=== PATIENT | male | born 1950 | race Caucasian/White ===

== ENCOUNTER → 2016-08-14 | Outpatient (CLI) | payer OTHER, BC ==
[2016-08-14 11:30] LABS: HEMATOCRIT 38.1 % (42-52); MEAN CELL VOLUME 84.9 fL (80-100); MEAN CORPUSCULAR HEMOGLOBIN 28.3 pg (25-34); MEAN CORPUSCULAR HGB CONC 33.3 g/dl (32-36); MEAN PLATELET VOLUME 10.5 fL (7.4-10.4); PLATELET COUNT 270 K/uL (130-400); RED BLOOD COUNT 4.49 M/uL (4.7-6.1); WHITE BLOOD COUNT 6.91 K/uL (4.8-10.8)
[2016-08-14 11:53] LABS: BLOOD UREA NITROGEN 35 mg/dl (7-18); BUN/CREATININE RATIO 19.6 (10-20); CALCIUM 8.9 mg/dl (8.5-10.1); CARBON DIOXIDE 26 mmol/L (21-32); CHLORIDE 107 mmol/L (98-107); GLUCOSE 168 mg/dl (70-99); POTASSIUM 4.8 mmol/L (3.5-5.1); SODIUM 140 mmol/L (136-145)
[2016-08-14 11:55] LABS: URINE PROTIEN/CREAT RATIO 1.9 (0-0.2); URINE TOTAL PROTEIN 158.1 mg/dl (0-11.9)
[2016-08-14 12:04] LABS: PHOSPHORUS 4.1 mg/dl (2.5-4.9)
[2016-08-14 12:06] LABS: URINE APPEARANCE CLEAR (CLEAR); URINE BILIRUBIN NEG (NEG); URINE COLOR YELLOW; URINE NITRITE NEG (NEG); URINE SPECIFIC GRAVITY 1.009 (1.000-1.030); UROBILINOGEN NEG (NEG)
[2016-08-14 12:28] LABS: MANUAL MICROSCOPIC REQUIRED? NO; REVIEW REQ? NO
== END | disposition home or self-care (01) ==
LOC: C.LABBC 08:11
PROVIDERS: ATTEND Internal Medicine Nephrology
DX: I10 Essential (primary) hypertension (principal); D64.9 Anemia, unspecified; N18.3 Chronic kidney disease, stage 3 (moderate); R80.9 Proteinuria, unspecified; E55.9 Vitamin D deficiency, unspecified; E11.65 Type 2 diabetes mellitus with hyperglycemia

== ENCOUNTER → 2016-09-11 | Outpatient (CLI) | payer OTHER, BC ==
[2016-09-11 13:49] LABS: ESTIMATED AVERAGE GLUCOSE 203 mg/dl; HA1C FLAG Normal (Normal)
== END | disposition home or self-care (01) ==
LOC: C.LABBC 10:19
PROVIDERS: ATTEND Nurse Practitioner Family
DX: E11.3299 Type 2 diabetes mellitus with mild nonproliferative diabetic retinopathy without macular edema, unspecified eye (principal)

== ENCOUNTER → 2016-10-05 | Outpatient (CLI) | payer OTHER, BC ==
--- NOTE | 2016-10-05 09:52 | DIAGNOSTIC IMAGING REPORT ---
CHEST 2 VIEWS ROUTINE CLINICAL HISTORY: J20.9 Acute [id number] dyspnea COMPARISON STUDY: No previous studies for comparison. FINDINGS: The bones soft tissues and hemidiaphragms are normal. The cardiomediastinal silhouette is normal. The lungs are clear. The pulmonary vasculature is normal. IMPRESSION: Negative chest. Electronically signed by: Alvarado Parikh M.D. 10/05/2016 9:51 AM Dictated Date/Time: 10/05/2016 9:51 AM
== END | disposition home or self-care (01) ==
LOC: C.RADBC 09:38
PROVIDERS: ATTEND Physician Assistant Medical
DX: J20.9 Acute bronchitis, unspecified (principal)

== ENCOUNTER → 2016-12-12 | Outpatient (CLI) | payer OTHER, BC ==
[~2016-12-12] MED LIST: ASPEC325 PO; ASPI81TA28 PO; ATOR-26 PO; CARV12.52 PO; CPR/500 PO; ERGO500037 PO; FURO-85 PO; INSU1.2I SQ; INSU1INJ2 SQ; LOSA100T65 PO; NTRGSL/4 UT; VNTHFA/IN INH; XRL15 PO
[2016-12-12 13:34] LABS: HEMATOCRIT 39.8 % (42-52); MEAN CELL VOLUME 86.1 fL (80-100); MEAN CORPUSCULAR HEMOGLOBIN 28.1 pg (25-34); MEAN CORPUSCULAR HGB CONC 32.7 g/dl (32-36); MEAN PLATELET VOLUME 9.8 fL (7.4-10.4); PLATELET COUNT 278 K/uL (130-400); RED BLOOD COUNT 4.62 M/uL (4.7-6.1); WHITE BLOOD COUNT 6.79 K/uL (4.8-10.8)
[2016-12-12 14:08] LABS: CALCIUM 8.6 mg/dl (8.5-10.1)
[2016-12-12 14:16] LABS: URINE APPEARANCE CLEAR (CLEAR); URINE BILIRUBIN NEG (NEG); URINE COLOR YELLOW; URINE EPITHELIAL CELL AUTO 0-5 /lpf (0-5); URINE NITRITE NEG (NEG); URINE SPECIFIC GRAVITY 1.016 (1.000-1.030); UROBILINOGEN NEG (NEG)
[2016-12-12 14:17] LABS: URINE PROTIEN/CREAT RATIO 2.5 (0-0.2); URINE TOTAL PROTEIN 214.3 mg/dl (0-11.9)
[2016-12-12 14:19] LABS: ESTIMATED AVERAGE GLUCOSE 217 mg/dl; HA1C FLAG Normal (Normal)
[2016-12-12 14:24] LABS: MANUAL MICROSCOPIC REQUIRED? NO; REVIEW REQ? NO
[2016-12-12 14:27] LABS: BLOOD UREA NITROGEN 40 mg/dl (7-18); BUN/CREATININE RATIO 17.5 (10-20); CARBON DIOXIDE 24 mmol/L (21-32); CHLORIDE 110 mmol/L (98-107); FERRITIN 73.6 ng/ml (8.0-388.0); GLUCOSE 46 mg/dl (70-99); PHOSPHORUS 3.8 mg/dl (2.5-4.9); POTASSIUM 5.2 mmol/L (3.5-5.1); SODIUM 142 mmol/L (136-145); TOTAL IRON BINDING CAPACITY 326 mcg/dl (250-450)
== END | disposition home or self-care (01) ==
LOC: C.LABBC 09:51
PROVIDERS: ATTEND Internal Medicine Nephrology
DX: I10 Essential (primary) hypertension (principal); D64.9 Anemia, unspecified; E11.65 Type 2 diabetes mellitus with hyperglycemia; R31.29 Other microscopic hematuria; N18.3 Chronic kidney disease, stage 3 (moderate); E55.9 Vitamin D deficiency, unspecified; Z11.59 Encounter for screening for other viral diseases

== ENCOUNTER → 2017-02-05 | Outpatient (CLI) | payer OTHER, BC ==
[2017-02-05 11:50] LABS: URINE APPEARANCE CLEAR (CLEAR); URINE BILIRUBIN NEG (NEG); URINE COLOR YELLOW; URINE EPITHELIAL CELL AUTO 0-5 /lpf (0-5); URINE NITRITE NEG (NEG); UROBILINOGEN NEG (NEG)
[2017-02-05 11:51] LABS: MANUAL MICROSCOPIC REQUIRED? NO; REVIEW REQ? NO
[2017-02-05 11:57] LABS: URINE PROTIEN/CREAT RATIO 1.3 (0-0.2); URINE TOTAL PROTEIN 123.9 mg/dl (0-11.9)
[2017-02-05 11:57] LABS: BLOOD UREA NITROGEN 55 mg/dl (7-18); BUN/CREATININE RATIO 23.1 (10-20); CALCIUM 8.7 mg/dl (8.5-10.1); CARBON DIOXIDE 24 mmol/L (21-32); CHLORIDE 110 mmol/L (98-107); GLUCOSE 196 mg/dl (70-99); PHOSPHORUS 4.1 mg/dl (2.5-4.9); POTASSIUM 4.9 mmol/L (3.5-5.1); SODIUM 141 mmol/L (136-145)
== END | disposition home or self-care (01) ==
LOC: C.LABBC 08:54
PROVIDERS: ATTEND Internal Medicine Nephrology
DX: I10 Essential (primary) hypertension (principal); D64.9 Anemia, unspecified; N18.3 Chronic kidney disease, stage 3 (moderate); R80.9 Proteinuria, unspecified; E55.9 Vitamin D deficiency, unspecified

== ENCOUNTER 2017-04-24 23:27 | Inpatient (IN) | payer OTHER, BC ==
[~2017-04-24] VITALS: Ht 175.3 cm; Wt 73.6 kg
[2017-04-24] MEDS ORDERED: SODIUM CHLORIDE 0.9% 1000ML 1,000 ML IV STA (23:48)
[2017-04-24] MEDS ORDERED: HYDROmorphone INJ 1 MG/ML SYR IV STA (23:48)
[2017-04-24] MEDS ORDERED: ONDANSETRON INJ 2 MG/ML 2 ML VIAL IV STA (23:48)
[2017-04-25] VITALS (18 sets, daily range): BP systolic 167–199; BP diastolic 72–95; PULSE 67–91; TEMP 36.3–37.1; O2SAT 93–97; Ht 175.3 cm; Wt 73.6 kg
--- NOTE | 2017-04-25 00:04 | EMERGENCY ROOM VISIT NOTE ---
History Report prepared by Lida: Norris Lee Under the Supervision of: Dr. Baudilio Miner M.D. First contact with patient: 23:43 Chief Complaint: ABDOMINAL PAIN Stated Complaint: UPPER ABDOMINAL PAIN, GALLBLADDER History of Present Illness The patient is a 67 year old male who presents to the Emergency Room with complaints of worsening upper abdominal pain starting yesterday morning. The patient additionally states that he has been having some fever and nausea, and he thinks that it is due to his gall bladder. He denies any vomiting, back pain , chest pain, diarrhea, urinary symptoms, rashes, headache, shortness of breath , and leg swelling. The patient states that the pain is not worse with breathing. He notes that he has a history of 4 stents being placed, and he currently takes aspirin daily. Source of History: patient Onset: yesterday morning Position: abdomen (upper) Timing: worsening Associated Symptoms: + fevers, + nausea, No headache, No chest pain, No SOB , No vomiting, No back pain, No diarrhea, No urinary symptoms, No rash Review of Systems See HPI for pertinent positives & negatives. A total of 10 systems reviewed and were otherwise negative. Past Medical & Surgical Surgical Problems: (1) Stented coronary artery Social History Smoking Status: Never Smoker Marital Status: Housing Status: lives with family Occupation Status: employed Current/Historical Medications Scheduled Aspirin (Aspirin Ec), 81 MG PO DAILY Atorvastatin (Lipitor), 80 MG PO HS Carvedilol (Coreg), 12.5 MG PO BID Ergocalciferol (Vitamin D 76491 Unit), 50,000 UNIT PO WK Furosemide (Lasix), 20 MG PO DAILY Insulin Aspart (Novolog Penfill), 6 UNITS SQ TIDM Insulin Glargine (Toujeo Solostar), 24 UNITS SQ HS Losartan Potassium (Cozaar), 100 MG PO DAILY Scheduled PRN Albuterol Hfa (Ventolin Hfa), 1-2 PUFFS INH Q6H PRN for SOB/Wheezing Nitroglycerin (Nitrostat), 0.4 MG UT UD PRN for Chest Pain Allergies Coded Allergies: No Known Allergies (Unverified , 04/24/17) Physical Exam Vital Signs Date Time Temp Pulse Resp B/P (MAP) Pulse Ox O2 Delivery O2 Flow Rate FiO2 04/25/17 01:44 66 18 178/95 95 Room Air 04/25/17 00:08 75 18 184/93 95 Room Air 04/24/17 23:38 37.0 81 18 195/94 96 Room Air Physical Exam GENERAL: Patient is uncomfortable appearing and in moderate distress. HEENT: No acute trauma, normocephalic atraumatic, mucous membranes moist, no nasal congestion, no scleral icterus. NECK: No stridor, no adenopathy, no meningismus, trachea is midline. LUNGS: No dyspnea. Clear to auscultation and equal bilaterally. No wheeze, no rhonchi. HEART: Regular rate and rhythm. No murmurs, rubs, gallops appreciated. ABDOMEN: Right upper quadrant tenderness to palpation. Soft, bowel sounds positive, no masses appreciated, no peritonitis. BACK: No midline tenderness, no CVA tenderness EXTREMITIES: Normal motion all extremities, no cyanosis, no edema. NEUROLOGIC: Alert and oriented, no acute motor or sensory deficits, no focal weakness, cranial nerves grossly intact. SKIN: No rash, no jaundice, no diaphoresis. Medical Decision & Procedures ER Provider Diagnostic Interpretation: Radiology results and stated below per my review and radiologist interpretation: US RUQ: Partially distended GB with multiple gallstones. No evidence of GB wall thickening or pericholecystic fluid. No biliary dilatation. Evaluation of sonographic Valenzuela sign is limited by recent administration of pain medication. Visualized pancreas is mildly heterogeneous, nonspecific but suggest correlation for evidence of pancreatitis. Pancreatic duct is within normal limits. Liver and right kidney unremarkable. Radiologist: Baudilio Schumacher MD Laboratory Results 04/25/17 00:05 Red Blood Count 5.14, Mean Corpuscular Volume 83.1, Mean Corpuscular Hemoglobin 27.8, Mean Corpuscular Hemoglobin Concent 33.5, Mean Platelet Volume 9.5, Neutrophils (%) (Auto) 83.6, Lymphocytes (%) (Auto) 6.3, Monocytes (%) (Auto) 9.4, Eosinophils (%) (Auto) 0.4, Basophils (%) (Auto) 0.1, Neutrophils # (Auto) 12.12, Lymphocytes # (Auto) 0.92, Monocytes # (Auto) 1.37, Eosinophils # (Auto) 0.06, Basophils # (Auto) 0.02 04/25/17 00:05 Test 04/25/17 00:05 04/25/17 01:50 White Blood Count 14.52 K/uL (4.8-10.8) Red Blood Count 5.14 M/uL (4.7-6.1) Hemoglobin 14.3 g/dL (14.0-18.0) Hematocrit 42.7 % (42-52) Mean Corpuscular Volume 83.1 fL (80-100) Mean Corpuscular Hemoglobin 27.8 pg (25-34) Mean Corpuscular Hemoglobin Concent 33.5 g/dl (32-36) Platelet Count 248 K/uL (130-400) Mean Platelet Volume 9.5 fL (7.4-10.4) Neutrophils (%) (Auto) 83.6 % Lymphocytes (%) (Auto) 6.3 % Monocytes (%) (Auto) 9.4 % Eosinophils (%) (Auto) 0.4 % Basophils (%) (Auto) 0.1 % Neutrophils # (Auto) 12.12 K/uL (1.4-6.5) Lymphocytes # (Auto) 0.92 K/uL (1.2-3.4) Monocytes # (Auto) 1.37 K/uL (0.11-0.59) Eosinophils # (Auto) 0.06 K/uL (0-0.5) Basophils # (Auto) 0.02 K/uL (0-0.2) RDW Standard Deviation 39.9 fL (36.4-46.3) RDW Coefficient of Variation 13.3 % (11.5-14.5) Immature Granulocyte % (Auto) 0.2 % Immature Granulocyte # (Auto) 0.03 K/uL (0.00-0.02) Echinocytes 1+ Anion Gap 8.0 mmol/L (3-11) Est Creatinine Clear Calc Drug Dose 33.7 ml/min Estimated GFR () 35.7 Estimated GFR (Non- 30.8 BUN/Creatinine Ratio 20.1 (10-20) Calcium Level 9.0 mg/dl (8.5-10.1) Total Bilirubin 0.4 mg/dl (0.2-1) Direct Bilirubin < 0.1 mg/dl (0-0.2) Aspartate Amino Transf (AST/SGOT) 12 U/L (15-37) Alanine Aminotransferase (ALT/SGPT) 23 U/L (12-78) Alkaline Phosphatase 109 U/L (45-117) Troponin I 0.026 ng/ml (0-0.045) Total Protein 8.2 gm/dl (6.4-8.2) Albumin 3.7 gm/dl (3.4-5.0) Lipase 46017 U/L (73-393) Urine Color YELLOW Urine Appearance CLEAR (CLEAR) Urine pH 5.0 (4.5-7.5) Urine Specific [place] 1.022 (1.000-1.030) Urine Protein 3+ (NEG) Urine Glucose (UA) 2+ (NEG) Urine Ketones NEG (NEG) Urine Occult Blood 1+ (NEG) Urine Nitrite NEG (NEG) Urine Bilirubin NEG (NEG) Urine Urobilinogen NEG (NEG) Urine Leukocyte Esterase NEG (NEG) Urine WBC (Auto) 1-5 /hpf (0-5) Urine RBC (Auto) 0-4 /hpf (0-4) Urine Hyaline Casts (Auto) 1-5 /lpf (0-5) Urine Epithelial Cells (Auto) 0-5 /lpf (0-5) Urine Bacteria (Auto) NEG (NEG) Laboratory results as reviewed by me. Medications Administered Medications (Trade) Dose Ordered Sig/Carlos Eduardo Route Start Time Stop Time Status Last Admin Dose Admin Hydromorphone HCl (Dilaudid Inj) 1 mg NOW STAT IV 04/24/17 23:48 04/24/17 23:49 DC 04/25/17 00:02 1 MG Ondansetron HCl (Zofran Inj) 4 mg NOW STAT IV 04/24/17 23:48 04/24/17 23:49 DC 04/24/17 23:59 4 MG Sodium Chloride 1,000 ml @ 999 mls/hr Q1H1M STAT IV 04/24/17 23:48 04/25/17 00:48 DC 04/25/17 00:02 999 MLS/HR Sodium Chloride 1,000 ml @ 100 mls/hr Q10H STAT IV 04/25/17 02:08 04/25/17 03:27 DC 04/25/17 02:15 100 MLS/HR Hydromorphone HCl (Dilaudid Inj) 1 mg NOW STAT IV 04/25/17 02:08 04/25/17 02:09 DC 10/18/17 02:14 1 MG ECG Indication: abdominal pain Rate (beats per minute): 72 Rhythm: normal sinus Findings: no acute ischemic change, no ectopy ED Course 2342: The patient was evaluated in room A10. A complete history and physical exam was performed. 2348: Sodium Chloride 1000 ml @ 999 mls/hr IV, Zofran 4mg IV, Dilaudid 1mg IV 0101: I reevaluated the patient, and he was feeling much better. He is awaiting further testing. 0202: I reassessed the patient, and the pain is coming back 0205: Discussed the patient's case with Dr. Vazquez. The patient will be evaluated for further treatment and disposition. 0208: Dilaudid 1mg IV, Sodium Chloride 1000 ml @ 100 mls/hr IV Medical Decision Differential: Cholecystitis, Gallbladder disfunction, Hepatic Disfunction, Gastritis/PUD, Pancreatitis, ACS, Aortic Pathology, amongst other pathologies entertained. Very pleasant 67 yr old male arrives with 12 hours epigastric pain associated with nausea and decreased appetite. Some RLQ TTP. No peritonitis. US with gallstones though no overt GB inflammation, though does note haziness of pancreas. Labs with mild WBC elevation but without fever nor obvious GB infection will hold on abx. Lipase severely elevated consistent with pancreatitis seen on US. This is consistent with gallstone pancreatitis. He is stable, breathing comfortably and does not have surgical abdomen by examination. Will come in to hospitalist for further management/evaluation. Medication Reconcilliation Current Medication List: was personally reviewed by me Blood Pressure Screening Patient's blood pressure: Elevated blood pressure Managed by the hospitalist Consults Time Called: 014 Consulting Physician: Dr. Vazquez Returned Call: 020 Discussed the patient's case with Dr. Vazquez. The patient will be evaluated for further treatment and disposition. Impression Primary Impression: Gallstone pancreatitis Scribe Attestation The scribe's documentation has been prepared under my direction and personally reviewed by me in its entirety. I confirm that the note above accurately reflects all work, treatment, procedures, and medical decision making performed by me. Departure Information Dispostion Being Evaluated By Hospitalist Referrals Louie Blake M.D. (PCP) Patient Instructions My [facility]
[2017-04-25 00:16] LABS: HEMATOCRIT 42.7 % (42-52); MEAN CELL VOLUME 83.1 fL (80-100); MEAN CORPUSCULAR HEMOGLOBIN 27.8 pg (25-34); MEAN CORPUSCULAR HGB CONC 33.5 g/dl (32-36); MEAN PLATELET VOLUME 9.5 fL (7.4-10.4); PLATELET COUNT 248 K/uL (130-400); RED BLOOD COUNT 5.14 M/uL (4.7-6.1); WHITE BLOOD COUNT 14.52 K/uL (4.8-10.8)
[2017-04-25 00:41] LABS: BASO % 0.1 %; BASO ABS # 0.02 K/uL (0-0.2); COMPLETE YES; ECHINOCYTES 1+; EOS % 0.4 %; IG% 0.2 %; LYMPH % 6.3 %; LYMPH ABS # 0.92 K/uL (1.2-3.4); MONO % 9.4 %; NEUT % 83.6 %
[2017-04-25 00:45] LABS: ALT/SGPT 23 U/L (12-78); AST/SGOT 12 U/L (15-37); BLOOD UREA NITROGEN 43 mg/dl (7-18); BUN/CREATININE RATIO 20.1 (10-20); CARBON DIOXIDE 23 mmol/L (21-32); CHLORIDE 108 mmol/L (98-107); CREATININE 2.16 mg/dl (0.60-1.40); GLUCOSE 271 mg/dl (70-99); SODIUM 139 mmol/L (136-145)
[2017-04-25 00:50] LABS: ALKALINE PHOSPHATASE 109 U/L (45-117)
[2017-04-25] MEDS ORDERED: LOSA100T65 PO (01:41)
[2017-04-25] MEDS ORDERED: ATOR-26 PO (01:41)
[2017-04-25] MEDS ORDERED: FURO-85 PO (01:41)
[2017-04-25] MEDS ORDERED: INSU1.2I SQ (01:42)
[2017-04-25] MEDS ORDERED: INSU1INJ2 SQ (01:42)
[2017-04-25] MEDS ORDERED: ERGO500037 PO (01:43)
[2017-04-25] MEDS ORDERED: ASPI81TA28 PO (01:44)
[2017-04-25] MEDS ORDERED: CARV12.52 PO (01:44)
[2017-04-25] MEDS ORDERED: VNTHFA/IN INH (01:44)
[2017-04-25] MEDS ORDERED: NTRGSL/4 UT (01:45)
[2017-04-25 02:04] LABS: URINE APPEARANCE CLEAR (CLEAR); URINE BILIRUBIN NEG (NEG); URINE COLOR YELLOW; URINE EPITHELIAL CELL AUTO 0-5 /lpf (0-5); URINE NITRITE NEG (NEG); URINE SPECIFIC GRAVITY 1.022 (1.000-1.030); UROBILINOGEN NEG (NEG); ZZUR CULT IF INDIC CLEAN CATCH NO
[2017-04-25] MEDS ORDERED: SODIUM CHLORIDE 0.9% 1000ML 1,000 ML IV STA (02:08)
[2017-04-25] MEDS ORDERED: HYDROmorphone INJ 1 MG/ML SYR IV STA (02:08)
[2017-04-25 02:23] LABS: MANUAL MICROSCOPIC REQUIRED? NO; REVIEW REQ? NO
[2017-04-25] MEDS ORDERED: MoRPHine SULFATE 4 MG/ML 1 ML CARP\\VIAL IV PRN (02:30)
[2017-04-25] MEDS ORDERED: ONDANSETRON INJ 2 MG/ML 2 ML VIAL IV PRN (02:30)
[2017-04-25] MEDS: HydrALAZINE HCL 20 MG/ML VIAL IV. PRN ×3 (02:58→11:37)
--- NOTE | 2017-04-25 03:01 | History and Physical ---
History & Physical Date & Time of Service: Apr 25, 2017 at 02:38 Chief Complaint: Upper Abdominal Pain, Gallbladder Primary Care Physician: Louie Blake M.D. History of Present Illness Source: patient This is a 67 yo m with a history of HTN, DMII, CKD and ME that is presenting to us with abdominal pain which started yesterday. The patient states that the night prior the patient started to suffer from non radiating epigastric pain. The pain was a 10/10 in nature. He notes that he was unable to eat due to N&V as well as poor appetite. No change in colour of stool or urine. The pain did not improve with his typical " massage" techniques which would normally resolve his gallbladder "spasms". He was concerned as the pain did not improve overnight and came to the ED for evaluation. He has no history of abdominal surgery. Drinks on an occasional and social basis with no recent alcohol use. Past Medical/Surgical History HTN HLP DMII CKD III CAD/ ME stent x 4 in 2014 Family History FH: myocardial infarction Social History Smoking Status: Never Smoker Smokeless Tobacco Use: No Alcohol Use: socially Drug Use: none Marital Status: Housing status: lives with family Occupational Status: employed Immunizations History of Influenza Vaccine: Unknown History of Tetanus Vaccine?: Unknown History of Pneumococcal: Unknown History of Hepatitis B Vaccine: Unknown Multi-Drug Resistant Organisms History of MDRO: No Allergies Coded Allergies: No Known Allergies (Unverified , 04/24/17) Home Medications Scheduled Aspirin (Aspirin Ec), 81 MG PO DAILY Atorvastatin (Lipitor), 80 MG PO HS Carvedilol (Coreg), 12.5 MG PO BID Ergocalciferol (Vitamin D 81370 Unit), 50,000 UNIT PO WK Furosemide (Lasix), 20 MG PO DAILY Insulin Aspart (Novolog Penfill), 6 UNITS SQ TIDM Insulin Glargine (Toujeo Solostar), 24 UNITS SQ HS Losartan Potassium (Cozaar), 100 MG PO DAILY Scheduled PRN Albuterol Hfa (Ventolin Hfa), 1-2 PUFFS INH Q6H PRN for SOB/Wheezing Nitroglycerin (Nitrostat), 0.4 MG UT UD PRN for Chest Pain Review of Systems Constitutional: No fever, No chills, No sweats Eyes: No worsening of vision ENT: No hearing loss Respiratory: No cough, No sputum, No wheezing, No shortness of breath, No dyspnea on exertion, No dyspnea at rest Cardiovascular: No chest pain Abdomen: + pain, + nausea, + vomiting, No diarrhea, No constipation Musculoskeletal: No joint pain, No muscle pain Genitourinary - Male: No hematuria Neurologic: No weakness, No numbness/tingling, No balance problems Psychiatric: No depression symptoms Endocrine: No fatigue Integumentary: No rash Physical Exam Vital Signs Date Time Temp Pulse Resp B/P (MAP) Pulse Ox O2 Delivery O2 Flow Rate FiO2 04/25/17 01:44 66 18 178/95 95 Room Air 04/25/17 00:08 75 18 184/93 95 Room Air 04/24/17 23:38 37.0 81 18 195/94 96 Room Air General Appearance: no apparent distress Head: normocephalic, atraumatic Eyes: normal inspection ENT: normal ENT inspection Neck: supple Respiratory/Chest: no respiratory distress, no accessory muscle use, + decreased breath sounds (throughout without wheezing noted) Cardiovascular: regular rate, rhythm, no murmur, normal peripheral pulses Abdomen/GI: normal bowel sounds, soft, no organomegaly, + tenderness ( epigastric) Back: normal inspection, no CVA tenderness Extremities/Musculoskelatal: normal inspection, no calf tenderness, no pedal edema, normal range of motion Neurologic/Psych: alert, normal mood/affect, oriented x 3 Skin: normal color, warm/dry, no rash Lymphatic: no adenopathy Diagnostics Laboratory Results Results Past 24 Hours Test 04/25/17 00:05 04/25/17 01:50 Range/Units White Blood Count 14.52 4.8-10.8 K/uL Red Blood Count 5.14 4.7-6.1 M/uL Hemoglobin 14.3 14.0-18.0 g/dL Hematocrit 42.7 42-52 % Mean Corpuscular Volume 83.1 80-100 fL Mean Corpuscular Hemoglobin 27.8 25-34 pg Mean Corpuscular Hemoglobin Concent 33.5 32-36 g/dl Platelet Count 248 130-400 K/uL Mean Platelet Volume 9.5 7.4-10.4 fL Neutrophils (%) (Auto) 83.6 % Lymphocytes (%) (Auto) 6.3 % Monocytes (%) (Auto) 9.4 % Eosinophils (%) (Auto) 0.4 % Basophils (%) (Auto) 0.1 % Neutrophils # (Auto) 12.12 1.4-6.5 K/uL Lymphocytes # (Auto) 0.92 1.2-3.4 K/uL Monocytes # (Auto) 1.37 0.11-0.59 K/uL Eosinophils # (Auto) 0.06 0-0.5 K/uL Basophils # (Auto) 0.02 0-0.2 K/uL RDW Standard Deviation 39.9 36.4-46.3 fL RDW Coefficient of Variation 13.3 11.5-14.5 % Immature Granulocyte % (Auto) 0.2 % Immature Granulocyte # (Auto) 0.03 0.00-0.02 K/uL Echinocytes 1+ Sodium Level 139 136-145 mmol/L Potassium Level 5.0 3.5-5.1 mmol/L Chloride Level 108 98-107 mmol/L Carbon Dioxide Level 23 21-32 mmol/L Anion Gap 8.0 3-11 mmol/L Blood Urea Nitrogen 43 7-18 mg/dl Creatinine 2.16 0.60-1.40 mg/dl Est Creatinine Clear Calc Drug Dose 33.7 ml/min Estimated GFR () 35.7 Estimated GFR (Non- 30.8 BUN/Creatinine Ratio 20.1 10-20 Random Glucose 271 70-99 mg/dl Calcium Level 9.0 8.5-10.1 mg/dl Total Bilirubin 0.4 0.2-1 mg/dl Direct Bilirubin < 0.1 0-0.2 mg/dl Aspartate Amino Transf (AST/SGOT) 12 15-37 U/L Alanine Aminotransferase (ALT/SGPT) 23 12-78 U/L Alkaline Phosphatase 109 45-117 U/L Troponin I 0.026 0-0.045 ng/ml Total Protein 8.2 6.4-8.2 gm/dl Albumin 3.7 3.4-5.0 gm/dl Lipase 49751 73-393 U/L Urine Color YELLOW Urine Appearance CLEAR CLEAR Urine pH 5.0 4.5-7.5 Urine Specific [place] 1.022 1.000-1.030 Urine Protein 3+ NEG Urine Glucose (UA) 2+ NEG Urine Ketones NEG NEG Urine Occult Blood 1+ NEG Urine Nitrite NEG NEG Urine Bilirubin NEG NEG Urine Urobilinogen NEG NEG Urine Leukocyte Esterase NEG NEG Urine WBC (Auto) 1-5 0-5 /hpf Urine RBC (Auto) 0-4 0-4 /hpf Urine Hyaline Casts (Auto) 1-5 0-5 /lpf Urine Epithelial Cells (Auto) 0-5 0-5 /lpf Urine Bacteria (Auto) NEG NEG Diagnostic Radiology Gall uSG: partially distended GB with multiple gallstones. No evidence of GB wall thickening or pericholecystic fluid. No biliary dilation. Evaluation of sonographic Valenzuela sign is limited by recent administration of pain medication. Visualized pancreas is mildly heterogeneous, nonspecific but suggest correlation for evidence of pancreatitis. Pancreatic duct is within normal limits. Rema and kidney unremarkable Impression Assessment and Plan This is a 67 yo m suffering from gallstone pancreatitis. This patient would benefit from an MRCP however considering his elevated creatinine will have to defer and potentially is a candidate for ERCP. Will consult GI for input. GallStone pancreatitis - Med surg admission - NPO except ice chips - Pain control with morphine and dilaudid - Consult GI - Lipase repeat in am - NSS @ 150cc/h - Cipro IV abx as patient has obstruction and leukocytosis HTN - once tolerating orals continue coreg 12.5 mg, lasix 20 mg daily and Losartan 100 mg - Hydralazine 10 mg for systolic > 180 DMII Lantus 20 units HS; does take 24 units of toujeo hs - insulin ISS with BSG AC HS CKD III stable - continue to monitor cr HLP/ CAD -atorvastatin 80 mg daily and asa 81 mg once tolerating PO DVT Prophylaxis - SCD in case procedure req Attending Addendum: I have physically seen and examined this patient, have directed the resident's medical activities, and agree with the H&P as noted above with the following exceptions as noted. The patient is awake, alert and oriented 3, well-developed and well-nourished , normocephalic and atraumatic, lying in bed and in no acute distress. HEENT--PERRL, EOMI, mucous membranes and oropharynx dry. Neck--supple, no JVD or bruits, thyroid normal, trachea midline, no adenopathy. Heart--normal S1 and S2, no extra beats, no murmurs, rubs or gallops. Lungs--clear bilaterally but decreased throughout no respiratory distress, no accessory muscle use. Abdomen--normal bowel sounds and soft. Epigastric tenderness. Nondistended. no hernias or masses, no organomegaly. Extremities--no cyanosis, clubbing or edema. There are good distal pulses b/l. Dermatologic--normal skin turgor, normal color, warm and dry, no abnormal lymph nodes, no rash. Neurologic--cranial nerves II through XII grossly intact. Rheumatologic--normal range of motion, nontender, muscles and joints. Psychiatric--normal affect. Assessment and Plan: Gallstone pancreatitis-- Admit to medical surgical floor Nothing by mouth except ice chips and essential medications Serial CBC with differential, BMP, LFTs and lipase. NSS at 150 ML's per hour. Cipro 40 mg IV every 12 hours. Diabetes mellitus-- usual dosing of Toujeo is 24 units at bedtime. Glucose is elevated at 271 upon admission. He will be nothing by mouth. We'll place him on Lantus 10 units subcutaneous at bedtime. Placement Accu-Cheks before meals and at bedtime with NovoLog coverage per scale. CAD/Hypertension/chronic kidney disease stage III-- Continue Coreg at reduced dose from 12.5 mg by mouth twice a day to 6.25 mg by mouth twice a day with hold parameters. Hold Lasix, losartan and aspirin. Hydralazine 10 mg IV every 6 hours when necessary systolic blood pressure greater than 160. Hyperlipidemia-- Hold atorvastatin. Level of Care Med/Surg Advanced Directives Existing Advance Directive: No Existing Living Will: No Existing Power of Corrosion Control Specialist: No Resuscitation Status FULL RESUSCITATION VTE Prophylaxis VTE Risk Assessment Done? Y/N: Yes Risk Level: Moderate Given or contraindicated: SCD's Social Service Consult None Apply Note Total Time: Critical Care 30 - 74 minutes Additional Copies To Louie Blake M.D.
[2017-04-25] MEDS ORDERED: NITROGLYCERIN 0.4 MG SL PER TAB CHARGE UT PRN (03:15)
[2017-04-25] MEDS ORDERED: ALBUTEROL HFA 8 GM INHALER INH PRN (03:15)
[2017-04-25] MEDS ORDERED: CIPROFLOXACIN / D5W 400 MG in PREMIXED IN D5W 200 ML IV STA (03:30)
[2017-04-25] MEDS ORDERED: NURSING DECISION MEDICATION ORDER SCH (03:45)
[2017-04-25] MEDS ORDERED: DEXTROSE 50% 50 ML SYR IV PRN (03:45)
[2017-04-25] MEDS ORDERED: CIPROFLOXACIN CONSULT ACTIVE PRN ×2 (03:45)
[2017-04-25] MEDS ORDERED: GLUCAGON FOR INJ 1 MG VIAL SQ PRN (03:45)
[2017-04-25] MEDS ORDERED: GLUCOSE 10 TABS/TUBE PO PRN (03:45)
[2017-04-25] MEDS ORDERED: GLUCOSE 40% GEL 15 GM TUBE PO PRN (03:45)
[2017-04-25] MEDS: SODIUM CHLORIDE 0.9% 1000ML 1,000 ML IV SCH ×4 (03:46→23:56)
[2017-04-25] MEDS: CARVEDILOL 6.25 MG TAB PO SCH ×2 (05:26→21:34)
[2017-04-25] MEDS ORDERED: HydrALAZINE HCL 20 MG/ML VIAL IV. STA (06:11)
[2017-04-25] MEDS: INSULIN ASPART 100 UNITS/ML 3 ML PEN SC SCH ×3 (06:21→18:23)
--- NOTE | 2017-04-25 06:39 | DIAGNOSTIC IMAGING REPORT ---
ABDOMINAL ULTRASOUND, RIGHT UPPER QUADRANT HISTORY: Right upper quadrant abdominal pain, nausea and fever. COMPARISON: None. FINDINGS: Liver is sonographically normal. There are numerous gallstones within the gallbladder. No gallbladder wall thickening or pericholecystic fluid is present. Sonographic Valenzuela sign could not be assessed in this patient due to pain medication administration. There is no biliary ductal dilatation. Common bile duct measures 4 mm in caliber. The pancreatic body is normal. The head and tail are slightly obscured. There is no right hydronephrosis. IMPRESSION: 1. Cholelithiasis. No gallbladder wall thickening or pericholecystic fluid. 2. No biliary ductal dilatation. 3. Partially obscured pancreas. Electronically signed by: Gonzalo Babb M.D. 04/25/2017 6:37 AM Dictated Date/Time: 04/25/2017 6:36 AM
--- NOTE | 2017-04-25 06:53 | Family Medicine Progress Note ---
Progress Note Date of Service Apr 25, 2017. Subjective Pt evaluation today including: conversation w/ patient, physical exam, chart review, lab review, review of studies, conversation w/ internal audit consultant, review of inpatient medication list Patient currently feeling well. Had an episode of chest pain earlier this morning, relieved with nitroglycerin. EKG and troponin within normal limits at this time. Denies any abdominal pain, nausea, vomiting currently no chest pain, dyspnea, back pain. Bleeding assessment from GI. All Other Systems: Reviewed and Negative Objective Vital Signs Date Time Temp Pulse Resp B/P (MAP) Pulse Ox O2 Delivery O2 Flow Rate FiO2 04/25/17 05:52 82 199/90 (126) 04/25/17 04:55 80 195/95 (128) 04/25/17 04:30 Room Air 04/25/17 03:42 36.6 67 16 194/90 95 Room Air 04/25/17 03:15 36.6 67 194/90 (124) 95 Room Air 04/25/17 03:03 57 18 162/89 98 04/25/17 03:03 37.0 57 18 162/89 98 Room Air 04/25/17 01:44 66 18 178/95 95 Room Air 04/25/17 00:08 75 18 184/93 95 Room Air 04/24/17 23:38 37.0 81 18 195/94 96 Room Air Physical Exam General Appearance: WD/WN, no apparent distress Eyes: normal inspection ENT: hearing grossly normal Neck: supple, no adenopathy Respiratory/Chest: lungs clear, normal breath sounds, no respiratory distress, no accessory muscle use Cardiovascular: regular rate, rhythm, no murmur Abdomen: normal bowel sounds, soft, + tenderness (epigastric region), + pertinent finding (No back/flank pain) Extremities: no pedal edema, no calf tenderness Neurologic/Psychiatric: alert, normal mood/affect, oriented x 3 Skin: normal color, warm/dry, no rash Laboratory Results Results Past 24 Hours Test 04/25/17 06:05 04/25/17 08:25 04/25/17 11:36 04/25/17 11:50 Range/Units Bedside Glucose 279 231 70-99 mg/dl Troponin I 0.024 0-0.045 ng/ml White Blood Count 16.62 4.8-10.8 K/uL Red Blood Count 4.67 4.7-6.1 M/uL Hemoglobin 12.7 14.0-18.0 g/dL Hematocrit 39.1 42-52 % Mean Corpuscular Volume 83.7 80-100 fL Mean Corpuscular Hemoglobin 27.2 25-34 pg Mean Corpuscular Hemoglobin Concent 32.5 32-36 g/dl Platelet Count 217 130-400 K/uL Mean Platelet Volume 9.3 7.4-10.4 fL Neutrophils (%) (Auto) 83.3 % Lymphocytes (%) (Auto) 6.3 % Monocytes (%) (Auto) 10.0 % Eosinophils (%) (Auto) 0.1 % Basophils (%) (Auto) 0.1 % Neutrophils # (Auto) 13.82 1.4-6.5 K/uL Lymphocytes # (Auto) 1.05 1.2-3.4 K/uL Monocytes # (Auto) 1.67 0.11-0.59 K/uL Eosinophils # (Auto) 0.02 0-0.5 K/uL Basophils # (Auto) 0.02 0-0.2 K/uL RDW Standard Deviation 41.2 36.4-46.3 fL RDW Coefficient of Variation 13.7 11.5-14.5 % Immature Granulocyte % (Auto) 0.2 % Immature Granulocyte # (Auto) 0.04 0.00-0.02 K/uL Prothrombin Time 11.6 9.0-12.0 SECONDS Prothromb Time International Ratio 1.1 0.9-1.1 Activated Partial Thromboplast Time 25.4 21.0-31.0 SECONDS Partial Thromboplastin Ratio 1.0 Test 04/25/17 15:39 04/25/17 18:59 04/25/17 23:43 04/26/17 02:50 Range/Units Total Creatine Kinase 133 121 39-308 U/L Creatine Kinase MB 3.5 3.1 0.5-3.6 ng/ml Creatine Kinase MB Ratio 2.6 2.6 0-3.0 Troponin I 0.237 0.260 0-0.045 ng/ml Activated Partial Thromboplast Time 114.1 65.1 21.0-31.0 SECONDS Partial Thromboplastin Ratio 4.4 2.5 Test 04/26/17 04:44 Range/Units Assessment and Plan 67 yo M with pMHx of HTN, DMII, CKD and KY s/p MELISSA x 4 in 2015 admitted with gallstone pancreatitis confirmed by elevated lipase 46036 and evidence of gallstones on U/S. GallStone pancreatitis - NPO except ice chips - NSS @ 150cc/h - IV Cipro as patient has obstruction and leukocytosis - Pain control with morphine and Dilaudid - GI consulted - planning for non contrast MRCP Chest pain in setting of CAD with h/o of [place] and stent placement - Cardio consulted- recs appreciated. Elevated trop likely is secondary to demand ischemia related to absence of cardiac medications with a rebound hypertension. Will keep in mind the possibility of in stent pathology as he has missed approximately 3-4 days of aspirin. - Continue Coreg 6.25 mg BID, add IV Lopressor 5 mg q4h. - Resume Aspirin 325 mg daily (This patient should never miss a dose of aspirin in his lifetime.) - Resume Atorvastatin 80 mg daily. - Topical Nitrates - Heparin drip, may discontinue heparin after 24 hours negative cardiac enzymes - Serial EKGs and serial cardiac enzymes. HTN - Continue Coreg 6.25 mg BID, add IV Lopressor 5 mg q4h. Lasix 20 mg daily and Losartan 100 mg held - Hydralazine 10 mg for systolic BP > 180 DMII Lantus 20 units HS; does take 24 units of toujeo HS - insulin ISS with BSG AC HS CKD III stable - Trend BMP, continue to monitor creatinine DVT Prophylaxis - SCD in case procedure req - Heparin drip for now Discharge planning: home Resident Tracking Resident Involvement: Resident Care Provided Care Provided: Adult Hospital Medicine Reviewed: Pt Seen/Exam by Me History had chest pain this morning in the middle of chest - given nitro and morphine which relieved the pain. no associated shortness of breath, diaphoresis or palpitation Constitutional: denies: fever Respiratory: negative: short of breath Gastrointestinal/Abdominal: positive: abdominal pain (better) General Appearance: no apparent distress Respiratory: lungs clear, no respiratory distress Cardiovascular: regular rate, rhythm Gastrointestinal: normal bowel sounds, non tender, soft Neurologic/Psychiatric: alert, oriented x 3 Skin Characteristics: warm/dry Assessment/Plan Resident Physician Supervision Note: I independently interviewed and examined the patient and verified the anderson history and physical, reviewed labs and image studies, discussed the case with the resident Dr. Mccullough and agree with the findings and care plan.
[2017-04-25] MEDS ORDERED: INSULIN ASPART 100 UNITS/ML 3 ML PEN SC SCH (07:00)
[2017-04-25] MEDS: MoRPHine SULFATE 2 MG/ML CARP IV PRN ×2 (07:34→20:53)
[2017-04-25] MEDS ORDERED: PNEUMOCOCCAL ADMINISTRATION CHARGE ONE (08:00)
[2017-04-25] MEDS ORDERED: INFLUENZA ADMINISTRATION CHARGE ONE (08:00)
[2017-04-25] MEDS ORDERED: INFLUENZA VACCINE HIGH DOSE 65+ 0.5 ML SYR IM. ONE (08:00)
[2017-04-25] MEDS ORDERED: PNEUMOCOCCAL POLYSACCHARIDES 25 MCG/0.5 ML VIAL/SYR IM. ONE (08:00)
[2017-04-25] MEDS ORDERED: NITROGLYCERIN 0.4 MG SL PER TAB CHARGE SL STA (08:05)
[2017-04-25] MEDS ORDERED: FUROSEMIDE 20 MG TAB PO SCH (09:00)
[2017-04-25] MEDS ORDERED: LOSARTAN POTASSIUM 50 MG TAB PO SCH (09:00)
[2017-04-25] MEDS ORDERED: CARVEDILOL 12.5 MG TAB PO SCH (09:00)
[2017-04-25] MEDS ORDERED: ASPIRIN 81 MG ECTAB PO SCH (09:00)
[2017-04-25] MEDS ORDERED: ASPIRIN 325 MG ECTAB PO ONE (10:40)
[2017-04-25] MEDS ORDERED: ATORVASTATIN 40 MG TAB PO ONE (10:45)
[2017-04-25] MEDS: NITROGLYCERIN OINT 2% 1GM PACKET EXT SCH ×3 (11:27→23:59)
[2017-04-25] MEDS: METOPROLOL TARTRATE 1 MG/ML VIAL IV. SCH ×4 (11:27→23:57)
[2017-04-25 11:58] LABS: BASO % 0.1 %; BASO ABS # 0.02 K/uL (0-0.2); EOS % 0.1 %; HEMATOCRIT 39.1 % (42-52); IG% 0.2 %; LYMPH % 6.3 %; LYMPH ABS # 1.05 K/uL (1.2-3.4); MEAN CELL VOLUME 83.7 fL (80-100); MEAN CORPUSCULAR HEMOGLOBIN 27.2 pg (25-34); MEAN PLATELET VOLUME 9.3 fL (7.4-10.4); NEUT % 83.3 %; PLATELET COUNT 217 K/uL (130-400); RED BLOOD COUNT 4.67 M/uL (4.7-6.1); WHITE BLOOD COUNT 16.62 K/uL (4.8-10.8)
[2017-04-25] MEDS ORDERED: HEPARIN IV BOLUS 6,000 UNIT in SYRINGE 0 ML IV SCH (12:00)
[2017-04-25 12:01] LABS: COMPLETE YES; MEAN CORPUSCULAR HGB CONC 32.5 g/dl (32-36)
[2017-04-25 12:07] LABS: INR 1.1 (0.9-1.1); PROTHROMBIN TIME (PATIENT) 11.6 SECONDS (9.0-12.0)
[2017-04-25] MEDS: HEPARIN 25,000 UNIT/500ML D5W 500 ML IV PRN (12:24)
--- NOTE | 2017-04-25 13:17 | CARDIOLOGY CONSULTATION REPORT ---
DATE OF CONSULTATION: 04/25/2017 DATE OF CONSULTATION: 04/25/2017 REASON FOR CONSULTATION: Chest pain with radiation to the anterior neck in a patient with known CAD s/p multivessel drug eluting stents. HISTORY OF PRESENT ILLNESS: Mr. Joseph is a very pleasant 67-year-old white male with a history of long-standing Hypertension, Dyslipidemia, Insulin Requiring Type 2 Diabetes Mellitus, Chronic Kidney Disease, and CAD s/p multivessel stenting 2014 who presented acutely to [facility] Emergency Room with an acute gallstone pancreatitis which resulted in mid epigastric pain, nausea, vomiting, and poor p.o. intake. As a result, the patient was unable to keep his medications down for 2-3 days prior to admission. The patient was admitted to the medical floor for IV fluids and further evaluation and treatment of his acute gallstone pancreatitis. His medications were held (including his aspirin, beta dario, statin, and angiotensin receptor dario). As a result of his dehydration, poor p.o. intake, held medications, and the fact that he was acutely ill he has been significantly hypertensive throughout this hospitalization with systolic blood pressures ranging between 162 and 199 mmHg. Earlier today at approximately 0400 the patient developed anterior chest pain which radiated to his anterior neck, but this was without associated diaphoresis or dyspnea. Nonetheless the discomfort was reminiscent of his prior angina pectoris. He was given IV morphine which did not change his pain, and subsequently received a dose of sublingual nitroglycerin which did relieve his pain. The patient is currently being seen in room 378 bed 2, and he is symptom free. He denies any further angina pectoris, anterior chest pain, or any anterior neck/throat pain. He further denies any nausea, vomiting, diaphoresis or dyspnea. As a matter of fact his mid epigastric pain associated with pancreatitis has improved as well. The patient further denies any orthopnea, PND, palpitations, syncope, or near syncope. He has not had any cardiac symptoms leading to his hospitalization. The patient's cardiac history dates back to the summer of 2014. He developed exertional angina pectoris throughout the summer, but did not seek any attention until he developed unstable angina in March 2015. He subsequently underwent cardiac catheterization at [facility] in [place], [place] with the following findings: 1. LMCA -- Discrete 10-20% ostial stenosis. 2. LAD -- 90% Proximal stenosis, mild diffuse disease of the mid vessel, and 90% stenosis in the apical segment. 3. D1 -- 80% to 90% Proximal stenosis. 4. LCX -- 80% Diffuse mid vessel stenosis. 5. OM branch -- 90% Proximal stenosis 6. RCA -- Dominant vessel, luminal irregularities proximally followed by a 70% hazy mid vessel stenosis, 30% to 40% distal stenosis proximal to the bifurcation. 7. PDA -- Mild proximal disease and moderate mid vessel stenosis. 8. Percutaneous Coronary Intervention: Xience Alpine 2.5 x 18 mm drug eluting stent deployed in proximal LAD. - No complications. The patient underwent a repeat Cardiac Catheterization and staged PCI for his remaining disease a few days later. His PCI's included: - Deployment of drug eluting stent in mid LCX. - ? PTCA versus stent of OM1. - Drug eluting stent deployed in mid RCA. - No complications. The patient has residual high grade diagonal and high grade apical LAD stenosis. MEDICATIONS: 1. Lantus insulin 10 units subQ. 2. Cipro 400 mg IV q. 12 hour. 3. Carvedilol 6.25 mg b.i.d. (restarted this morning at 0526). 4. NovoLog sliding scale insulin. 5. Albuterol HFA 1 puff p.o. q. 6 hours p.r.n. for shortness of breath or wheezing. 6. Normal saline solution at 150 mL per hour. 7. Sublingual nitroglycerin as needed. 8. Hydralazine 10 mg IV q. 6 hours p.r.n. for systolic blood pressure greater than 180. 9. Zofran 4 mg IV q. 6 hours p.r.n. for nausea. 10. Morphine sulfate 2-4 mg IV q. 4 hours p.r.n. for pain. 11. Dilaudid 0.5 mg IV q. 4 hours p.r.n. for severe pain. ALLERGIES: No known drug allergies. PAST MEDICAL HISTORY: 1. CAD status post multivessel stenting 2014 as described above. 2. Residual distal and branch vessel stenosis which were not intervened upon. 3. History of unstable angina March 2015. 4. Currently with acute gallstone pancreatitis. 5. Insulin requiring type 2 diabetes mellitus. 6. Long-standing hypertension. 7. Dyslipidemia. 8. Stage III chronic kidney disease. 9. COPD/asthma. 10. History of anemia. 11. Diabetic nephropathy. 12. Diabetic retinopathy. 13. History of inguinal hernia. 14. History of microscopic hematuria. 15. Proteinuria. 16. History of vitamin D deficiency. 17. History of hyperkalemia. 18. Questionable history of stroke. 19. History of inguinal hernia repair. 20. History of sinus surgery. FAMILY HISTORY: Significant for CAD and diabetes mellitus, also for hypertension. PHYSICAL EXAMINATION: VITAL SIGNS: Temperature 36.8?C, pulse 80 and regular, respiration rate 18 and unlabored, blood pressure is 173/79. SPO2 is 95% on room air. GENERAL: The patient is in no acute distress. HEAD, EYES, EARS, NOSE, AND THROAT: Head is atraumatic, normocephalic. EOM intact. Sclera anicteric. Faces symmetric. No perioral cyanosis. Mucous membranes moist. NECK: Without thyromegaly, adenopathy or JVD. Carotid upstrokes +2 bilaterally without bruits. CHEST AND LUNGS: Are clear to auscultation throughout all lung cee, no wheezes, rales, or rhonchi. CARDIOVASCULAR SYSTEM: S1 and S2 are regular without obvious murmur, gallops, or rub. PMI is nondisplaced. No lifts, heaves, or thrills. ABDOMINAL EXAMINATION: Bowel sounds are present, abdomen appears mildly distended. I did not deeply palpate his abdomen due to his current pancreatitis. EXTREMITIES: Are without clubbing, cyanosis or edema. Intact radial and posterior tibial pulses bilaterally. NEUROLOGIC EXAMINATION: Patient is awake, alert, and oriented. Pleasant and cooperative. Answers questions appropriately. Speech is clear. Normal movement in all 4 extremities. LABORATORY DATA: Random glucose 279 mg/dL. Troponin I 0.024, and 0.026 ng/mL. Sodium is 139 mmol/L, potassium 5.0 mmol/L, BUN 43 mg/dL, creatinine 2.16 mg/dL. Lipase markedly elevated at 37,995 units/L. EKG on admission shows normal sinus rhythm at rate of 69 beats per minute, nonspecific ST T-wave abnormalities. Repeat EKG this morning at 0805 shows a sinus rhythm at the rate of 89 beats per minute with nonspecific ST T-wave abnormalities. No significant change when compared to tracing in 04/24/2017. ASSESSMENT: 1. Anterior chest pain radiating to anterior neck consistent with Angina Pectoris. 2. History of coronary artery disease status post multivessel drug eluting stents including proximal LAD, LCX, OM, and RCA. 3. Residual high grade apical left anterior descending stenosis and high grade D1 stenosis. 4. Currently with acute gallstone pancreatitis with poor p.o. intake, nausea, vomiting, and inability to take his normal medications over the past 2-3 days. 5. Uncontrolled hypertension, probably secondary to acute illness and inability to take his normal antihypertensive/cardiac medications. 6. Insulin requiring type 2 diabetes mellitus. 7. Stage III chronic kidney disease. 8. Dyslipidemia. 9. Diagnoses as mentioned above. PLAN: 1. Discussed with Dr. Adams. 2. The patient most likely is experiencing angina pectoris secondary to demand ischemia related to absence of cardiac medications with a rebound hypertension -- which increases myocardial oxygen consumption in the presence of residual distal vessel and branch vessel stenoses. However we need to keep in mind the possibility of in stent pathology as he has missed approximately 3-4 days of aspirin. 3. Agree with transfer to telemetry. 4. Continue Coreg 6.25 mg p.o. b.i.d. 5. Add Lopressor 5 mg IV q. 4 hours around the clock for additional beta blockade. 6. Resume Aspirin 325 mg daily. This patient should never miss a dose of aspirin in his lifetime. 7. Heparin drip in case this is an in-stent thrombus trying to form. 8. Agree with serial EKGs and serial cardiac enzymes. 9. Resume Atorvastatin 80 mg daily. 10. Topical Nitrates to promote flow through those residual stenoses. 11. Continue telemetry for the time being. 12. If cardiac enzymes remain negative, may discontinue heparin after 24 hours. 13. Will continue to follow closely. [facility]
[2017-04-25] MEDS: HYDROmorphone INJ 0.5 MG/0.5 ML SYR IV PRN ×3 (15:41→23:58)
[2017-04-25] MEDS: CIPROFLOXACIN / D5W 400 MG in PREMIXED IN D5W 200 ML IV SCH (15:41)
--- NOTE | 2017-04-25 16:19 | GASTROINTESTINAL CONSULTATION ---
DATE OF CONSULTATION: 04/25/2017 DATE OF CONSULTATION: 04/25/2017 REASON FOR EVALUATION: Acute pancreatitis. HISTORY OF PRESENT ILLNESS: The patient is a 67-year-old male who presented to the hospital today with acute onset epigastric pain associated with nausea and vomiting yesterday. Pain got progressively worse during the course of the day and evening, was rated as a 10/10 and he presented to the Emergency Room early this morning where he was noted to have a lipase over 30,000. Interestingly, his ultrasound showed normal bile duct and pancreatic duct. There was no obvious stone in the bile duct, but he did have some small stones in his gallbladder. His liver tests were entirely normal. He does drink alcohol but not very commonly, his last alcohol consumption was about 5 days ago. PAST MEDICAL HISTORY: Remarkable for hypertension, hyperlipidemia, diabetes, chronic kidney disease. He has had coronary disease and has had 4 stents placed 2 years ago. FAMILY HISTORY: Remarkable for an CO. SOCIAL HISTORY: The patient is . 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 Drinks alcohol socially, but none in the last 5 days. Does not smoke. MEDICATIONS: Aspirin, Lipitor, Coreg, vitamin D, Lasix, NovoLog, Cozaar, Ventolin, Nitrostat. ALLERGIES: None. REVIEW OF SYSTEMS: Positive for epigastric pain. PHYSICAL EXAMINATION: GENERAL: The patient appears in no acute distress. VITAL SIGNS: Blood pressure is 180/90, pulse 70. Sclerae are nonicteric. LUNGS: Showed decreased breath sounds. ABDOMEN: Shows some tenderness in the epigastric area. IMPRESSION: The patient has gallstones in his gallbladder, but normal bile duct and caliber without any obvious stones and his liver tests are normal. It is possible he may have a small stone stuck in his bile duct. I plan on scheduling an MRCP. I discussed with the radiologist that there is no contrast given during the MRCP that could potentially compromise his kidney function. Once this test is completed, then further suggestions will be made based on those results.
[2017-04-25 16:31] LABS: CKMB/CK RATIO 2.6 (0-3.0)
[2017-04-25 19:35] LABS: PARTIAL THROMBOPLASTIN RATIO 4.4
[2017-04-25] MEDS ORDERED: ATORVASTATIN 40 MG TAB PO SCH (21:00)
[2017-04-25] MEDS ORDERED: INSULIN GLARGINE SOLOSTAR 100 UNITS/ML 3 ML PEN SC SCH (21:00)
[2017-04-25] MEDS: INSULIN GLARGINE SOLOSTAR 100 UNITS/ML 3 ML PEN SC SCH (21:36)
--- NOTE | 2017-04-25 22:23 | DIAGNOSTIC IMAGING REPORT ---
MRCP CLINICAL HISTORY: Pancreatitis. Nausea and vomiting. Abdominal bloating. COMPARISON STUDY: Abdominal ultrasound dated 04/25/2017. TECHNIQUE: Abdominal MRCP is performed using various T2-weighted sequences in the axial and coronal planes. IV contrast was not administered for this examination. 3-D reformats are created and assessed. FINDINGS: The gallbladder is mildly distended and filled with numerous gallstones. There is no gallbladder wall thickening or pericholecystic fluid. There is no convincing MRI evidence of cholecystitis. The common bile duct is normal in appearance and measures up to 7 mm. No intraluminal filling defects identified to suggest choledocholithiasis. There is no intrahepatic biliary ductal dilatation. The main pancreatic duct is prominent measuring up to 3 mm. There is evidence of pancreas divisum. The dorsal duct drains into the minor papillae, best seen on coronal high-resolution image #88. The ventral duct is diminutive and its insertion is best seen on coronal image #92. The liver, spleen, adrenal glands are grossly unremarkable. The kidneys are normal in size and without hydronephrosis. Trace nonspecific perinephric fluid is identified. There is mild stranding and fluid around the pancreatic head, likely related to the reported clinical history of pancreatitis. The pancreatic parenchyma appears homogeneous. No organized peripancreatic collection is identified. There is no evidence of bowel obstruction. The bony structures are grossly normal as imaged. IMPRESSION: 1. Cholelithiasis without MR evidence of acute cholecystitis. 2. Findings are consistent with mild acute pancreatitis involving the pancreatic head. No perihepatic fluid collection is seen. The gland appears homogeneous. 3. There is no intra or extrahepatic biliary ductal dilatation. No evidence of choledocholithiasis is seen. 4. There is pancreas divisum. 5. Additional findings as above. Electronically signed by: Rebel Mcleod M.D. 04/25/2017 10:21 PM Dictated Date/Time: 04/25/2017 9:44 PM
[2017-04-26] VITALS (17 sets, daily range): BP systolic 137–178; BP diastolic 66–98; PULSE 73–120; TEMP 36.5–37.2; O2SAT 94–96
[2017-04-26] MEDS: INSULIN ASPART 100 UNITS/ML 3 ML PEN SC SCH ×4 (00:01→18:54)
[2017-04-26 00:35] LABS: CKMB/CK RATIO 2.6 (0-3.0)
[2017-04-26] MEDS: METOPROLOL TARTRATE 1 MG/ML VIAL IV. SCH ×5 (03:03→19:43)
[2017-04-26] MEDS: CIPROFLOXACIN / D5W 400 MG in PREMIXED IN D5W 200 ML IV SCH ×2 (03:07→15:42)
[2017-04-26 03:18] LABS: PARTIAL THROMBOPLASTIN RATIO 2.5
[2017-04-26] MEDS ORDERED: DILTIAZEM BOLUS / DRIP IV STA (03:40)
[2017-04-26] MEDS ORDERED: DILTIAZEM HCL 5 MG/ML 5 ML VIAL IV STA (04:06)
[2017-04-26] MEDS ORDERED: DILTIAZEM HCL 5 MG/ML 5 ML VIAL ONE (04:07)
[2017-04-26] MEDS: DILTIAZEM HCL INJ 125 MG in DEXTROSE 5% 100ML IV PRN ×2 (04:14→15:41)
[2017-04-26] MEDS: NITROGLYCERIN OINT 2% 1GM PACKET EXT SCH ×4 (06:17→23:59)
[2017-04-26 07:04] LABS: BASO % 0.1 %; BASO ABS # 0.01 K/uL (0-0.2); COMPLETE YES; EOS % 0.6 %; HEMATOCRIT 35.5 % (42-52); IG% 0.3 %; LYMPH % 6.1 %; LYMPH ABS # 0.97 K/uL (1.2-3.4); MEAN CELL VOLUME 84.3 fL (80-100); MEAN CORPUSCULAR HEMOGLOBIN 27.6 pg (25-34); MEAN CORPUSCULAR HGB CONC 32.7 g/dl (32-36); MEAN PLATELET VOLUME 9.7 fL (7.4-10.4); MONO % 11.1 %; NEUT % 81.8 %; PLATELET COUNT 192 K/uL (130-400); RED BLOOD COUNT 4.21 M/uL (4.7-6.1); WHITE BLOOD COUNT 15.78 K/uL (4.8-10.8)
[2017-04-26 07:22] LABS: PARTIAL THROMBOPLASTIN RATIO 2.4
[2017-04-26 07:33] LABS: BUN/CREATININE RATIO 18.4 (10-20); CALCIUM 8.6 mg/dl (8.5-10.1); CREATININE 1.59 mg/dl (0.60-1.40); POTASSIUM 4.3 mmol/L (3.5-5.1)
[2017-04-26] MEDS: SODIUM CHLORIDE 0.9% 1000ML 1,000 ML IV SCH ×3 (08:10→19:44)
[2017-04-26] MEDS: CARVEDILOL 6.25 MG TAB PO SCH ×2 (08:15→20:25)
[2017-04-26] MEDS: ASPIRIN 325 MG ECTAB PO SCH (08:16)
[2017-04-26] MEDS: ATORVASTATIN 40 MG TAB PO SCH (08:16)
[2017-04-26] MEDS: HEPARIN 25,000 UNIT/500ML D5W 500 ML IV PRN (09:32)
--- NOTE | 2017-04-26 10:46 | Cardiology Follow-Up ---
Subjective Date of Service: Apr 26, 2017. Pt evaluation today including: conversation w/ patient, physical exam, chart review, lab review, review of studies, review of inpatient medication list, conversation w/ attending History of Present Illness The patient developed atrial fibrillation with RVR early this morning around 2: 40 am. He was started on a Diltiazem drip with control of his heart rate. He is currently in atrial flutter with variable AV block. The patient is currently being seen in his room 242 bed 1. He reports that he could feel the onset of his atrial fibrillation early this morning. He noted a fast and irregular heart beat. He also noted a discomfort in his chest, which was different than the angina he experienced earlier in this admission. His symptoms lasted about 2 hours in duration before resolving. He is currently resting comfortably with no chest pain or palpitations. He denies shortness of breath, orthopnea, PND, or edema. He denies lightheadedness or presyncope. He denies abnormal bleeding or cerebrovascular symptoms. Social History Smoking Status: Unknown if Ever Smoked History of Alcohol Use: Yes (vodka, beer) Objective Vital Signs Past 12 Hours Date Time Temp Pulse Resp B/P (MAP) Pulse Ox O2 Delivery O2 Flow Rate FiO2 04/26/17 08:14 107 164/82 04/26/17 08:00 95 Room Air 04/26/17 07:24 37.2 73 20 151/89 (109) 95 Room Air 04/26/17 06:04 87 153/87 (109) 04/26/17 05:53 89 154/86 (108) 04/26/17 05:38 87 153/87 (109) 04/26/17 05:23 84 161/84 (109) 04/26/17 05:08 106 167/98 (121) 04/26/17 04:54 106 178/84 (115) 04/26/17 04:38 120 137/92 (107) 04/26/17 04:30 36.6 111 18 94 Room Air 04/26/17 04:15 83 159/71 (100) 04/26/17 04:00 94 Room Air 04/26/17 03:40 105 137/66 (89) 04/26/17 03:03 142 04/25/17 23:59 96 Room Air 04/25/17 23:57 78 04/25/17 23:31 36.9 85 16 177/72 (107) 96 Room Air Last Recorded Weight-Kilograms: 73.600 Physical Exam Constitutional: Alert, oriented, in no acute distress HEENT: Head is atraumatic and normocephalic. EOMs intact. Sclera anicteric. Face is symmetric. No perioral cyanosis. Mucous membranes moist. Neck: Supple, no JVD, no bruits Pulmonary: Normal respiratory effort, clear to auscultation bilaterally Cardiac: Irregular, normal S1 and S2, no gallops, no rubs, no obvious murmur Extremities: No edema. No clubbing or cyanosis. Pulses intact Abdomen: Normal bowel sounds, soft, non-tender, no abdominal mass palpated Skin: Normal skin color, turgor, and pigmentation, no rash, no skin lesions Neurological: Oriented to person, place, and time Data Laboratory Results: Last 24 Hours Test 04/25/17 11:36 04/25/17 11:50 04/25/17 12:46 04/25/17 15:39 Bedside Glucose 231 mg/dl 193 mg/dl White Blood Count 16.62 K/uL Red Blood Count 4.67 M/uL Hemoglobin 12.7 g/dL Hematocrit 39.1 % Mean Corpuscular Volume 83.7 fL Mean Corpuscular Hemoglobin 27.2 pg Mean Corpuscular Hemoglobin Concent 32.5 g/dl Platelet Count 217 K/uL Mean Platelet Volume 9.3 fL Neutrophils (%) (Auto) 83.3 % Lymphocytes (%) (Auto) 6.3 % Monocytes (%) (Auto) 10.0 % Eosinophils (%) (Auto) 0.1 % Basophils (%) (Auto) 0.1 % Neutrophils # (Auto) 13.82 K/uL Lymphocytes # (Auto) 1.05 K/uL Monocytes # (Auto) 1.67 K/uL Eosinophils # (Auto) 0.02 K/uL Basophils # (Auto) 0.02 K/uL RDW Standard Deviation 41.2 fL RDW Coefficient of Variation 13.7 % Immature Granulocyte % (Auto) 0.2 % Immature Granulocyte # (Auto) 0.04 K/uL Prothrombin Time 11.6 SECONDS Prothromb Time International Ratio 1.1 Activated Partial Thromboplast Time 25.4 SECONDS Partial Thromboplastin Ratio 1.0 Total Creatine Kinase 133 U/L Creatine Kinase MB 3.5 ng/ml Creatine Kinase MB Ratio 2.6 Troponin I 0.237 ng/ml Test 04/25/17 18:14 04/25/17 18:59 04/25/17 20:58 04/25/17 23:43 Bedside Glucose 232 mg/dl 195 mg/dl Activated Partial Thromboplast Time 114.1 SECONDS Partial Thromboplastin Ratio 4.4 Total Creatine Kinase 121 U/L Creatine Kinase MB 3.1 ng/ml Creatine Kinase MB Ratio 2.6 Troponin I 0.260 ng/ml Test 04/25/17 23:45 04/26/17 02:50 04/26/17 05:59 04/26/17 06:49 Bedside Glucose 173 mg/dl 178 mg/dl Activated Partial Thromboplast Time 65.1 SECONDS 63.3 SECONDS Partial Thromboplastin Ratio 2.5 2.4 White Blood Count 15.78 K/uL Red Blood Count 4.21 M/uL Hemoglobin 11.6 g/dL Hematocrit 35.5 % Mean Corpuscular Volume 84.3 fL Mean Corpuscular Hemoglobin 27.6 pg Mean Corpuscular Hemoglobin Concent 32.7 g/dl Platelet Count 192 K/uL Mean Platelet Volume 9.7 fL Neutrophils (%) (Auto) 81.8 % Lymphocytes (%) (Auto) 6.1 % Monocytes (%) (Auto) 11.1 % Eosinophils (%) (Auto) 0.6 % Basophils (%) (Auto) 0.1 % Neutrophils # (Auto) 12.91 K/uL Lymphocytes # (Auto) 0.97 K/uL Monocytes # (Auto) 1.75 K/uL Eosinophils # (Auto) 0.09 K/uL Basophils # (Auto) 0.01 K/uL RDW Standard Deviation 41.7 fL RDW Coefficient of Variation 13.7 % Immature Granulocyte % (Auto) 0.3 % Immature Granulocyte # (Auto) 0.05 K/uL Sodium Level 138 mmol/L Potassium Level 4.3 mmol/L Chloride Level 110 mmol/L Carbon Dioxide Level 20 mmol/L Anion Gap 8.0 mmol/L Blood Urea Nitrogen 29 mg/dl Creatinine 1.59 mg/dl Est Creatinine Clear Calc Drug Dose 45.7 ml/min Estimated GFR () 51.7 Estimated GFR (Non- 44.6 BUN/Creatinine Ratio 18.4 Random Glucose 186 mg/dl Calcium Level 8.6 mg/dl Troponin I 0.202 ng/ml EKG 04/26/17 @ 3:20 am: Atrial fibrillation with a ventricular response rate of [address] and T wave abnormality. EKG 04/26/17 @ 7:00 am: Atrial flutter with variable AV block at [address] and T wave abnormality. Telemetry reviewed: He developed atrial fibrillation around 2:40 am. He subsequently went into atrial flutter. His heart rate is currently well controlled in the 80s. Assessment and Plan ASSESSMENT: 1. Atrial fibrillation/flutter - New onset this admission 2. Coronary artery disease status post multivessel drug eluting stents including proximal LAD, LCX, OM, and RCA. 3. Residual high grade apical left anterior descending stenosis and high grade D1 stenosis. 4. Acute gallstone pancreatitis with poor p.o. intake, nausea, vomiting, and inability to take his normal medications for 2-3 days prior to admission. 5. Hypertension 6. Insulin requiring type 2 diabetes mellitus. 7. Stage III chronic kidney disease. 8. Dyslipidemia. 9. Diagnoses as mentioned above. PLAN: 1. Discussed with Dr. Adams. 2. Initiate Amiodarone drip to hopefully convert him to sinus rhythm. 3. Discontinue Diltiazem drip. 4. Continue Coreg 6.25 mg p.o. b.i.d. 5. Continue Lopressor 5 mg IV q. 4 hours. 6. Continue Aspirin 325 mg daily. 7. Continue Heparin drip given mildly elevated troponin as well as his atrial arrhythmia. He will ultimately require long-term anticoagulation therapy, preferably with a novel anticoagulant, given his atrial fibrillation/flutter. 8. Continue Atorvastatin 80 mg daily. 9. Continue to monitor on telemetry. 10. EKG PRN for chest pain. 11. Continue topical nitrates. 12. Will continue to follow closely.
[2017-04-26] MEDS ORDERED: AMIODARONE IV BOLUS / DRIP IV STA (17:09)
[2017-04-26] MEDS ORDERED: DILTIAZEM HCL INJ 125 MG in DEXTROSE 5% 100ML 100 ML IV PRN (17:15)
--- NOTE | 2017-04-26 17:19 | Family Medicine Progress Note ---
Progress Note Date of Service Apr 26, 2017. Subjective Pt evaluation today including: conversation w/ patient, physical exam, chart review, lab review, review of studies, conversation w/ cardiology clinical consultant, review of inpatient medication list Patient feeling well currently. Overnight at around 2:30 in the morning he had just woken up to go to the bathroom, when he started feeling that his heart is skipping beats. Correlation with telemetry confirmed this as a time he went into atrial fibrillation/atrial flutter. He currently denies any symptoms of lightheadedness, chest pain or dyspnea. His abdominal tenderness has improved significantly although he still feels slightly bloated. He remains nothing by mouth currently. He has not had a bowel movement yet but denies feeling constipated. He is voiding without issue. All Other Systems: Reviewed and Negative Objective Vital Signs Date Time Temp Pulse Resp B/P (MAP) Pulse Ox O2 Delivery O2 Flow Rate FiO2 04/26/17 16:00 Room Air 04/26/17 15:43 79 131/69 04/26/17 15:38 36.8 83 18 159/75 (103) 96 Room Air 04/26/17 12:33 79 131/69 04/26/17 12:00 94 Room Air 04/26/17 11:37 36.5 81 20 139/72 (94) 94 Room Air 04/26/17 08:14 107 164/82 04/26/17 08:00 95 Room Air 04/26/17 07:24 37.2 73 20 151/89 (109) 95 Room Air 04/26/17 06:04 87 153/87 (109) 04/26/17 05:53 89 154/86 (108) 04/26/17 05:38 87 153/87 (109) 04/26/17 05:23 84 161/84 (109) 04/26/17 05:08 106 167/98 (121) 04/26/17 04:54 106 178/84 (115) 04/26/17 04:38 120 137/92 (107) 04/26/17 04:30 36.6 111 18 94 Room Air 04/26/17 04:15 83 159/71 (100) 04/26/17 04:00 94 Room Air 04/26/17 03:40 105 137/66 (89) 04/26/17 03:03 142 04/25/17 23:59 96 Room Air 04/25/17 23:57 78 04/25/17 23:31 36.9 85 16 177/72 (107) 96 Room Air 04/25/17 20:08 37.1 86 20 190/76 (114) 97 Room Air 04/25/17 20:04 83 190/76 04/25/17 20:00 97 Room Air Physical Exam General Appearance: WD/WN, no apparent distress Eyes: normal inspection ENT: hearing grossly normal Neck: supple, no adenopathy Respiratory/Chest: lungs clear, normal breath sounds, no respiratory distress, no accessory muscle use Cardiovascular: regular rate, rhythm, no murmur, + tachycardia Abdomen: normal bowel sounds, soft, + tenderness (minimal epigastric tenderness ) Extremities: no pedal edema, no calf tenderness Neurologic/Psychiatric: alert, normal mood/affect, oriented x 3 Skin: normal color, warm/dry, no rash Laboratory Results Results Past 24 Hours Test 04/25/17 18:14 04/25/17 18:59 04/25/17 20:58 04/25/17 23:43 Range/Units Bedside Glucose 232 195 70-99 mg/dl Activated Partial Thromboplast Time 114.1 21.0-31.0 SECONDS Partial Thromboplastin Ratio 4.4 Total Creatine Kinase 121 39-308 U/L Creatine Kinase MB 3.1 0.5-3.6 ng/ml Creatine Kinase MB Ratio 2.6 0-3.0 Troponin I 0.260 0-0.045 ng/ml Test 04/25/17 23:45 04/26/17 02:50 04/26/17 05:59 04/26/17 06:49 Range/Units Bedside Glucose 173 178 70-99 mg/dl Activated Partial Thromboplast Time 65.1 63.3 21.0-31.0 SECONDS Partial Thromboplastin Ratio 2.5 2.4 White Blood Count 15.78 4.8-10.8 K/uL Red Blood Count 4.21 4.7-6.1 M/uL Hemoglobin 11.6 14.0-18.0 g/dL Hematocrit 35.5 42-52 % Mean Corpuscular Volume 84.3 80-100 fL Mean Corpuscular Hemoglobin 27.6 25-34 pg Mean Corpuscular Hemoglobin Concent 32.7 32-36 g/dl Platelet Count 192 130-400 K/uL Mean Platelet Volume 9.7 7.4-10.4 fL Neutrophils (%) (Auto) 81.8 % Lymphocytes (%) (Auto) 6.1 % Monocytes (%) (Auto) 11.1 % Eosinophils (%) (Auto) 0.6 % Basophils (%) (Auto) 0.1 % Neutrophils # (Auto) 12.91 1.4-6.5 K/uL Lymphocytes # (Auto) 0.97 1.2-3.4 K/uL Monocytes # (Auto) 1.75 0.11-0.59 K/uL Eosinophils # (Auto) 0.09 0-0.5 K/uL Basophils # (Auto) 0.01 0-0.2 K/uL RDW Standard Deviation 41.7 36.4-46.3 fL RDW Coefficient of Variation 13.7 11.5-14.5 % Immature Granulocyte % (Auto) 0.3 % Immature Granulocyte # (Auto) 0.05 0.00-0.02 K/uL Sodium Level 138 136-145 mmol/L Potassium Level 4.3 3.5-5.1 mmol/L Chloride Level 110 98-107 mmol/L Carbon Dioxide Level 20 21-32 mmol/L Anion Gap 8.0 3-11 mmol/L Blood Urea Nitrogen 29 7-18 mg/dl Creatinine 1.59 0.60-1.40 mg/dl Est Creatinine Clear Calc Drug Dose 45.7 ml/min Estimated GFR () 51.7 Estimated GFR (Non- 44.6 BUN/Creatinine Ratio 18.4 10-20 Random Glucose 186 70-99 mg/dl Calcium Level 8.6 8.5-10.1 mg/dl Troponin I 0.202 0-0.045 ng/ml Lipase 5735 73-393 U/L Test 04/26/17 10:58 Range/Units Bedside Glucose 175 70-99 mg/dl Assessment and Plan 67 yo M with pMHx of HTN, DMII, CKD and IA s/p MELISSA x 4 in 2014 admitted with gallstone pancreatitis confirmed by elevated lipase 90147 and evidence of gallstones on U/S. Gallstone pancreatitis - U/S showed Cholelithiasis but no gallbladder wall thickening or pericholecystic fluid and no biliary ductal dilatation. MRCP confirmed cholelithiasis without MR evidence of acute cholecystitis, findings consistent with mild acute pancreatitis involving the pancreatic head but no perihepatic fluid collection, and no intra or extrahepatic biliary ductal dilatation. GI consulted - recs appreciated - NPO except ice chips, with IVF NSS @ 100cc/h - IV Cipro as patient had obstruction and leukocytosis - Pain control with morphine and Dilaudid - Gen surg consulted for assessment of candidacy for cholecystectomy Chest pain in setting of CAD with h/o of IA and stent placement - Cardio consulted- recs appreciated. Elevated trop likely is secondary to demand ischemia related to absence of cardiac medications with a rebound hypertension. Will keep in mind the possibility of in stent pathology as he has missed approximately 3-4 days of aspirin. - Coreg 6.25 mg BID, IV Lopressor 5 mg q4h. - Aspirin 325 mg daily (This patient should never miss a dose of aspirin in his lifetime.) - Atorvastatin 80 mg daily. - Topical Nitrates - Heparin drip, may discontinue heparin after 24 hours negative cardiac enzymes - Serial EKGs and serial cardiac enzymes. New atrial flutter - As per cardiology, plans to initiate Amiodarone drip to hopefully convert him to sinus rhythm - Discontinue Diltiazem drip once HR <60, as per Dr. Chan - Continue beta blockade as above - Anticoagulated via Heparin drip currently, but will require exterminator termite PO anticoagulation once this is discontinued HTN - Continue Coreg 6.25 mg BID, IV Lopressor 5 mg q4h. Lasix 20 mg daily and Losartan 100 mg held - Hydralazine 10 mg for systolic BP > 180 DMII - Lantus 20 units HS; does take 24 units of toujeo HS - Insulin ISS with BSG AC HS CKD III stable - Trend BMP, continue to monitor creatinine DVT Prophylaxis - SCD in case procedure req - Heparin drip for now Continued [facility] stay due to: multiple IV medications needed Discharge planning: home Resident Tracking Resident Involvement: Resident Care Provided Care Provided: Adult Hospital Medicine Reviewed: Pt Seen/Exam by Me History went in a fib last night. started on cardizem drip. consulted cardio Constitutional: denies: fever Respiratory: negative: short of breath Cardiovascular: denies chest pain General Appearance: no apparent distress Respiratory: lungs clear, no respiratory distress Cardiovascular: irregularly irregular Gastrointestinal: normal bowel sounds, non tender, soft Neurologic/Psychiatric: alert, oriented x 3 Skin Characteristics: warm/dry Assessment/Plan Resident Physician Supervision Note: I independently interviewed and examined the patient and verified the anderson history and physical, reviewed labs and image studies, discussed the case with the resident Dr. Mccullough and agree with the findings and care plan.
[2017-04-26] MEDS ORDERED: AMIODARONE / D5W 100 ML IV SCH (17:30)
[2017-04-26] MEDS ORDERED: AMIODARONE / D5W 200 ML IV SCH (17:40)
[2017-04-26] MEDS: INSULIN GLARGINE SOLOSTAR 100 UNITS/ML 3 ML PEN SC SCH (20:26)
[2017-04-27] VITALS (8 sets, daily range): BP systolic 144–203; BP diastolic 67–95; PULSE 66–83; TEMP 36.7–37.1; O2SAT 92–97
[2017-04-27] MEDS: INSULIN ASPART 100 UNITS/ML 3 ML PEN SC SCH ×4 (00:01→19:58)
[2017-04-27] MEDS: AMIODARONE / D5W 200 ML IV SCH ×2 (01:01→11:29)
[2017-04-27] MEDS: METOPROLOL TARTRATE 1 MG/ML VIAL IV. SCH ×6 (03:13→19:51)
[2017-04-27] MEDS: CIPROFLOXACIN / D5W 400 MG in PREMIXED IN D5W 200 ML IV SCH ×2 (03:13→16:21)
--- NOTE | 2017-04-27 05:46 | GASTROENTEROLOGY PROGRESS NOTE ---
DATE: 04/26/2017 HISTORY OF PRESENT ILLNESS: I spoke with the patient and his family this evening, chart was reviewed. The patient underwent MRCP which revealed no evidence for bile duct dilation, filling defects. There was evidence of pancreatic changes consistent with acute pancreatitis and there is evidence on imaging of pancreatic divisum which may be a source of the patient's pancreatitis, although this is his first attack at age 67. I did review the patient's risk factors. The patient does not consume even moderate amounts of alcohol and therefore this is less likely. Imaging studies had shown gallstones without gallbladder wall thickening or pericholecystic fluid and the MRCP revealed numerous stones. Common bile duct was 7 mm on MRCP and the main pancreatic duct is up to 3 mm with evidence of pancreatic divisum. The remainder was unremarkable except for mild stranding of fluid around the pancreatic head. Changes of chronic pancreatitis were not described. There were no fluid collections. There was no intrahepatic ductal dilation. The patient is feeling better today clinically with much less abdominal pain, nausea or vomiting. He remained on n.p.o. status. CURRENT MEDICATIONS: Includes amiodarone for acute onset of atrial fibrillation, although he does report that he has had this in the past. Diltiazem, aspirin, atorvastatin, insulin, Cipro, Lopressor, nitroglycerin, carvedilol, Zofran, morphine. ALLERGIES: He has no known drug allergies. REVIEW OF SYSTEMS: Otherwise noncontributory based on 13-point exam. PHYSICAL EXAMINATION: VITAL SIGNS: This evening, blood pressure 154/76, heart rate 78, respirations 18. GENERAL: The patient is awake, alert and oriented x3 and accompanied by his spouse. He is resting comfortably in bed. LUNGS: Clear to auscultation. HEART: Normal S1, S2. ABDOMEN: Soft, mildly tender in the epigastrium without rebound or guarding. There is no abdominal distention. There is no evidence for ascites or shifting dullness. EXTREMITIES: Without clubbing, cyanosis or edema. RECTAL: Deferred at this time. IMPRESSION: The patient with a history of acute onset of acute pancreatitis without prior history. A significant alcohol history is not reported by the patient. There are gallstones, but the biliary system does not appear to be dilated nor does it containing filling defects. There were no LFT abnormalities on admission. Lipase level is down from approximately 30,000 down to 3000 today showing positive trend. I made the following recommendations: At this point, the etiology is unclear and although a small stone or sludge may have been responsible for this acute attack, one would expect liver tests elevations if of gallstone origin. At some point, it may be reasonable to remove the gallbladder to remove this as the potential source. However, the findings of pancreatic divisum may raise a source for this patient attack, although it is curious that it represents his first attack at age 67. At the present time we would keep patient n.p.o., continue liquids controlling cardiac issues and blood sugar. At some point as an outpatient it may be reasonable to perform an EUS or repeat imaging to fully exclude any stones or sludge. Given that this is his first attacks of pancreatitis. ERCP may not be necessary at this time, although in the setting of pancreatic divisum, this may need further consideration. All questions answered. We will continue to follow. Thank you for allowing me to participate in this patient's care. GALA
[2017-04-27] MEDS: NITROGLYCERIN OINT 2% 1GM PACKET EXT SCH ×3 (06:14→17:35)
[2017-04-27 07:18] LABS: PARTIAL THROMBOPLASTIN RATIO 2.7
[2017-04-27] MEDS: ASPIRIN 325 MG ECTAB PO SCH (07:46)
[2017-04-27] MEDS: CARVEDILOL 6.25 MG TAB PO SCH ×2 (07:46→19:54)
[2017-04-27] MEDS: SODIUM CHLORIDE 0.9% 1000ML 1,000 ML IV SCH ×2 (07:46→14:13)
[2017-04-27] MEDS: ATORVASTATIN 40 MG TAB PO SCH (07:47)
[2017-04-27 07:55] LABS: HEMATOCRIT 32.1 % (42-52); MEAN CELL VOLUME 83.8 fL (80-100); MEAN CORPUSCULAR HEMOGLOBIN 27.7 pg (25-34); PLATELET COUNT 192 K/uL (130-400); RED BLOOD COUNT 3.83 M/uL (4.7-6.1); WHITE BLOOD COUNT 10.39 K/uL (4.8-10.8)
[2017-04-27 07:57] LABS: BUN/CREATININE RATIO 17.2 (10-20); CALCIUM 8.1 mg/dl (8.5-10.1); CREATININE 1.8 mg/dl (0.60-1.40); POTASSIUM 4.3 mmol/L (3.5-5.1)
--- NOTE | 2017-04-27 09:49 | CONSULTATION REPORT ---
DATE OF CONSULTATION: 04/27/2017 REASON FOR CONSULT: Pancreatitis. HISTORY OF PRESENT ILLNESS: The patient is a 67-year-old male who presented to the Emergency Department 3 days ago for a 1-day history of upper abdominal pain and nausea. His lipase was elevated. He was admitted for pancreatitis. This was his first episode of pancreatitis. He has vague history of some biliary colic. Since admission a few days ago, his pain has resolved. He is passing flatus. He also had some AFib with RVR and then atrial flutter with AV block. He is on amiodarone, diltiazem, and heparin drips. He has been seen by GI, who has addressed his pancreatic divisum. We were asked to see him for his pancreatitis along with cholelithiasis. PAST MEDICAL HISTORY: Hypertension, hyperlipidemia, type 2 diabetes, chronic kidney disease stage III, and coronary artery disease. PAST SURGICAL HISTORY: Cardiac stents in March of 2015 and a remote left inguinal hernia repair. SOCIAL HISTORY: Minimal alcohol use. Denies tobacco use. CURRENT MEDICATIONS: Home meds include aspirin, Lipitor, Coreg, Lasix, NovoLog, Cozaar, vitamin D, Glargine insulin, Nitrostat and Ventolin. Inpatient meds include amiodarone drip, diltiazem drip, aspirin 325 mg daily, Lipitor 80 mg daily, SoloSTAR pen 10 units at bedtime, Cipro 400 mg IV q. 12 hours, Lopressor 5 mg IV q. 4 hours, heparin drip, nitroglycerin 0.5 inches daily, Coreg 6.25 mg p.o. b.i.d., sliding scale NovoLog, albuterol 1 puff q. 6 hours as needed, Nitrostat 0.4 mg as needed, Zofran 4 mg as needed, morphine 2-4 mg as needed, and Dilaudid 0.5 mg as needed. ALLERGIES: NKDA. REVIEW OF SYSTEMS: GENERAL: No weight changes. Appetite has been normal. CARDIAC: As per HPI. OBJECTIVE: GENERAL: He appears in no acute distress. VITAL SIGNS: Temperature 36.9, pulse 83, respirations 20, blood pressure 170/91, and pulse ox 92% on room air. HEENT: Unremarkable. ABDOMEN: Soft, nontender, and nondistended. No inguinal hernias. Has a left inguinal scar. LABORATORY DATA: White count is 10,000, down from 14,000. Hemoglobin has fallen from 14 to 10 with hematocrit of 32 likely dilutional. Sodium 138, potassium 4.3, BUN 31, and creatinine 1.8. Lipase is 1800 down from 38,000 at admission. IMAGING STUDIES: Ultrasound showed cholelithiasis. No gallbladder wall thickening or pericholecystic fluid. MRCP again shows cholelithiasis. There was evidence of pancreatitis as well as pancreatic divisum. There was no biliary dilation. No evidence of choledocholithiasis. IMPRESSION: 1. Pancreatitis. 2. Cholelithiasis. 3. Pancreatic divisum. 4. New onset atrial fibrillation. PLAN: The patient was seen with Dr. Brown. Although he may be a candidate for eventual cholecystectomy, we do not have any plans for that in the near future. Once his cardiac issues and long-term anticoagulation have been addressed, we can see him back in the office in a few weeks to further develop a plan. GI is also planning additional outpatient followup, possibly EUS , ERCP or repeat imaging. Dr. Armenta will be covering the weekend if any new issues arise. GALA
--- NOTE | 2017-04-27 10:16 | CARDIOLOGY PROGRESS NOTE ---
DATE: 04/27/2017 SUBJECTIVE: Mr. Joseph is resting comfortably in bed without complaints of chest pain, dyspnea or palpitations. He converted to normal sinus rhythm at approximately 11:00 p.m. last evening. OBJECTIVE: VITAL SIGNS: Blood pressure 170/90 with a regular pulse of 80. Respiratory rate is 20. The patient is afebrile at 36.9 degrees Celsius. Saturation 92% on room air. NECK: Supple with full carotid upstrokes. No carotid bruits. Jugular venous pressure is flat at 90 degrees. There is no thyromegaly. CARDIOVASCULAR: Reveals a regular rhythm with normal S1 and S2. No S3, S4, or murmurs are noted. LUNGS: Clear without rales, rhonchi, or wheezes. ABDOMEN: Soft and nontender without bruits. EXTREMITIES: Reveal intact radial artery pulses bilaterally. There is no peripheral edema. DATA: CBC notes hemoglobin of 10.6, hematocrit 32.1, white count 10.3, platelet count 196,000. Electrolytes note a sodium of 138, potassium 4.3, chloride 110, bicarbonate 21, BUN 31, creatinine 1.8, glucose 192. PTT is 69.2. conveyor monitor now notes normal sinus rhythm. IMPRESSION AND PLAN: 1. Paroxysmal atrial fibrillation/flutter -- patient has converted to sinus rhythm on intravenous amiodarone. Can discontinue intravenous amiodarone after the current bag is finished. Would not recommend long-term use of amiodarone at this time. Would use simply to convert to sinus rhythm to make any GI procedures possible. Will need long-term anticoagulation as an outpatient. He favors one of the newer agents. 2. Coronary artery disease -- status post multivessel drug-eluting stents to proximal LAD, left circumflex, and right coronary arteries. There is residual high grade stenosis D1 branch and the distal LAD. Continue medical management. 3. Hypertension. 4. Hypercholesterolemia. 5. Chronic renal failure. 6. Diabetes mellitus. 7. Acute gallstone pancreatitis as per GI. [id number]
[2017-04-27] MEDS: HEPARIN 25,000 UNIT/500ML D5W 500 ML IV PRN (10:30)
[2017-04-27] MEDS ORDERED: NURSING VERBAL MED ORDER ONE (11:15)
[2017-04-27] MEDS ORDERED: RIVAROXABAN TAB 15 MG TAB PO SCH (17:45)
[2017-04-27] MEDS ORDERED: CPR/500 PO (19:48)
[2017-04-27] MEDS ORDERED: XRL15 PO (19:48)
[2017-04-27] MEDS ORDERED: ASPEC325 PO (19:50)
--- NOTE | 2017-04-27 19:56 | Discharge Instructions ---
Discharge Instructions Date of Service Apr 27, 2017. Admission Reason for Admission: Gallstone Pancreatitis Discharge Discharge Diagnosis / Problem: acute pancreatitis Discharge Goals Goal(s): Decrease discomfort, Diagnostic testing, Therapeutic intervention Activity Recommendations Activity Limitations: resume your previous activity . Instructions / Follow-Up Instructions / Follow-Up At time of discharge, urinary advised of the following: - A low fat diet could help in preventing recurrence of abdominal symptoms Continue all home medications with the following exceptions: - Aspirin has been increased in dose to 325 mg daily, aspirin cardiology - Given that her heart went into atrial flutter while in hospital, you are at increased risk of clotting. To minimize this risk, he will need to take rivaroxaban (Xarelto) 15 mg daily. It is highly advisable to take this medication at the same time every day to optimize its effectiveness. - Continue a 5 day course of ciprofloxacin 500 mg twice daily. Follow-up appointments are recommended with: - Cardiology - Gastroenterology - Gen. surgery You will be called with these appointment times. If you do not hear back with the appointment time he may call back, or call the respective offices to confirm. Thank you for allowing us to participate in your care. Current Hospital Diet Patient's current hospital diet: Low Fat Diet Discharge Diet Recommended Diet: Low Fat Diet Pending Studies Studies pending at discharge: no Medical Emergencies . Who to Call and When: Medical Emergencies: If at any time you feel your situation is an emergency, please call 911 immediately. . Non-Emergent Contact Non-Emergency issues call your: Primary Care Provider, Shop Clerk, Arts Administrator Or Manager, Surgeon . . "Provider Documentation" section prepared by Dulce Mccullough. . VTE Core Measure Inpt VTE Proph given/why not?: SCD's Resident Tracking Resident Involvement: Resident Care Provided Care Provided: Adult Hospital Medicine
[2017-04-27] MEDS: INSULIN GLARGINE SOLOSTAR 100 UNITS/ML 3 ML PEN SC SCH (19:59)
--- NOTE | 2017-04-27 19:59 | Discharge Summary ---
Discharge Summary Date of Service Apr 27, 2017. (Alka. Mccullough MD) Discharge Summary Admission Date: Apr 25, 2017 at 02:31 Discharge Date: Apr 27, 2017 Discharge Disposition: Home Principal Diagnosis: Acute pancreatitis Immunizations: Have You Had Influenza Vaccine: Unknown History of Tetanus Vaccine?: Unknown History of Pneumococcal: Unknown History of Hepatitis B Vaccine: Unknown Consultations: Cardiology, gastroenterology, general surgery (Alka. Mccullough MD) Medication Reconciliation New Medications: Ciprofloxacin (Ciprofloxacin HCl) 500 Mg Tab 500 MG PO BID for 5 Days, #10 TAB Aspirin (Aspirin) 325 Mg Ectab 325 MG PO QAM, #30 TAB 1 Refill Rivaroxaban (Xarelto) 15 Mg Tab 15 MG PO DAILY@1645, #30 TAB 3 Refills Continued Medications: Albuterol Hfa (Ventolin Hfa) 200 Puffs/70127 Mcg Aers 1-2 PUFFS INH Q6H PRN for SOB/Wheezing, INHALER Atorvastatin (Lipitor) 80 Mg Tab 80 MG PO HS Carvedilol (Coreg) 12.5 Mg Tab 12.5 MG PO BID, TAB Ergocalciferol (Vitamin D 51714 Unit) 50,000 Unit Cap 69205 UNIT PO WK SUNDAYS Furosemide (Lasix) 20 Mg Tab 20 MG PO DAILY Insulin Aspart (Novolog Penfill) 100 Unit/Ml Inj 6 UNITS SQ TIDM INJECT AFTER MEALS Insulin Glargine (Toujeo Solostar) 300 Unit/Ml Inj 24 UNITS SQ HS Losartan Potassium (Cozaar) 100 Mg Tab 100 MG PO DAILY Nitroglycerin (Nitrostat) 0.4 Mg Tab 0.4 MG UT UD PRN for Chest Pain, BTL Discontinued Medications: Aspirin (Aspirin Ec) 81 Mg Tab 81 MG PO DAILY Discharge Exam Patient feeling well, asymptomatic from pancreatitis. Tolerating low-fat diet. No further chest pain, palpitations. Keep her home. ROS unremarkable. Physical Exam: General Appearance: WD/WN, no apparent distress Eyes: normal inspection ENT: hearing grossly normal Neck: supple Respiratory/Chest: lungs clear, normal breath sounds, no respiratory distress, no accessory muscle use Cardiovascular: regular rate, rhythm, no edema, normal peripheral pulses Abdomen / GI: normal bowel sounds, non tender, soft Extremities: no calf tenderness, no pedal edema Neurologic/Psychiatric: alert, normal mood/affect, oriented x 3 Skin: normal color, warm/dry, no rash (Alka. Mccullough MD) tolerated solid low fat diet. insisting to go home. no chest pain, palpitation Review of Systems: Constitutional: No fever Respiratory: No shortness of breath Cardiovascular: No chest pain Abdomen: No pain, No nausea, No vomiting Physical Exam: General Appearance: no apparent distress Respiratory/Chest: lungs clear, no respiratory distress Cardiovascular: regular rate, rhythm Abdomen / GI: normal bowel sounds, non tender, soft Neurologic/Psychiatric: alert, oriented x 3 Skin: warm/dry (Audrey Gates M.D.) Hospital Course 67 yo M with pMHx of HTN, DMII, CKD and NH s/p MELISSA x 4 in 2014 admitted with gallstone pancreatitis confirmed by elevated lipase 71913 and evidence of gallstones on U/S. Gallstone pancreatitis - U/S showed Cholelithiasis but no gallbladder wall thickening or pericholecystic fluid and no biliary ductal dilatation. MRCP confirmed cholelithiasis without MR evidence of acute cholecystitis, findings consistent with mild acute pancreatitis involving the pancreatic head but no perihepatic fluid collection, and no intra or extrahepatic biliary ductal dilatation. There was pancreas divisum. GI consulted - recs appreciated. Initially kept NPO with NSS IVF and started on IV ciprofloxacin given obstruction and leukocytosis. Pain control achieved with morphine and Dilaudid. Lipase was initially 38,000 and trended down to 2000. - On discharge, recommend continuing a low-fat diet to minimize chance of recurrence of symptoms. Follow-up arranged with gastroenterology for further workup in the future including E BUS or repeat imaging in 1 to 2 weeks. Follow- up with Gen surg In one month for assessment of candidacy for cholecystectomy Chest pain in setting of CAD with h/o of NH and stent placement - Cardio consulted- recs appreciated. Elevated trop likely is secondary to demand ischemia related to absence of cardiac medications with a rebound hypertension. The possibility of in stent pathology was considered as he had missed approximately 3-4 days of aspirin. In view of elevated troponin, heparin drip was maintained. Troponin peaked at 0.26 and trended down. - On discharge, continue Coreg 12.5 mg BID, aspirin 325 mg daily (Increased from baby aspirin by cardiology, who also state that this patient should never miss a dose of aspirin in his lifetime.), and atorvastatin 80 mg daily New atrial flutter - spontaneous occurrence, not controlled with diltiazem drip. As per cardiology, Amiodarone drip intiated which resulted in successful conversion back to normal sinus rhythm. No plans for PO amiodarone, to be reserved for conversion if needed. - On discharge, continue beta blockade as above, and started on lifelong oral anticoagulation with Xarelto 15 mg daily (renally dosed). HTN - PRN Hydralazine 10 mg for systolic BP > 180 was needed in hospital for BP control - On discharge, continue Coreg 12.5 mg BID, Lasix 20 mg daily and Losartan 100 mg daily. Recommend follow-up with PCP in 1-2 weeks for reassessment of leg pressure and management of antihypertensives as warranted. DMII - Insulin SS with BSG AC HS while in hospital with Lantus 20 units HS - Resume home regimen CKD III stable - Kidney function remains stable. Total Time Spent: Less than 30 minutes This includes examination of the patient, discharge planning, medication reconciliation, and communication with other providers. (Alka. Mccullough MD) Resident Physician Supervision Note: I independently interviewed and examined the patient and verified the anderson history and physical, reviewed labs and image studies, discussed the case with the resident Dr. Mccullough and agree with the findings and care plan. Total Time Spent: Greater than 30 minutes (40) (Audrey Gates M.D.) Discharge Instructions Please refer to the electronic Patient Visit Report (Discharge Instructions) for additional information. (Alka. Mccullough MD) Additional Copies To Louie Blake M.D. Resident Tracking Resident Involvement: Resident Care Provided Care Provided: Adult Hospital Medicine (Alka. Mccullough MD)
--- NOTE | 2017-04-28 00:58 | GASTROENTEROLOGY PROGRESS NOTE ---
DATE: 04/27/[address] Gates several times today. The patient's lipase today is down to 1813 and is down from yesterday's value at 5735. The patient is without abdominal pain, tolerated a light meal this evening, is without fever or chills. The patient would like to go home. VITAL SIGNS: Today, the patient is afebrile, blood pressure is elevated at 203/95, heart rate 73, 96% on room air. PHYSICAL EXAMINATION: HEART: Normal S1, S2. LUNGS: Clear to auscultation. ABDOMEN: Soft, flat, nontender, nondistended, with good bowel sounds. EXTREMITIES: Without clubbing, cyanosis or edema. RECTAL: Deferred. REVIEW OF SYSTEMS: Otherwise noncontributory based of 13-point exam. IMPRESSION AND PLAN: The patient with initial attack of acute pancreatitis prompting this admission. MRCP suggested inflammatory changes in the pancreas but no common bile duct abnormalities. The pancreatic duct does show evidence of pancreatic divisum without suggestion of a dilated pancreatic duct. There is mild stranding of fluid around the pancreatic head. Physical exam is unchanged. IMPRESSION AND PLAN: The patient would like to go home and has tolerated meals this evening. It is reasonable for the patient to be discharged, although he must maintain a low-fat diet and eat small frequent meals. Anything more substantial may be bothersome to the patient and worsen pancreatitis. I will have the patient return to the office in [address] Mejia. It is unclear in the absence of significant pancreatic duct dilation whether the pancreatic disease is the source of the initial attack. There are gallstones present, but again, the patient did not present with liver test abnormalities. All questions answered. GALA
== END 2017-04-27 20:38 | disposition home or self-care (01) | DRG 439 ==
LOC: C.EDB 23:29 → C.MSN 04-25 02:31 → ENRESERV 04-25 02:46 → C.2T 04-25 10:51
PROVIDERS: ADMIT Student in an Organized Health Care Education/Training Program; ATTEND Family Medicine
DX: K85.10 Biliary acute pancreatitis without necrosis or infection (principal); I24.8 Other forms of acute ischemic heart disease; I48.92 Unspecified atrial flutter; I12.9 Hypertensive chronic kidney disease with stage 1 through stage 4 chronic kidney disease, or unspecified chronic kidney disease; E78.5 Hyperlipidemia, unspecified; N18.3 Chronic kidney disease, stage 3 (moderate); E11.22 Type 2 diabetes mellitus with diabetic chronic kidney disease; R07.9 Chest pain, unspecified; I25.10 Atherosclerotic heart disease of native coronary artery without angina pectoris; I25.2 Old myocardial infarction; Z82.49 Family history of ischemic heart disease and other diseases of the circulatory system; Z79.82 Long term (current) use of aspirin; Z95.5 Presence of coronary angioplasty implant and graft; Z79.4 Long term (current) use of insulin; E11.21 Type 2 diabetes mellitus with diabetic nephropathy; E11.40 Type 2 diabetes mellitus with diabetic neuropathy, unspecified; E11.319 Type 2 diabetes mellitus with unspecified diabetic retinopathy without macular edema; Z83.3 Family history of diabetes mellitus; I48.91 Unspecified atrial fibrillation

== ENCOUNTER → 2017-05-15 | Outpatient (CLI) | payer OTHER, BC ==
[~2017-05-15] MED LIST changes: -ASPI81TA28 PO
--- NOTE | 2017-05-15 13:59 | Myocardial Perfusion Study ---
Myocardial Perfusion Study Rpt Myocardial Perfusion Study Rpt Date of Service 05/15/2017 Myocardial Perfusion Study Rpt ONE DAY NUCLEAR MEDICINE EXERCISE TECHNETIUM 99M MYOCARDIAL PERFUSION SCAN Indication: Recent small troponin elevation during admission for gallstone pancreatitis. History of multivessel coronary artery disease post stenting to RCA/LCx/LAD 2014. Baseline ECG: Sinus bradycardia, prior septal infarct, no ST abnormalities. Ventricular rate 54. Stress ECmm horizontal ST depressions in leads II, III persisting 4 minutes into recovery. Occasional PVCs during recovery. Exercised for 7:10 min, Achieved 10.1 METS, Above average functional capacity. No exercise induced chest pain. HR tim from 85 to 130 representing 84% MPHR. SBP 126/72 - 192/76. Technique: For the stress portion of the study 32.9 mCi of Technetium 99m Cardiolite IV was injected at 11:35 am on 05/15/2017. 30 minutes following the injection, imaging of the heart was performed in multiple projections. For the rest portion of the study, 11.1 mCi of Technetium 99m Cardiolite was injected IV at 09:30 am. One hour following the injection, imaging of the hear was performed in the same projections. Findings: Rotating raw images were reviewed in detail. Potential sources of attenuation include vertical motion on the rest images, minimal gut/liver uptake impacting the inferior imaging border of the heart. No significant extracardiac pathologic uptake. Short axis, vertical long axis and horizontal long axis images were reviewed in detail. No visual TID. Small, moderate in severity, reversible perfusion defect involving the mid anterolateral and apical lateral martinez. Normal LV size. EDV 76 ml. Calculated EF 53%. No regional wall motion abnormalities. SUMMARY: 1. Small, moderate, reversible anterolateral myocardial perfusion defect (SDS 4 ) consistent with diagonal/OM ischemia. 2. Positive stress ECG with [address] depressions in II/III at 84% MPHR 3. Above average functional capacity. Exercised 7:10 min, achieving 10.1 METS 4. Normal hemodynamic response to exercise. No exercise induced chest pain. 5. Normal LV size and function. LVEF 53% with no regional wall motion abnormalities.
--- NOTE | 2017-05-22 16:40 | ECHOCARDIOGRAM REPORT ---
*NOTICE TO RECEIVING LIBERTARIAN AGENCY This information is strictly Confidential and protected under [place] law. [place] law prohibits you from making any further disclosure of this information unless further disclosure is expressly permitted by the written consent of the person to whom it pertains or is authorized by law. A general authorization for the release of medical or other information is not sufficient for this purpose. Hospital accepts no responsibility if the information is made available to any other person, INCLUDING THE PATIENT. Interpretation Summary * Name: LEYDA GARCIA Study Date: 05/22/2017 12:45 PM BP: 140/60 mmHg * Patient Location: [facility] HR: 56 * : 1950 (M/d/yyyy) Gender: Male Height: 69 in * Age: 67 yrs Ethnicity: CA Weight: 157 lb * Ordering Physician: Kedar Galindo * Referring Physician: Kedar Galindo * Performed By: Magaly King RDCS * * Reason For Study: AFLUTTER * BSA: 1.9 m2 * -- Conclusions -- * There is mild concentric left ventricular hypertrophy. * Left ventricular systolic function is normal. * Grade I diastolic dysfunction, (abnormal relaxation pattern). * There is mild mitral regurgitation. Procedure Details * A complete two-dimensional transthoracic echocardiogram was performed (2D, M-mode, Doppler and color flow Doppler). Left Ventricle * The left ventricle is normal in size. * There is mild concentric left ventricular hypertrophy. * Ejection Fraction = 50-55%. * Left ventricular systolic function is normal. * Grade I diastolic dysfunction, (abnormal relaxation pattern). * The left ventricular wall motion is normal. Right Ventricle * The right ventricle is normal in size and function. * The right ventricular systolic function is normal as assessed by tricuspid annular plane systolic excursion (TAPSE) (normal >1.5 cm). Atria * The left atrial size is normal. * Right atrial size is normal. Mitral Valve * The mitral valve is grossly normal. * There is mild mitral regurgitation. Tricuspid Valve * The tricuspid valve is not well visualized, but is grossly normal. * There is trace tricuspid regurgitation. Aortic Valve * The aortic valve is normal in structure and function. * The aortic valve is trileaflet. * No hemodynamically significant valvular aortic stenosis. * There is no significant aortic regurgitation. Great Vessels * The aortic root is normal size. Pericardium/Pleural * There is no pericardial effusion. MMode 2D Measurements and Calculations IVSd 1.5 cm IVSs 1.8 cm LVIDd 4.3 cm LVIDs 3.1 cm LVPWd 1.4 cm LVPWs 1.7 cm IVS/LVPW 1.1 FS 27.6 % EDV(Teich) 83.8 ml ESV(Teich) 38.7 ml EF(Teich) 53.8 % EDV(cubed) 80.4 ml ESV(cubed) 30.6 ml EF(cubed) 62.0 % % IVS thick 13.9 % % LVPW thick 20.4 % LV mass(C)d 253.4 grams LV mass(C)dI 136.0 grams/m\S\2 LV mass(C)s 212.5 grams LV mass(C)sI 114.0 grams/m\S\2 SV(Teich) 45.1 ml SI(Teich) 24.2 ml/m\S\2 SV(cubed) 49.9 ml SI(cubed) 26.8 ml/m\S\2 Ao root diam 3.3 cm Ao root area 8.7 cm\S\2 LA dimension 3.2 cm LA/Ao 0.96 LVAd ap4 30.8 cm\S\2 LVLd ap4 8.7 cm EDV(MOD-sp4) 90.3 ml EDV(sp4-el) 92.8 ml LVAs ap4 19.9 cm\S\2 LVLs ap4 7.7 cm ESV(MOD-sp4) 43.9 ml ESV(sp4-el) 43.5 ml EF(MOD-sp4) 51.4 % EF(sp4-el) 53.1 % LVAd ap2 25.8 cm\S\2 LVLd ap2 8.8 cm EDV(MOD-sp2) 63.6 ml EDV(sp2-el) 64.2 ml LVAs ap2 17.5 cm\S\2 LVLs ap2 8.1 cm ESV(MOD-sp2) 32.8 ml ESV(sp2-el) 32.0 ml EF(MOD-sp2) 48.4 % EF(sp2-el) 50.1 % LVLd %diff 1.5 % EDV(MOD-bp) 76.0 ml LVLs %diff 4.6 % ESV(MOD-bp) 38.4 ml EF(MOD-bp) 49.5 % SV(MOD-sp4) 46.4 ml SI(MOD-sp4) 24.9 ml/m\S\2 SV(MOD-sp2) 30.8 ml SI(MOD-sp2) 16.5 ml/m\S\2 SV(MOD-bp) 37.6 ml SI(MOD-bp) 20.2 ml/m\S\2 SV(sp4-el) 49.3 ml SI(sp4-el) 26.5 ml/m\S\2 SV(sp2-el) 32.2 ml SI(sp2-el) 17.3 ml/m\S\2 Doppler Measurements and Calculations MV E max simeon 71.3 cm/sec MV A max simeon 74.0 cm/sec MV E/A 0.96 MV dec time 0.25 sec Ao V2 max 98.9 cm/sec Ao max PG 3.9 mmHg Ao max PG (full) 1.4 mmHg LV V1 max PG 2.5 mmHg LV V1 max 78.9 cm/sec
== END | disposition home or self-care (01) ==
LOC: C.NUCL 09:13
PROVIDERS: ATTEND Internal Medicine Interventional Cardiology
DX: I48.92 Unspecified atrial flutter (principal)

== ENCOUNTER → 2017-07-12 | Outpatient (CLI) | payer OTHER, BC ==
[2017-07-12 11:32] LABS: ALBUMIN 3.5 gm/dl (3.4-5.0); BLOOD UREA NITROGEN 37 mg/dl (7-18); CALCIUM 8.7 mg/dl (8.5-10.1); CARBON DIOXIDE 25 mmol/L (21-32); CREATININE 2.05 mg/dl (0.60-1.40); GLUCOSE 159 mg/dl (70-99); POTASSIUM 4.9 mmol/L (3.5-5.1); SODIUM 139 mmol/L (136-145)
[2017-07-12 11:38] LABS: HEMOGLOBIN A1C 8.3 % (4.5-5.6)
== END | disposition home or self-care (01) ==
LOC: C.LABBC 08:43
PROVIDERS: ATTEND Internal Medicine Nephrology
DX: E11.65 Type 2 diabetes mellitus with hyperglycemia (principal); I12.9 Hypertensive chronic kidney disease with stage 1 through stage 4 chronic kidney disease, or unspecified chronic kidney disease; D64.9 Anemia, unspecified; R80.9 Proteinuria, unspecified; E55.9 Vitamin D deficiency, unspecified; N18.3 Chronic kidney disease, stage 3 (moderate)

== ENCOUNTER → 2018-02-20 | Outpatient (CLI) | payer OTHER, BC ==
[2018-02-20 10:51] LABS: ALBUMIN 3.4 gm/dl (3.4-5.0); ALKALINE PHOSPHATASE 74 U/L (45-117); ALT/SGPT 22 U/L (12-78); AST/SGOT 12 U/L (15-37); CHOLESTEROL 98 mg/dl (0-200); LDL CHOLESTEROL CALCULATED 42 mg/dl; TOTAL PROTEIN 6.9 gm/dl (6.4-8.2)
== END | disposition home or self-care (01) ==
LOC: C.LABBC 08:52
PROVIDERS: ATTEND Internal Medicine Interventional Cardiology
DX: I25.10 Atherosclerotic heart disease of native coronary artery without angina pectoris (principal)

== ENCOUNTER 2022-10-23 14:37 | Inpatient (IN) ==
[2022-10-23 15:27] LABS: Basophils # (auto) 0.06 K/uL (0-0.2); Basophils % (auto) 0.6 %; Eosinophils # (auto) 0.46 K/uL (0-0.50); Eosinophils % (auto) 4.7 %; Hematocrit (blood only) 35.7 % (42.0-52.0); Hemoglobin 11.3 g/dl (14.0-18.0); Immature Granulocytes # (auto) 0.03 K/uL (0.01-0.20); Immature Granulocytes % (auto) 0.3 %; Lymphocytes # (auto) 0.83 K/uL (1.2-3.4); Lymphocytes % (auto) 8.5 %; Mean Corpuscular Hemoglobin 26.9 pg (25.0-34.0); Mean Corpuscular Hgb Conc 31.7 g/dL (32.0-36.0); Mean Platelet Volume 10.8 fL (9.4-12.4); Monocytes # (auto) 0.98 K/uL (0.11-0.59); Neutrophils % (auto) 75.9 %; Platelet Count 182 K/uL (130-400); RDW Coefficient of Variation 15.4 % (11.5-14.5); RDW Standard Deviation 47.4 fL (36.4-46.3); White Blood Count 9.76 K/ul (4.8-10.8)
[2022-10-23 15:58] LABS: INR 1.1 (0.9-1.1); Partial Thromboplastin Time 27.9 Seconds (21.0-31.0); Prothrombin Time 12.1 Seconds (9.0-12.0)
--- NOTE | 2022-10-23 15:59 | XRay Report ---
XR chest 1V not portable CLINICAL HISTORY: Chest pain, nonspecific COMPARISON STUDY: Chest radiograph September 28, 2021. FINDINGS: Lung volumes are normal. Lungs are clear. There is no pneumothorax or pleural effusion. Mil d cardiomegaly. Mediastinal contours are normal. There is no evidence for pulmonary edema. IMPRESSION: No acute cardiopulmonary findings. ACT 112: Negative or not required by law. Electronically signed by: Gonzalo Babb M.D. 10/23/2022 3:58 PM
[2022-10-23 16:16] LABS: Albumin Globulin Ratio 1.4 (0.9-2); Bilirubin,Total 0.3 mg/dl (0.2-1.0); Calcium 8.6 mg/dl (8.6-10.3); Creatinine Clr Calc Pharmacy 11.5 ml/min; Est GFR (African American) 13.1 ml/min; Est GFR (Non-African American) 11.3 ml/min; Globulin 2.8 gm/dl (2.5-4.0); Potassium 5.4 mmol/L (3.5-5.1); Total Protein 6.8 gm/dl (6.0-8.3); Troponin I High Sensitivity 626.6 pg/ml (0-20)
[2022-10-23] MEDS ORDERED: ASPIRIN CHEW 324 MG PO STA (16:21)
[2022-10-23] MEDS ORDERED: SODIUM CHLORIDE 0.9% 1000ML 500 ML IV ONE (16:25)
--- NOTE | 2022-10-23 16:34 | Emergency Department Note ---
Impression & Plan Acute non-ST elevation myocardial infarction (NSTEMI), Cough, Atrial fibrillation, EDEL (acute kidney injury) ED Provider Note NAME: LEYDA GARCIA AGE: 72 SEX: M : 1950 ARRIVES VIA: Walk-In INFORMANT: Patient, the patient's significant other ED PROVIDER(S): Vinod Herrera DO CHIEF COMPLAINT: Cough HPI: The patient is a 72-year-old male who presented to the emergency department for an evaluation of cough and chest pain. The patient states that he has been noticing cough as well as chest pain. Mostly has chest pain when he coughs. He has noticed chest pain otherwise. He does not see his family doctor for the symptoms. The patient presented to the emergency department with his significant other. The patient had laboratory and radiographic studies obtained while in triage. He denies having any lower extremity swelling. He does state that his symptoms are worse with exertion as well as lying flat. The patient has not been seen by his family doctor for the symptoms. ROS: See above HPI for pertinent positives & negatives. A total of 10 systems reviewed and were otherwise negative. PAST MEDICAL HISTORY: See Below PAST SURGICAL HISTORY: See Below FAMILY HISTORY: See Below SOCIAL HISTORY: See Below HOME MEDICATIONS: See Below ALLERGIES: See Below VITALS: See Below PHYSICAL EXAMINATION: GENERAL: Patient is awake alert in no acute distress patient is resting comfortably and showing no signs of anxiety EYES: The conjunctivae are clear. The pupils are round and reactive. EARS, NOSE, MOUTH AND THROAT: The nose is without any evidence of any deformity. Mucous membranes are moist. Tongue is midline. NECK: The neck is nontender and supple. RESPIRATORY: Diminished breath sounds are noted throughout. There was no tachypnea or conversational dyspnea. CARDIOVASCULAR: Regular rate and rhythm noted there no murmurs rubs or gallops normal S1 normal S2. GASTROINTESTINAL: The abdomen is soft. Abdomen is nontender. MUSCULOSKELETAL/EXTREMITIES: There is no evidence of gross deformity full range of motion is noted in the hips and shoulders. SKIN: There is no obvious evidence of any rash. There are no petechiae, pallor or cyanosis noted. NEUROLOGIC: Patient is awake alert and oriented x3 MEDICAL DECISION MAKING: The patient is a 72-year-old male who does a history of underlying renal insufficiency who presented to the emergency department for an evaluation of cough. The patient mostly had cough and chest pain with the cough. He did have laboratory and radiographic studies drawn in triage. He was found to have atrial fibrillation. He has a history of paroxysmal atrial fibrillation. QRS morphology appeared similar to previous EKG. He was found have an elevation in his troponin as well as creatinine. I discussed patient's laboratory and radiographic studies with him. Given his findings I also discussed this case with the on-call [facility] hospitalist. They have agreed to evaluate the patient in the emergency department for further management and disposition. Triage Nursing notes reviewed. Prior medical records reviewed Vital Signs: reviewed and remarkable for no significant abnormalities Differential diagnosis: Cardiac ischemia, aortic dissection, pulmonary embolism, pneumothorax, pneumonia, pericarditis, myocarditis, esophageal rupture, GERD, cholecystitis, pancreatitis, musculoskeletal, as well as other pathologies. ER treatment provided: See below Diagnostics interpreted by me: ECG: EKG was obtained in the emergency department. My interpretation is atrial fibrillation at 80 bpm. There were no PVCs noted. Nonspecific left bundle branch block pattern was noted. ST depressions with T wave inversions were noted in the lateral leads. This was compared to a tracing from September 28, 2021. Atrial fibrillation is new however the QRST morphology is unchanged. Cardiac Monitoring: An order was placed for continuous cardiac monitoring. The monitor shows a rate of 81 bpm with sinus rhythm. Laboratory studies: As stated above and show below. Imaging studies: See below. Radiographic imaging was reviewed by myself Consultation(s): I discussed this case with Dr. Arriaga who is on-call for the [facility]. Past Med/Surg History Medical History Anemia Asthma d/t asbestos--inhaler prn Atrial fibrillation takes aspirin daily--follows with Dr. Galindo Carpal tunnel syndrome, bilateral Cholelithiasis Chronic kidney disease, stage 2 (mild) Chronic kidney disease, stage 3 Coronary artery disease Diabetes mellitus with insulin therapy Diabetes mellitus, type 2 Diabetic nephropathy associated with type 2 diabetes mellitus Dyslipidemia History of diabetic retinopathy Hyperlipidemia Hypertension Hypertension Myocardial Infarction 2015 Pancreatitis Paroxysmal atrial fibrillation T2DM (type 2 diabetes mellitus) Vitamin D deficiency Surgical History History of cardiac cath 2015x2 @ [facility] in [place], [place]--4 stents placed History of colonoscopy History of endoscopic sinus surgery History of left inguinal hernia repair History of tooth extraction Hx of vasectomy Family History Father Myocardial infarction Cardiac disorder Hypertension Brother Cardiac disorder Hypertension Other No family history of adverse response to anesthesia Social History Smoking Status: Never smoker Second Hand Exposure: Yes (parents smoked); Hx Alcohol Use: Yes Alcohol type: beer, wine and hard liquor Hx Substance Use: No Preferred Language: Cypriot Communication Ability: Effective Visual Impairment: Limited Hearing Ability: Normal Him Tech Required: No Beliefs That Will Affect Care: None marital status: Current Living Situation: Spouse current occupational status: employed 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 [employer] Feels Safe at Home: Yes Childhood Exposure to Second-Hand Smoke: Yes caffeine: Yes Dental Care, Regularly: No Physical Activity Frequency: Daily Seatbelt Use: always Sunscreen Use: Yes Assistive Devices: Glasses Allergies Allergies Allergy/AdvReac Type Severity Reaction Status Date / Time No Known Drug Allergies Allergy Verified 10/23/22 16:54 Home Meds Home Medications Medication Instructions Recorded Confirmed albuterol sulfate 90 mcg/actuation 1 - 2 puff inhalation Q6H PRN 09/29/21 10/23/22 aerosol inhaler (Ventolin HFA) Shortness Of Breath Or Wheezing insulin aspart U-100 100 unit/mL 0 unit subcut TID 10/23/22 10/23/22 (3 mL) subcutaneous pen (Novolog FlexPen U-100 Insulin aspart) Previous Rx's Medication Instructions Recorded atorvastatin 80 mg tablet 80 mg PO HS #90 tabs 09/16/21 nitroglycerin 0.4 mg sublingual 0.4 mg sublingual UD PRN Angina 12/27/21 tablet #30 tabs amlodipine 5 mg tablet 5 mg PO DAILY #90 tabs 05/04/22 calcitriol 0.25 mcg capsule 0.25 mcg PO DAILY #90 caps 05/04/22 isosorbide mononitrate 30 mg 30 mg PO BID #180 tabs 05/04/22 tablet,extended release 24 hr carvedilol 12.5 mg tablet 12.5 mg PO BID #180 tabs 05/24/22 insulin degludec 100 unit/mL (3 See Rx Instructions .Route 08/22/22 mL) subcutaneous pen (Tresiba .COMPLEX #15 mL FlexTouch U-100 insulin) FreeStyle Lite Strips (blood sugar #200 ea 08/28/22 diagnostic) Results & Data (ED) Vital Signs Vital Signs - 24 hr 10/23/22 14:53 10/23/22 16:34 10/23/22 16:24 Temperature 36.1 C L Temperature Source Temporal Artery Scan Pulse Rate 78 61 77 Pulse Rate from SpO2 Sensor 78 Respiratory Rate 24 20 Respiratory Effort / Characteristics Non-Labored Spontaneous Respiratory Depth Normal Blood Pressure 131/79 Blood Pressure Mean 96 Pulse Oximetry 98 96 Oxygen Delivery Method Room Air Sepsis Recent Fever Within 48 Hours No Sepsis New/Unexplained Change in Mental Status No Sepsis Action Taken by Nursing No Action Required 10/23/22 16:30 10/23/22 16:40 10/23/22 16:50 Temperature Temperature Source Pulse Rate 89 83 91 H Pulse Rate from SpO2 Sensor 90 83 88 Respiratory Rate 23 24 23 Respiratory Effort / Characteristics Respiratory Depth Blood Pressure Blood Pressure Mean Pulse Oximetry 97 95 95 Oxygen Delivery Method Sepsis Recent Fever Within 48 Hours Sepsis New/Unexplained Change in Mental Status Sepsis Action Taken by Nursing 10/23/22 17:00 10/23/22 17:10 10/23/22 17:20 Temperature Temperature Source Pulse Rate 90 90 93 H Pulse Rate from SpO2 Sensor 98 H 91 H 96 H Respiratory Rate 25 H Respiratory Effort / Characteristics Respiratory Depth Blood Pressure Blood Pressure Mean Pulse Oximetry 95 95 93 Oxygen Delivery Method Sepsis Recent Fever Within 48 Hours Sepsis New/Unexplained Change in Mental Status Sepsis Action Taken by Nursing 10/23/22 17:27 10/23/22 17:27 10/23/22 17:30 Temperature Temperature Source Pulse Rate 91 H 93 H Pulse Rate from SpO2 Sensor 91 H 92 H Respiratory Rate 21 25 H Respiratory Effort / Characteristics Respiratory Depth Blood Pressure 153/101 H Blood Pressure Mean 118 Pulse Oximetry 94 96 Oxygen Delivery Method Sepsis Recent Fever Within 48 Hours Sepsis New/Unexplained Change in Mental Status Sepsis Action Taken by Nursing 10/23/22 17:40 10/23/22 17:50 10/23/22 18:00 Temperature Temperature Source Pulse Rate 89 96 H Pulse Rate from SpO2 Sensor 95 H 90 89 Respiratory Rate 19 26 H 28 H Respiratory Effort / Characteristics Respiratory Depth Blood Pressure Blood Pressure Mean Pulse Oximetry 96 94 95 Oxygen Delivery Method Sepsis Recent Fever Within 48 Hours Sepsis New/Unexplained Change in Mental Status Sepsis Action Taken by Nursing 10/23/22 18:10 10/23/22 18:11 10/23/22 18:11 Temperature Temperature Source Pulse Rate 89 Pulse Rate from SpO2 Sensor 89 85 Respiratory Rate 22 Respiratory Effort / Characteristics Respiratory Depth Blood Pressure 140/85 Blood Pressure Mean 103 Pulse Oximetry 94 92 Oxygen Delivery Method Sepsis Recent Fever Within 48 Hours Sepsis New/Unexplained Change in Mental Status Sepsis Action Taken by Nursing 10/23/22 18:20 10/23/22 18:30 10/23/22 18:40 Temperature Temperature Source Pulse Rate 84 93 H 91 H Pulse Rate from SpO2 Sensor 89 95 H 88 Respiratory Rate 23 17 21 Respiratory Effort / Characteristics Respiratory Depth Blood Pressure Blood Pressure Mean Pulse Oximetry 96 96 95 Oxygen Delivery Method Sepsis Recent Fever Within 48 Hours Sepsis New/Unexplained Change in Mental Status Sepsis Action Taken by Nursing 10/23/22 18:50 10/23/22 19:00 Temperature Temperature Source Pulse Rate 92 H 81 Pulse Rate from SpO2 Sensor 97 H 91 H Respiratory Rate 21 23 Respiratory Effort / Characteristics Respiratory Depth Blood Pressure Blood Pressure Mean Pulse Oximetry 93 94 Oxygen Delivery Method Sepsis Recent Fever Within 48 Hours Sepsis New/Unexplained Change in Mental Status Sepsis Action Taken by Long Term Medications Current Medication List: was personally reviewed by me Laboratory Data Attestation: I reviewed the patient's lab results. 10/23/22 15:12 10/23/22 15:12 Lab Results 10/23/22 10/23/22 10/23/22 Range/Units 15:12 15:12 15:12 WBC 9.76 (4.8-10.8) K/ul RBC 4.20 L (4.70-6.10) M/uL Hgb 11.3 L (14.0-18.0) g/dl Hct 35.7 L (42.0-52.0) % MCV 85.0 (80.0-100.0) fL MCH 26.9 (25.0-34.0) pg MCHC 31.7 L (32.0-36.0) g/dL RDW Std Deviation 47.4 H (36.4-46.3) fL RDW Coeff of Jocelyn 15.4 H (11.5-14.5) % Plt Count 182 (130-400) K/uL MPV 10.8 (9.4-12.4) fL Immature Gran % (Auto) 0.3 % Neut % (Auto) 75.9 % Lymph % (Auto) 8.5 % Stafford % (Auto) 10.0 % Eos % (Auto) 4.7 % Baso % (Auto) 0.6 % Neut # (Auto) 7.40 H (1.40-6.50) K/uL Lymph # (Auto) 0.83 L (1.2-3.4) K/uL Stafford # (Auto) 0.98 H (0.11-0.59) K/uL Eos # (Auto) 0.46 (0-0.50) K/uL Baso # (Auto) 0.06 (0-0.2) K/uL Immature Gran # (Auto) 0.03 (0.01-0.20) K/uL PT 12.1 H (9.0-12.0) Seconds INR 1.1 (0.9-1.1) APTT 27.9 (21.0-31.0) Seconds PTT Ratio 1.0 Sodium 139 (136-145) mmol/L Potassium 5.4 H (3.5-5.1) mmol/L Chloride 112 H (98-107) mmol/L Carbon Dioxide 18 L (21-32) mmol/L Anion Gap 9 (3-11) BUN 96 H (6-23) mg/dl Creatinine 4.80 H* (0.6-1.4) mg/dl Est Cr Clr Drug Dosing 11.5 ml/min Est GFR ( Amer) 13.1 ml/min Est GFR (Non-Af Amer) 11.3 ml/min BUN/Creatinine Ratio 20.0 (10-20) Glucose 133 H (70-99(Fasting)) mg/dl Calcium 8.6 (8.6-10.3) mg/dl Phosphorus (2.5-4.9) mg/dl Total Bilirubin 0.3 (0.2-1.0) mg/dl AST 16 (13-39) U/L ALT 30 (7-52) U/L Alkaline Phosphatase 53 (34-104) U/L Troponin I High Sens 626.6 H* (0-20) pg/ml Total Protein 6.8 (6.0-8.3) gm/dl Albumin 4.0 (3.4-5.0) gm/dl Globulin 2.8 (2.5-4.0) gm/dl Albumin/Globulin Ratio 1.4 (0.9-2) SARS-CoV-2, RNA, NAAT (NEGATIVE) 10/23/22 10/23/22 10/23/22 Range/Units 17:30 17:32 18:13 WBC (4.8-10.8) K/ul RBC (4.70-6.10) M/uL Hgb (14.0-18.0) g/dl Hct (42.0-52.0) % MCV (80.0-100.0) fL MCH (25.0-34.0) pg MCHC (32.0-36.0) g/dL RDW Std Deviation (36.4-46.3) fL RDW Coeff of Jocelyn (11.5-14.5) % Plt Count (130-400) K/uL MPV (9.4-12.4) fL Immature Gran % (Auto) % Neut % (Auto) % Lymph % (Auto) % Stafford % (Auto) % Eos % (Auto) % Baso % (Auto) % Neut # (Auto) (1.40-6.50) K/uL Lymph # (Auto) (1.2-3.4) K/uL Stafford # (Auto) (0.11-0.59) K/uL Eos # (Auto) (0-0.50) K/uL Baso # (Auto) (0-0.2) K/uL Immature Gran # (Auto) (0.01-0.20) K/uL PT (9.0-12.0) Seconds INR (0.9-1.1) APTT > 139.0 H* (21.0-31.0) Seconds PTT Ratio > 5.1 Sodium (136-145) mmol/L Potassium 5.1 (3.5-5.1) mmol/L Chloride (98-107) mmol/L Carbon Dioxide (21-32) mmol/L Anion Gap (3-11) BUN (6-23) mg/dl Creatinine (0.6-1.4) mg/dl Est Cr Clr Drug Dosing ml/min Est GFR ( Amer) ml/min Est GFR (Non-Af Amer) ml/min BUN/Creatinine Ratio (10-20) Glucose (70-99(Fasting)) mg/dl Calcium (8.6-10.3) mg/dl Phosphorus 6.1 H (2.5-4.9) mg/dl Total Bilirubin (0.2-1.0) mg/dl AST (13-39) U/L ALT (7-52) U/L Alkaline Phosphatase (34-104) U/L Troponin I High Sens 562.2 H* (0-20) pg/ml Total Protein (6.0-8.3) gm/dl Albumin (3.4-5.0) gm/dl Globulin (2.5-4.0) gm/dl Albumin/Globulin Ratio (0.9-2) SARS-CoV-2, RNA, NAAT NEGATIVE (NEGATIVE) Administered Medications Famotidine (Famotidine 20 Mg Tab) 20 mg PO QAM [facility] Stop: 11/22/22 17:59 Last Admin: 10/23/22 19:32 Dose: 20 mg Documented By: KEMAL Azithromycin 500 mg/ Dextrose 255 mls @ 127.5 mls/hr IV 1815 ONE Stop: 10/23/22 20:14 Last Admin: 10/23/22 18:20 Dose: 127.5 mls/hr Documented By: LAMONT Levalbuterol HCl (Levalbuterol Hcl 1.25 Mg/3 Ml Neb) 1.25 mg NEB Q6R [facility]; Protocol Stop: 11/22/22 18:59 Last Admin: 10/23/22 18:20 Dose: 1.25 mg Documented By: LAMONT Nitroglycerin (Nitroglycerin 2% Ointment 30gm Tube) 0.5 inch EXT Q6H [facility] Stop: 11/22/22 19:29 Last Admin: 10/23/22 19:27 Dose: 0.5 inch Documented By: KEMAL Discontinued Medications Aspirin (Aspirin Chew 324 Mg) 324 mg PO NOW STA Stop: 10/23/22 16:22 Last Admin: 10/23/22 16:54 Dose: 324 mg Documented By: ALMONT Calcium Gluconate (Calcium Gluconate 1000 Mg/60 Ml Nss) Confirm Administered Dose 1,000 mg IV .STK-MED ONE Stop: 10/23/22 16:58 Last Admin: 10/23/22 17:37 Dose: Not Given Documented By: LAMONT Heparin Sodium (Porcine) (Heparin Sod (Porcine) 1000 Unit/Ml) Confirm Administered Dose 1,000 units .ROUTE .STK-MED ONE Stop: 10/23/22 17:54 Last Admin: 10/23/22 17:55 Dose: 5,000 units Documented By: LAOMNT Co-signed By: OLVIN Heparin Sodium/Dextrose (Heparin Iv Adult Wt-Based Standard With Bolus Protocol) 1 each IV NOW STA; Protocol Stop: 10/23/22 17:35 Last Admin: 10/23/22 17:55 Dose: Not Given Documented By: LAMONT Heparin Sodium/Dextrose (Heparin 68373 Unit/500 Ml D5w) Confirm Administered Dose 25,000 units IV .STPzoom-MED ONE Stop: 10/23/22 17:46 Last Admin: 10/23/22 17:52 Dose: 1,050 units Documented By: LAMONT Co-signed By: OLVIN Sodium Chloride (Nss 1000ml) 500 mls @ 999 mls/hr IV .Q31M ONE Stop: 10/23/22 16:55 Last Infusion: 10/23/22 18:02 Dose: 0 mls/hr Documented By: Admin: 10/23/22 16:55 Dose: 999 mls/hr Documented By: LAMONT Calcium Gluconate () 1,000 mg in 60 mls @ 240 mls/hr IV ONE STA Stop: 10/23/22 17:14 Last Infusion: 10/23/22 18:02 Dose: 0 mls/hr Documented By: Admin: 10/23/22 17:29 Dose: 240 mls/hr Documented By: LAMONT Methylprednisolone (Methylprednisolone 125 Mg/2 Ml Vial) 60 mg IV NOW STA Stop: 10/23/22 17:54 Last Admin: 10/23/22 18:19 Dose: 60 mg Documented By: LAMONT Nitroglycerin (Nitroglycerin Sl 0.4 Mg/Tab Tab) 0.4 mg SL NOW STA Stop: 10/23/22 17:49 Last Admin: 10/23/22 18:00 Dose: 0.4 mg Documented By: LAMONT Imaging Data Attestation: I personally reviewed and interpreted this imaging study as follows: My Impression: 1 view chest x-ray was obtained in the emergency department. My interpretation is no acute disease, final report below. Radiologist's Impression: Chest X-Ray 10/23/22 14:55 XR chest 1V not portable CLINICAL HISTORY: Chest pain, nonspecific COMPARISON STUDY: Chest radiograph September 28, 2021. FINDINGS: Lung volumes are normal. Lungs are clear. There is no pneumothorax or pleural effusion. Mild cardiomegaly. Mediastinal contours are normal. There is no evidence for pulmonary edema. IMPRESSION: No acute cardiopulmonary findings. ACT 112: Negative or not required by law. Electronically signed by: Gonzalo Babb M.D. 10/23/2022 3:58 PM Discharge Plan Visit Data Chief Complaint: Cough Stated Complaint: BRONCHITIS,COUGH,SOB ED Provider: Vinod Herrera Discharge Problem: Acute non-ST elevation myocardial infarction (NSTEMI), Cough, Atrial fibrillation, EDEL (acute kidney injury) Prescriptions Prescriptions: No Action atorvastatin 80 mg tablet 80 mg PO HS Qty: 90 3RF carvedilol 12.5 mg tablet 12.5 mg PO BID Qty: 180 3RF (DME) FreeStyle Lite Strips Strip See Rx Instructions .Route Qty: 200 0RF Rx Instructions: test 2 times daily isosorbide mononitrate 30 mg tablet extended release 24 hr 30 mg PO BID Qty: 180 3RF calcitriol 0.25 mcg capsule 0.25 mcg PO DAILY Qty: 90 3RF amlodipine 5 mg tablet 5 mg PO DAILY Qty: 90 3RF Tresiba FlexTouch U-100 100 unit/mL (3 mL) insulin pen See Rx Instructions .ROUTE .COMPLEX Qty: 15 3RF Dose Instruction: INJECT 24 UNITS SUBCUTANEOUSLY AT BEDTIME Rx Instructions: INJECT 10-14 UNITS SUBCUTANEOUSLY AT BEDTIME nitroglycerin 0.4 mg tablet, sublingual 0.4 mg Sublingual UD PRN (Reason: Angina) Qty: 30 3RF albuterol sulfate [Ventolin HFA] 90 mcg/actuation HFA aerosol inhaler 1 - 2 puff inhalation Q6H PRN (Reason: Shortness Of Breath Or Wheezing) insulin aspart U-100 [Novolog FlexPen U-100 Insulin] 100 unit/mL (3 mL) insulin pen 0 unit subcut TID MDD 18 units Rx Instructions: Pt is supposed to inject 0-18 units TID per sliding scale. However pt has been without this medication for a little over a month due to cost of medication.
[2022-10-23] MEDS ORDERED: CALCIUM GLUCONATE 10% 1,000 MG in DEXTROSE 5% 50 ML IV STA (16:49)
[2022-10-23] MEDS ORDERED: STAT IV STA (16:49)
--- NOTE | 2022-10-23 16:50 | History & Physical Report ---
Date of Service October 23, 2022 Assessment & Plan (1) Elevated troponin: Plan: -Admit to the PCU on tele -The patient is currently afebrile, hemodynamically stable, and stable on RA -At this time the etiology of his elevated trop is unknown but the differential includes NSTEMI, demand ischemia with falsely elevated trop due to ESRD -The patient's initial high sen trop is elevated at 626 with 2 hour repeat in process, no acute ST segment or T-wave inversions in the ED and with repeat with recurrence of chest pain -Spoke with Cardiology, appreciate their quick response, they agree with starting a heparin drip for now, continue to trend troponin, TTE tomorrow, and continued beat dario therapy -Patient had one episode of substernal CP after admission, ECG still without acute ST segment or T-wave changes on repeat ECG, pain was improved with 0.4 mg SL Nitro -Continue to monitor on tele, trend High sen trop q6h overnight, repeat ECG with any additional episodes of CP, cardiology will see the patient in the am -Continue heparin drip for now -Continue home BID Carvedilol and Imdur -BL SCD's and Heparin drip for DVT PPX -AM CBC, BMP, Mag, phos, PT/INR, APTT (2) Atrial fibrillation: Plan: -Hx of Paroxysmal Afib, not previously on AC as he is typically in NSR and the patient wanted to try and avoid bleeding risks -Patient now persistently in afib, HR currently well-controlled -Discussed starting Heparin drip with the patient and his , they are in agreement -Continue heparin drip for now, patient would want to have additional discussions regarding long-term AC during his admission -Cardiology consulted and will follow (3) SOB (shortness of breath): Plan: -Likely multifactorial at time including possible COPD exacerbation, afib/NSTEMI, and anxiety -The patient is without leukocytosis or focal consolidation on CXR, is wheezing throughout on exam -Was recently around his Grandson last week who had a UR, will obtain a full respiratory biofire panel -For now will treat as a COPD exacerbation with Azithromycin, 60 mg IV solu- medrol daily (can switch to PO when more stable), QID DuoNebs, incentive spirometry, and flutter therapy -Prn O2 to keep SpO2 between 88-92% with his COPD -Follow biofire (4) Chest pain: Plan: -See elevated trop and SOB (5) ESRD (end stage renal disease): Plan: -Cr today at 4.8, baseline over the past year appears closer to 4.2-4.3 -[place]. [place] [facility] [place] -If needed, the patient would want dialysis -Consulted and spoke with Dr. Interiano, appreciate her help >Agrees with medical management of electrolyte abnormalities at this time as he is still making urine and stable >She will see him in the am -Clarified, Dr. Interiano is ok with starting the heparin drip at this time for Afib and possible NSTEMI, if he would need urgent dialysis would have to hold heparin drip for a few hours prior -Monitor intake and output q6h, avoid nephrotoxic agents, continue calcitriol -Monitor repeat potassium and phos levels today and am BMP, Mag, and Phos -Low potassium diet on top of DM II diet for now (6) Hypertension: Plan: -Stable -Continue amlodipine and Carvedilol (7) T2DM (type 2 diabetes mellitus): Plan: -Monitor BSG ACHS for now, goal is 110-140 -Will start with conservative regimen due to his currently controlled BSG and ESRD -Hold basal insulin for now, CF of 50 and CR of 15 -Adjust regimen as needed -Pharmacy Glyemic consult ordered due to starting steroid for possible COPD exacerbation (8) Coronary artery disease: Plan: -S/P 324 mg Aspirin in the ED -Continue heparin drip -Continue Imdur and Carvedilol -Patient frequently has angina at baseline, but this usually resolves with prn Nitro and his Carvediolol and Imdur (9) Dyslipidemia: Plan: -Continue atorvastatin Plan The patient was discussed with Dr. Bradshaw at the time of the admission History of Present Illness Chief Complaint: Cough, Chest pain, SOB Primary Care Provider: Petr Blake MD Mr. 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 Kong), type 2 diabetes, [id number] hypertension, stage III/IV chronic kidney disease (baseline creatinine 2-2.4), and questionable prior CVA with visual disturbance who presented to the [facility] ED on 10/23/22 with complaints of cough and chest pain. In the ED the patient was found to be afebrile, hemodynamically stable, and stable on RA. Labs were remarkable for a cr of 4.80 (Baseline appears to be closer to 4.3), potassium of 5.4, chloride of 112, and initial high sen trop of 626. Chest xray was read as "No acute cardiopulmonary findings.". Prior to admission the patient was given 500 mL NSS and 324 mg Aspirin. At the time of the exam the patient was sitting in bed in no acute distress with his sitting bedside. He states that he started to develop increased wheezing and SOB. He attributed this to possible bronchitis/COPD exacerbation due to being around his grandson last week who had a URI. He has been more SOB both at rest and with exertion over the past week. He has noticed increased cough without much sputum production over the past week. He has been using his albuterol inhaler which provides temporary relief. When asked about chest pain he explains that he typically has daily angina at baseline, often occurring at night. Over the past week he has continued to experience substernal chest pain both at rest and with exertion. This often radiates to his neck and BL arms at baseline. His symptoms resolve with nitroglycerine and his typical Carvedilol and Imdur. He has not had any chest pain at the time of the exam, his last episode of chest pain was yesterday evening. He denies recent fever, chills, changes in vision, hearing, taste, smell, abd pain, nausea, vomiting, diarrhea, dysuria, hematuria, melena, bloody BM's, increased LE swelling, and recent trauma. When asked, the patient confirms that he is still urinating consistently. I explained that he is currently back in afib and his cr is currently 4.8. We discussed the possibility of dialysis if his renal function would continue to decline, he is interested in dialysis if needed. I also explained that we would like to start a heparin drip at this time due to his persistent afib with increased stroke risk and possible NSTEMI, he and his are in agreement with starting a heparin drip. He denies a history of major bleeding and recent ischemic or hemorrhagic stroke. We discussed code status, the patient wishes to be a Full Code and for his to make medical decisions for him if he could not make them herself. Please refer to Dr. Bradshaw's attestation for any changes to the treatment plan. Allergies Allergy/AdvReac Type Severity Reaction Status Date / Time No Known Drug Allergies Allergy Verified 10/23/22 16:54 Home Medications Medication Instructions Recorded Confirmed Type atorvastatin 80 mg tablet 80 mg PO HS #90 tabs 09/16/21 10/23/22 Rx albuterol sulfate 90 mcg/actuation 1 - 2 puff inhalation Q6H PRN 09/29/21 10/23/22 History aerosol inhaler (Ventolin HFA) Shortness Of Breath Or Wheezing nitroglycerin 0.4 mg sublingual 0.4 mg sublingual UD PRN Angina 12/27/2110/23 Rx tablet #30 tabs amlodipine 5 mg tablet 5 mg PO DAILY #90 tabs 05/04/22 10/23/22 Rx calcitriol 0.25 mcg capsule 0.25 mcg PO DAILY #90 caps 05/04/22 10/23/22 Rx isosorbide mononitrate 30 mg 30 mg PO BID #180 tabs 05/04/22 10/23/22 Rx tablet,extended release 24 hr carvedilol 12.5 mg tablet 12.5 mg PO BID #180 tabs 05/24/22 10/23/22 Rx insulin degludec 100 unit/mL (3 See Rx Instructions .Route 08/22/22 10/23/22 Rx mL) subcutaneous pen (Tresiba .COMPLEX #15 mL FlexTouch U-100 insulin) FreeStyle Lite Strips (blood sugar #200 ea 08/28/22 Rx diagnostic) insulin aspart U-100 100 unit/mL 0 unit subcut TID 10/23/22 10/23/22 History (3 mL) subcutaneous pen (Novolog FlexPen U-100 Insulin aspart) Past Med/Surg History Medical History Anemia Asthma d/t asbestos--inhaler prn Atrial fibrillation takes aspirin daily--follows with Dr. Galindo Carpal tunnel syndrome, bilateral Cholelithiasis Chronic kidney disease, stage 2 (mild) Chronic kidney disease, stage 3 Coronary artery disease Diabetes mellitus with insulin therapy Diabetes mellitus, type 2 Diabetic nephropathy associated with type 2 diabetes mellitus Dyslipidemia History of diabetic retinopathy Hyperlipidemia Hypertension Hypertension Myocardial Infarction 2015 Pancreatitis Paroxysmal atrial fibrillation T2DM (type 2 diabetes mellitus) Vitamin D deficiency Surgical History History of cardiac cath 2015x2 @ [facility] in [place], [place]--4 stents placed History of colonoscopy History of endoscopic sinus surgery History of left inguinal hernia repair History of tooth extraction Hx of vasectomy Family History Father Myocardial infarction Cardiac disorder Hypertension Brother Cardiac disorder Hypertension Other No family history of adverse response to anesthesia Social History Smoking Status: Never smoker Second Hand Exposure: Yes (parents smoked); Hx Alcohol Use: Yes Alcohol type: beer, wine and hard liquor Hx Substance Use: No Preferred Language: Macedonian Communication Ability: Effective Visual Impairment: Limited Hearing Ability: Normal Director Of Physical Education Required: No Beliefs That Will Affect Care: None marital status: Current Living Situation: Spouse current occupational status: employed 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 Safe at Home: Yes Childhood Exposure to Second-Hand Smoke: Yes caffeine: Yes Dental Care, Regularly: No Physical Activity Frequency: Daily Seatbelt Use: always Sunscreen Use: Yes Assistive Devices: Glasses Physical Exam Physical Exam: Physical Exam: General: In no acute distress, stated age, well-nourished, good hygiene HEENT: Normocephalic, atraumatic, no scleral icterus, pupils around round, symmetrical, and reactive to light, moist mucus membranes, trachea midline, no thyromegaly Chest/Pulm: No respiratory distress, symmetrical chest expansion, expiratory wheezing noted throughout Cardiac: irregular rate and rhythm, no murmurs noted Abdomen: Negative for ascites and bruising, normoactive bowel sounds, soft, non-tender to palpation throughout Musculoskeletal: Symmetrical and without signs of acute trauma, upper and lower extremities with full ROM, no atrophy, spasticity, or flaccidity Extremities: Radial, dorsalis pedis, and posterior tibial pulses are intact and symmetrical, no edema noted in the BL LE's Skin: Warm, dry, no rashes , lesions, or scars noted Neuro: Alert and oriented to person, place, month, year, and president, no focal defects, CN II-XII tested and intact, finger to nose test negative, no tremors noted Psych: No acute distress, calm and cooperative during the exam Results & Data Results & Data Vital Signs (Past 12 Hours) Vital Signs Temp Pulse Resp BP Pulse Ox O2 Del Method 10/23/22 16:34 61 10/23/22 14:53 36.1 C L 78 24 131/79 98 Room Air Laboratory Results Abnormal lab results 10/23/22 10/23/22 10/23/22 Range/Units 15:12 15:12 15:12 RBC 4.20 L (4.70-6.10) M/uL Hgb 11.3 L (14.0-18.0) g/dl Hct 35.7 L (42.0-52.0) % MCHC 31.7 L (32.0-36.0) g/dL RDW Std Deviation 47.4 H (36.4-46.3) fL RDW Coeff of Jocelyn 15.4 H (11.5-14.5) % Neut # (Auto) 7.40 H (1.40-6.50) K/uL Lymph # (Auto) 0.83 L (1.2-3.4) K/uL [place] # (Auto) 0.98 H (0.11-0.59) K/uL PT 12.1 H (9.0-12.0) Seconds Potassium 5.4 H (3.5-5.1) mmol/L Chloride 112 H (98-107) mmol/L Carbon Dioxide 18 L (21-32) mmol/L BUN 96 H (6-23) mg/dl Creatinine 4.80 H* (0.6-1.4) mg/dl Glucose 133 H (70-99(Fasting)) mg/dl Phosphorus (2.5-4.9) mg/dl Troponin I High Sens 626.6 H* (0-20) pg/ml 10/23/22 Range/Units 17:32 RBC (4.70-6.10) M/uL Hgb (14.0-18.0) g/dl Hct (42.0-52.0) % MCHC (32.0-36.0) g/dL RDW Std Deviation (36.4-46.3) fL RDW Coeff of Jocelyn (11.5-14.5) % Neut # (Auto) (1.40-6.50) K/uL Lymph # (Auto) (1.2-3.4) K/uL [place] # (Auto) (0.11-0.59) K/uL PT (9.0-12.0) Seconds Potassium (3.5-5.1) mmol/L Chloride (98-107) mmol/L Carbon Dioxide (21-32) mmol/L BUN (6-23) mg/dl Creatinine (0.6-1.4) mg/dl Glucose (70-99(Fasting)) mg/dl Phosphorus 6.1 H (2.5-4.9) mg/dl Troponin I High Sens (0-20) pg/ml Diagnostic Findings Chest X-Ray 10/23/22 14:55 XR chest 1V not portable CLINICAL HISTORY: Chest pain, nonspecific COMPARISON STUDY: Chest radiograph September 28, 2021. FINDINGS: Lung volumes are normal. Lungs are clear. There is no pneumothorax or pleural effusion. Mild cardiomegaly. Mediastinal contours are normal. There is no evidence for pulmonary edema. IMPRESSION: No acute cardiopulmonary findings. ACT 112: Negative or not required by law. Electronically signed by: Gonzalo Babb M.D. 10/23/2022 3:58 PM ECG Additional Comments: Atrial fibrillation Left bundle branch block Abnormal ECG When compared with ECG of 28-SEP-2021 12:43, Atrial fibrillation has replaced Sinus rhythm T wave inversion more evident in Lateral leads Code Status & VTE Plan Code Status Full code VTE Prophylaxis Plan VTE Prophylaxis will be ordered: Yes Supervising Physician Co-Signing Physician Notes Patient seen and examined, chart reviewed, case discussed with Raghu Greer PA-C and I agree with the assessment and plan as above except as otherwise noted Labs and images reviewed Jeramie is a 72-year-old male with a past medical history of CAD s/p multivessel PCI with 4X MELISSA, paroxysmal A-fib not on prior anticoagulation, COPD with occupational exposure, CKD, type II DM who presents with cough and chest pain. At time of bedside visit he is coughing and nauseous, has an episode of no nbloody nonbilious emesis which she thinks is due to the nebulizer loosening sputum. He reports he has had increased wheezing which began a week ago and that his grandson had a URI, he has had intermittent chest pain which typically resolves with nitro however has had chest pain yesterday evening and increased today. Heart rate is irregular, but with a regular rate at time bedside visit. Lungs are with scattered diffuse wheezing. Troponin initially elevated, downtrending and EKG without acute ST segment changes, T wave inversions, or morphology change. Agree with starting heparin drip both in the setting of chest pain and A-fib. Patient does not anticoagulated at baseline due to concerns for fall/bleeding, but agreeable to continue this for now. Suspect his shortness of breath is due to a viral versus COPD exacerbation, with subsequent demand ischemia and hypoxia driven tachycardia. Nephrology consulted and following, aware of heparin drip which would need to be held before dialysis if required. Agree with assessment and management above. PG Care Time/CCT Total # of Minutes Spent Total Time Spent with Patient: Total time spent is greater than 50% in coordination of care (as documented) at patient's floor/unit and/or counseling patient: C[place] [address] INT INP/OBS CARE 3/75MIN Patient Type Established Medical Decision Making High Complexity Diagnoses Elevated troponin R77.8 Atrial fibrillation I48.91 Atrial fibrillation type: unspecified SOB (shortness of breath) R06.02 Chest pain R07.9 ESRD (end stage renal disease) N18.6 Hypertension I10 T2DM (type 2 diabetes mellitus) E11.9 Coronary artery disease I25.10 Dyslipidemia E78.5 (2) Atrial fibrillation Atrial fibrillation type: unspecified Qualified Code(s): I48.91 - Unspecified atrial fibrillation
[2022-10-23] MEDS ORDERED: GLUCAGON FOR INJ 1 MG VIAL SQ PRN (16:54)
[2022-10-23] MEDS ORDERED: GLUCOSE 10 TAB/TUBE PO PRN (16:54)
[2022-10-23] MEDS ORDERED: DEXTROSE 50% 50 ML SYRINGE IV PRN (16:54)
[2022-10-23] MEDS ORDERED: GLUCOSE 40% GEL 15 GM TUBE PO PRN (16:54)
[2022-10-23] MEDS ORDERED: CARBOHYDRATES FOR HYPOGLYCEMIA PO PRN (16:54)
[2022-10-23] MEDS ORDERED: CALCIUM GLUCONATE 1000 MG/60 ML NSS IV ONE (16:57)
[2022-10-23] MEDS ORDERED: CALCIUM GLUCONATE 1,000 MG/60 ML BAG IV STA (17:00)
[2022-10-23] MEDS ORDERED: Heparin IV Adult Wt-Based Standard WITH Bolus Protocol IV STA (17:34)
[2022-10-23] MEDS ORDERED: HEPARIN 25000 UNIT/500 ML D5W IV ONE (17:45)
[2022-10-23] MEDS ORDERED: NITROGLYCERIN SL 0.4 MG/TAB TAB SL STA (17:48)
[2022-10-23] MEDS ORDERED: HEPARIN SOD (PORCINE) 1000 UNIT/ML IV ONE (17:49)
[2022-10-23] MEDS: HEPARIN SODIUM/DEXTROSE 25,000 UNITS/500 ML BAG IV SCH (17:52)
[2022-10-23] MEDS ORDERED: methylPREDNISolone 125 MG/2 ML VIAL IV STA (17:53)
[2022-10-23] MEDS ORDERED: HEPARIN SOD (PORCINE) 1000 UNIT/ML ONE (17:53)
--- NOTE | 2022-10-23 17:57 | Electrocardiogram Report ---
Test Reason : Blood Pressure : / mmHG Vent. Rate : 080 BPM Atrial Rate : 076 BPM P-R Int : 000 ms QRS Dur : 144 ms QT Int : 420 ms P-R-T Axes : 000 -07 155 degrees QTc Int : 484 ms Atrial fibrillation Left bundle branch block Abnormal ECG When compared with ECG of 28-SEP-2021 12:43, Atrial fibrillation has replaced Sinus rhythm T wave inversion more evident in Lateral leads Confirmed by Kedar Henley ([id number]) on 10/23/2022 5:57:30 PM Referred By: Confirmed By:Faizan Henley
[2022-10-23 18:03] LABS: Phosphorus 6.1 mg/dl (2.5-4.9); Potassium 5.1 mmol/L (3.5-5.1)
[2022-10-23] MEDS ORDERED: AZITHROMYCIN 500 MG in DEXTROSE 5% 250 ML IV ONE (18:15)
[2022-10-23] MEDS: LEVALBUTEROL HCL 1.25 MG/3 ML NEB NEB SCH (18:20)
[2022-10-23 18:27] LABS: Troponin I High Sensitivity 562.2 pg/ml (0-20)
[2022-10-23] MEDS ORDERED: PHARMACY GLYCEMIC MGMT CONSULT PRN (18:32)
[2022-10-23] MEDS ORDERED: ONDANSETRON INJ 2 MG/ML 2 ML VIAL IV STA (18:37)
[2022-10-23] MEDS ORDERED: ALBUT/IPRATROP 3MG/0.5MG NEB 3 ML VIAL NEB SCH (19:00)
[2022-10-23 19:06] LABS: Partial Thromboplastin Ratio > 5.1
[2022-10-23] MEDS: NITROGLYCERIN 2% OINTMENT 30GM TUBE EXT SCH (19:27)
[2022-10-23] MEDS: FAMOTIDINE 20 MG TAB PO SCH (19:32)
[2022-10-23 19:37] LABS: Partial Thromboplastin Time > 139.0 Seconds (21.0-31.0)
[2022-10-23] MEDS: guaiFENesin SUGAR FREE 200 MG/10 ML UDC PO SCH ×2 (20:21→23:14)
[2022-10-23 21:00] LABS: Gastric Occult Blood Positive (Negative); pH Gastric Fluid 1
[2022-10-23] MEDS ORDERED: INSULIN ASPART PER UNIT CHARGE SC SCH (21:00)
[2022-10-23 21:03] LABS: Partial Thromboplastin Time 138.8 Seconds (21.0-31.0)
[2022-10-23 21:03] LABS: Adenovirus PCR Not Detected (NotDetected); Bordetella parapertussis PCR Not Detected (NotDetected); Bordetella pertussis PCR Not Detected (NotDetected); Chlamydia pneumoniae PCR Not Detected (NotDetected); Coronavirus 229E PCR Not Detected (NotDetected); Coronavirus CoV-2 (COVID19)PCR Not Detected (NotDetected); Coronavirus HKU1 PCR Not Detected (NotDetected); Coronavirus NL63 PCR Not Detected (NotDetected); Coronavirus OC43PCR Not Detected (NotDetected); Human Metapneumovirus PCR Not Detected (NotDetected); Influenza A PCR Not Detected (NotDetected); Influenza B PCR Not Detected (NotDetected); Mycoplasma pneumoniae PCR Not Detected (NotDetected); Parainfluenza Virus 1 PCR Not Detected (NotDetected); Parainfluenza Virus 2 PCR Not Detected (NotDetected); Parainfluenza Virus 3 PCR Not Detected (NotDetected); Parainfluenza Virus 4 PCR Not Detected (NotDetected); Respiratory Syncytial VirusPCR Not Detected (NotDetected); Rhinovirus/Enterovirus PCR Not Detected (NotDetected)
[2022-10-23] MEDS ORDERED: guaiFENesin SUGAR FREE 200 MG/10 ML UDC PO ONE (21:40)
[2022-10-23] MEDS: PANTOprazole 40 MG in SYRINGE 0 ML IV SCH (21:41)
[2022-10-23] MEDS ORDERED: ACETAMINOPHEN 325 MG TAB PO PRN (21:53)
--- NOTE | 2022-10-23 21:55 | Pharmacy Report ---
Pharmacy Glycemic Short Note 2 - Date of Service October 23, 2022 - Glycemic Short BSG Results (Last 24 hours): 10/23/22 15:12 Glucose 133 H OUTPATIENT ANTIDIABETIC REGIMEN: * Tresiba 10 units, Novolog SSI (2-4 units per meals per DM Endo notes) ASSESSMENT: * 72 year old admitted with afib, ESRD - pharmacy consulted for glycemic management. Started patient on stress of 2 novolog - unclear of PO intake at this time. Opted to hold basal for HS tonight * Will reevaluate basal insulin tomorrow AM PLAN FOR INPATIENT GLYCEMIC CONTROL: * Hold outpatient oral diabetes medications * Basal insulin * Lantus - reevaluate in AM 10/24 * Bolus insulin * NovoLog per scale ACHS or Q6hrs while NPO * Goal Range: Low 110 mg/dL - High 140 mg/dL * Correction Factor: 50 mg/dL/unit * Nutritional / Prandial insulin per carb ratio of 1 unit per 15 grams CHO consumed
[2022-10-23] MEDS: INSULIN ASPART PER UNIT CHARGE SC SCH ×2 (22:01→22:16)
[2022-10-23] MEDS: carvediloL 12.5 MG TAB PO SCH (22:17)
[2022-10-23] MEDS: ATORVASTATIN 40 MG TAB PO SCH (22:17)
[2022-10-23] MEDS: ISOSORBIDE MONO EXTENDED REL 30 MG TABCR PO SCH (23:02)
[2022-10-23] MEDS ORDERED: MoRPHine SULFATE 2 MG/ML CARP IV STA (23:04)
[2022-10-24 00:41] LABS: Partial Thromboplastin Ratio 1.3
[2022-10-24 01:26] LABS: Hematocrit (blood only) 35.8 % (42.0-52.0); Hemoglobin 11.3 g/dl (14.0-18.0); Mean Corpuscular Hemoglobin 26.8 pg (25.0-34.0); Mean Corpuscular Hgb Conc 31.6 g/dL (32.0-36.0); Mean Corpuscular Volume 84.8 fL (80.0-100.0); Mean Platelet Volume 10.7 fL (9.4-12.4); Platelet Count 174 K/uL (130-400); RDW Coefficient of Variation 15.4 % (11.5-14.5); RDW Standard Deviation 46.9 fL (36.4-46.3); Red Blood Count 4.22 M/uL (4.70-6.10); White Blood Count 10.25 K/ul (4.8-10.8)
[2022-10-24 01:43] LABS: Albumin Globulin Ratio 1.3 (0.9-2); Albumin Level 3.6 gm/dl (3.4-5.0); BUN Creatinine Ratio 21.4 (10-20); Bilirubin,Total 0.4 mg/dl (0.2-1.0); Calcium 8.2 mg/dl (8.6-10.3); Creatinine Clr Calc Pharmacy 12.1 ml/min; Est GFR (African American) 13.9 ml/min; Globulin 2.8 gm/dl (2.5-4.0); Phosphorus 5.7 mg/dl (2.5-4.9); Potassium 5.9 mmol/L (3.5-5.1); Total Protein 6.4 gm/dl (6.0-8.3)
[2022-10-24 01:51] LABS: Partial Thromboplastin Ratio 1.4; Partial Thromboplastin Time 39.7 Seconds (21.0-31.0)
[2022-10-24] MEDS: NITROGLYCERIN 2% OINTMENT 30GM TUBE EXT SCH ×2 (01:51→07:47)
[2022-10-24] MEDS: LEVALBUTEROL HCL 1.25 MG/3 ML NEB NEB SCH ×4 (03:43→19:40)
[2022-10-24] MEDS: guaiFENesin SUGAR FREE 200 MG/10 ML UDC PO SCH ×4 (05:52→23:57)
[2022-10-24 05:57] LABS: Hematocrit (blood only) 34.8 % (42.0-52.0); Hemoglobin 11.1 g/dl (14.0-18.0); Mean Corpuscular Hemoglobin 26.9 pg (25.0-34.0); Mean Corpuscular Hgb Conc 31.9 g/dL (32.0-36.0); Mean Corpuscular Volume 84.3 fL (80.0-100.0); Mean Platelet Volume 10.8 fL (9.4-12.4); Platelet Count 182 K/uL (130-400); RDW Coefficient of Variation 15.2 % (11.5-14.5); RDW Standard Deviation 46.5 fL (36.4-46.3); Red Blood Count 4.13 M/uL (4.70-6.10); White Blood Count 10.62 K/ul (4.8-10.8)
[2022-10-24] MEDS ORDERED: MoRPHine SULFATE 2 MG/ML CARP IV STA (06:12)
[2022-10-24] MEDS ORDERED: NITROGLYCERIN SL 0.4 MG/TAB TAB SL PRN (06:12)
[2022-10-24 06:21] LABS: Partial Thromboplastin Ratio 1.6; Partial Thromboplastin Time 43.4 Seconds (21.0-31.0)
[2022-10-24] MEDS: INSULIN ASPART PER UNIT CHARGE SC SCH ×5 (07:44→23:57)
[2022-10-24] MEDS: PANTOprazole 40 MG in SYRINGE 0 ML IV SCH ×2 (07:47→20:29)
[2022-10-24] MEDS: carvediloL 12.5 MG TAB PO SCH ×2 (07:48→20:29)
[2022-10-24] MEDS: ISOSORBIDE MONO EXTENDED REL 30 MG TABCR PO SCH (07:48)
[2022-10-24] MEDS: methylPREDNISolone 60 MG in SYRINGE 0 ML IV SCH (07:48)
[2022-10-24] MEDS: CALCITRIOL 0.25 MCG CAPSULE PO SCH (07:48)
[2022-10-24] MEDS: LANTUS PER UNIT CHARGE SC SCH (08:13)
[2022-10-24] MEDS: FAMOTIDINE 20 MG TAB PO SCH (08:14)
[2022-10-24] MEDS ORDERED: STAT IV Infusion **Titration per Protocol STA ×3 (08:29→09:15)
[2022-10-24] MEDS: NITROGLYCERIN/D5W 100MCG/ML 250 ML IV SCH (08:56)
[2022-10-24] MEDS ORDERED: methylPREDNISolone 125 MG/2 ML VIAL IV SCH (09:00)
--- NOTE | 2022-10-24 09:02 | Hospitalist Progress Note ---
Date of Service October 24, 2022 Assessment & Plan (1) Elevated troponin: Plan: Patient presented with chest pain, was admitted last night Troponin upon admission was in the 500s range Overnight, the patient continued to have ongoing chest pain and his troponin this morning tim up to high 700s. Nurse notified me Patient follows Kedar Galindo from cardiology outpatient Patient is hemodynamically stable at this time but appears to be in obvious distress due to chest pain Repeat EKG reviewed Contacted and informed Jeramie Salmeron from interventional cardiology and Kedar Henley from cardiology via [employer] text about the patient's condition. Image of EKG shared with the cardiologists. Discontinued Nitropaste, Imdur and started the patient on nitro drip He is already on a heparin drip Patient has CKD stage V. Sees tuft machine operator outpatient. He is preparing to start on dialysis. TTE ordered On carvedilol, Lipitor Continue to monitor at PCU. Low threshold for ICU transfer. Communicated with the nurse that change analyst and scrum product owner are already informed. (2) Atrial fibrillation: Plan: -Hx of Paroxysmal Afib, not previously on AC as he is typically in NSR and the patient wanted to try and avoid bleeding risks -Patient now persistently in afib, HR currently fairly-controlled -Discussed starting Heparin drip with the patient and his , they are in agreement -Continue heparin drip for now, patient would want to have additional discussions regarding long-term AC during his admission -Cardiology consulted and will follow (3) SOB (shortness of breath): Plan: -Likely multifactorial at time including possible COPD exacerbation, afib/NSTEMI, and anxiety -The patient is without leukocytosis or focal consolidation on CXR, is wheezing throughout on exam -Was recently around his Grandson last week who had a UR. Respiratory viral panel negative -For now will treat as a COPD exacerbation with Azithromycin, 60 mg IV solu- medrol daily (can switch to PO when more stable), QID DuoNebs, incentive spirometry, and flutter therapy -Prn O2 to keep SpO2 between 88-92% with his COPD (4) Chest pain: Plan: -See elevated trop and SOB (5) ESRD (end stage renal disease): Plan: -Cr today at 4.5, baseline over the past year appears closer to 4.2-4.3 -[place]. [place] [facility] [place] -If needed, the patient would want dialysis -Consulted Dr. Interiano >Agrees with medical management of electrolyte abnormalities at this time as he is still making urine and stable >She will see him today per H&P Per H&P Dr. Interiano is ok with starting the heparin drip at this time for Afib and possible NSTEMI, if he would need urgent dialysis would have to hold heparin drip for a few hours prior -Monitor intake and output q6h, avoid nephrotoxic agents, continue calcitriol -Monitor repeat potassium and phos levels today and am BMP, Mag, and Phos -Low potassium diet on top of DM II diet for now (6) Hypertension: Plan: -Stable -Continue amlodipine and Carvedilol (7) T2DM (type 2 diabetes mellitus): Plan: -Monitor BSG ACHS for now, goal is 110-140 -Will start with conservative regimen due to his currently controlled BSG and ESRD -Hold basal insulin for now, CF of 50 and CR of 15 -Adjust regimen as needed -Pharmacy Glyemic consult ordered due to starting steroid for possible COPD exacerbation (8) Coronary artery disease: Plan: -S/P 324 mg Aspirin in the ED -Continue heparin drip -Continue Imdur and Carvedilol -Per H&P, patient frequently has angina at baseline, but this usually resolves with prn Nitro and his Carvediolol and Imdur (9) Dyslipidemia: Plan: -Continue atorvastatin Admission and Anticipated Discharge Date Admission Date: October 23, 2022 Subjective Was notified by the nurse about ongoing chest pain overnight. Troponin rising from 500s to 700s. Came at the bedside immediately to evaluate the patient. He complains of 8/10 pain in his substernal chest, radiating to his neck. He says that his hands feel numb as well. He appears to be in obvious distress. Review of Systems Review of Systems: Other (Unobtainable due to medical urgency) Physical Exam Physical Exam: General: Awake, conversant. Appears to be in obvious distress. Moaning in pain. Heart: S1, S2/regular rate and rhythm, no murmur rubs or gallops Lungs: Clear to auscultation bilaterally. Normal effort Abdomen: Soft/nontender/nondistended. No hepatosplenomegaly Extremities: No clubbing/cyanosis. No edema Behavior: Appropriate, cooperative Results & Data Results & Data Vital Signs (Past 12 Hours) Vital Signs Temp Pulse Pulse Pulse Resp BP BP 10/24/22 07:00 36.3 C L 105 H 16 133/79 10/24/22 06:57 115 H 20 10/24/22 06:37 103 H 138/84 10/24/22 06:15 103 H 136/88 10/24/22 03:47 105 H 18 10/24/22 02:14 36.5 C 102 H 20 115/68 10/24/22 01:51 83 113/66 10/23/22 22:36 36.9 C 104 H 23 160/79 H 10/23/22 22:00 10/23/22 22:19 36.2 C L 100 H 20 155/82 H 10/23/22 21:10 98 H 21 10/23/22 21:00 89 24 10/23/22 21:00 134/78 10/23/22 20:50 87 20 10/23/22 20:51 92 H Pulse Ox O2 Del Method O2 Flow Rate 10/24/22 07:00 95 Nasal Cannula 4 10/24/22 06:57 95 Nasal Cannula 4 10/24/22 06:37 10/24/22 06:15 96 Nasal Cannula 4 10/24/22 03:47 95 Nasal Cannula 4 10/24/22 02:14 96 Nasal Cannula 4 10/24/22 01:51 10/23/22 22:36 93 Nasal Cannula 4 10/23/22 22:00 Nasal Cannula 4 10/23/22 22:19 95 Nasal Cannula 4 10/23/22 21:10 96 10/23/22 21:00 95 10/23/22 21:00 10/23/22 20:50 96 10/23/22 20:51 96 Nasal Cannula 4 Laboratory Results Abnormal lab results 10/23/22 10/23/22 10/23/22 Range/Units 15:12 15:12 15:12 RBC 4.20 L (4.70-6.10) M/uL Hgb 11.3 L (14.0-18.0) g/dl Hct 35.7 L (42.0-52.0) % MCHC 31.7 L (32.0-36.0) g/dL RDW Std Deviation 47.4 H (36.4-46.3) fL RDW Coeff of Jocelyn 15.4 H (11.5-14.5) % Neut # (Auto) 7.40 H (1.40-6.50) K/uL Lymph # (Auto) 0.83 L (1.2-3.4) K/uL [place] # (Auto) 0.98 H (0.11-0.59) K/uL PT 12.1 H (9.0-12.0) Seconds APTT (21.0-31.0) Seconds Potassium 5.4 H (3.5-5.1) mmol/L Chloride 112 H (98-107) mmol/L Carbon Dioxide 18 L (21-32) mmol/L Anion Gap (3-11) BUN 96 H (6-23) mg/dl Creatinine 4.80 H* (0.6-1.4) mg/dl BUN/Creatinine Ratio (10-20) Glucose 133 H (70-99(Fasting)) mg/dl POC Glucose (70-99) mg/dl Calcium (8.6-10.3) mg/dl Phosphorus (2.5-4.9) mg/dl Troponin I High Sens 626.6 H* (0-20) pg/ml Gastric Occult Blood (Negative) 10/23/22 10/23/22 10/23/22 Range/Units 17:32 18:13 19:55 RBC (4.70-6.10) M/uL Hgb (14.0-18.0) g/dl Hct (42.0-52.0) % MCHC (32.0-36.0) g/dL RDW Std Deviation (36.4-46.3) fL RDW Coeff of Jocelyn (11.5-14.5) % Neut # (Auto) (1.40-6.50) K/uL Lymph # (Auto) (1.2-3.4) K/uL [place] # (Auto) (0.11-0.59) K/uL PT (9.0-12.0) Seconds APTT > 139.0 H* 138.8 H* (21.0-31.0) Seconds Potassium (3.5-5.1) mmol/L Chloride (98-107) mmol/L Carbon Dioxide (21-32) mmol/L Anion Gap (3-11) BUN (6-23) mg/dl Creatinine (0.6-1.4) mg/dl BUN/Creatinine Ratio (10-20) Glucose (70-99(Fasting)) mg/dl POC Glucose (70-99) mg/dl Calcium (8.6-10.3) mg/dl Phosphorus 6.1 H (2.5-4.9) mg/dl Troponin I High Sens 562.2 H* (0-20) pg/ml Gastric Occult Blood (Negative) 10/23/22 10/23/22 10/23/22 Range/Units 20:00 21:49 23:51 RBC (4.70-6.10) M/uL Hgb (14.0-18.0) g/dl Hct (42.0-52.0) % MCHC (32.0-36.0) g/dL RDW Std Deviation (36.4-46.3) fL RDW Coeff of Jocelyn (11.5-14.5) % Neut # (Auto) (1.40-6.50) K/uL Lymph # (Auto) (1.2-3.4) K/uL [place] # (Auto) (0.11-0.59) K/uL PT (9.0-12.0) Seconds APTT 37.0 H (21.0-31.0) Seconds Potassium (3.5-5.1) mmol/L Chloride (98-107) mmol/L Carbon Dioxide (21-32) mmol/L Anion Gap (3-11) BUN (6-23) mg/dl Creatinine (0.6-1.4) mg/dl BUN/Creatinine Ratio (10-20) Glucose (70-99(Fasting)) mg/dl POC Glucose 154 H (70-99) mg/dl Calcium (8.6-10.3) mg/dl Phosphorus (2.5-4.9) mg/dl Troponin I High Sens (0-20) pg/ml Gastric Occult Blood Positive A (Negative) 10/24/22 10/24/22 10/24/22 Range/Units 00:56 00:56 00:56 RBC 4.22 L (4.70-6.10) M/uL Hgb 11.3 L (14.0-18.0) g/dl Hct 35.8 L (42.0-52.0) % MCHC 31.6 L (32.0-36.0) g/dL RDW Std Deviation 46.9 H (36.4-46.3) fL RDW Coeff of Jocelyn 15.4 H (11.5-14.5) % Neut # (Auto) (1.40-6.50) K/uL Lymph # (Auto) (1.2-3.4) K/uL [place] # (Auto) (0.11-0.59) K/uL PT (9.0-12.0) Seconds APTT 39.7 H (21.0-31.0) Seconds Potassium 5.9 H (3.5-5.1) mmol/L Chloride 112 H (98-107) mmol/L Carbon Dioxide 13 L (21-32) mmol/L Anion Gap 12 H (3-11) BUN 98 H (6-23) mg/dl Creatinine 4.57 H* (0.6-1.4) mg/dl BUN/Creatinine Ratio 21.4 H (10-20) Glucose 147 H (70-99(Fasting)) mg/dl POC Glucose (70-99) mg/dl Calcium 8.2 L (8.6-10.3) mg/dl Phosphorus 5.7 H (2.5-4.9) mg/dl Troponin I High Sens 458.0 H* (0-20) pg/ml Gastric Occult Blood (Negative) 10/24/22 10/24/22 10/24/22 Range/Units 03:50 05:32 05:32 RBC (4.70-6.10) M/uL Hgb (14.0-18.0) g/dl Hct (42.0-52.0) % MCHC (32.0-36.0) g/dL RDW Std Deviation (36.4-46.3) fL RDW Coeff of Jocelyn (11.5-14.5) % Neut # (Auto) (1.40-6.50) K/uL Lymph # (Auto) (1.2-3.4) K/uL [place] # (Auto) (0.11-0.59) K/uL PT (9.0-12.0) Seconds APTT 43.4 H (21.0-31.0) Seconds Potassium (3.5-5.1) mmol/L Chloride (98-107) mmol/L Carbon Dioxide (21-32) mmol/L Anion Gap (3-11) BUN (6-23) mg/dl Creatinine (0.6-1.4) mg/dl BUN/Creatinine Ratio (10-20) Glucose (70-99(Fasting)) mg/dl POC Glucose 150 H (70-99) mg/dl Calcium (8.6-10.3) mg/dl Phosphorus (2.5-4.9) mg/dl Troponin I High Sens 787.2 H* D (0-20) pg/ml Gastric Occult Blood (Negative) 10/24/22 10/24/22 Range/Units 05:32 07:30 RBC 4.13 L (4.70-6.10) M/uL Hgb 11.1 L (14.0-18.0) g/dl Hct 34.8 L (42.0-52.0) % MCHC 31.9 L (32.0-36.0) g/dL RDW Std Deviation 46.5 H (36.4-46.3) fL RDW Coeff of Jocelyn 15.2 H (11.5-14.5) % Neut # (Auto) (1.40-6.50) K/uL Lymph # (Auto) (1.2-3.4) K/uL [place] # (Auto) (0.11-0.59) K/uL PT (9.0-12.0) Seconds APTT (21.0-31.0) Seconds Potassium (3.5-5.1) mmol/L Chloride (98-107) mmol/L Carbon Dioxide (21-32) mmol/L Anion Gap (3-11) BUN (6-23) mg/dl Creatinine (0.6-1.4) mg/dl BUN/Creatinine Ratio (10-20) Glucose (70-99(Fasting)) mg/dl POC Glucose 184 H (70-99) mg/dl Calcium (8.6-10.3) mg/dl Phosphorus (2.5-4.9) mg/dl Troponin I High Sens (0-20) pg/ml Gastric Occult Blood (Negative) Diagnostic Findings Chest X-Ray 10/23/22 14:55 XR chest 1V not portable CLINICAL HISTORY: Chest pain, nonspecific COMPARISON STUDY: Chest radiograph September 28, 2021. FINDINGS: Lung volumes are normal. Lungs are clear. There is no pneumothorax or pleural effusion. Mild cardiomegaly. Mediastinal contours are normal. There is no evidence for pulmonary edema. IMPRESSION: No acute cardiopulmonary findings. ACT 112: Negative or not required by law. Electronically signed by: Gonzalo Babb M.D. 10/23/2022 3:58 PM PG Care Time/CCT Total # of Minutes Spent Total Time Spent with Patient: Total time spent is greater than 50% in coordination of care (as documented) at patient's floor/unit and/or counseling patient: Critical Care Time: Yes 40 minutes Coding Level of Care Code None Diagnoses Elevated troponin R77.8 Atrial fibrillation I48.91 Atrial fibrillation type: unspecified SOB (shortness of breath) R06.02 Chest pain R07.9 ESRD (end stage renal disease) N18.6 Hypertension I10 T2DM (type 2 diabetes mellitus) E11.9 Coronary artery disease I25.10 Dyslipidemia E78.5 Additional Codes Critical Care Time - Critical Care Time: Yes ([id number]) (2) Atrial fibrillation Atrial fibrillation type: unspecified Qualified Code(s): I48.91 - Unspecified atrial fibrillation
[2022-10-24] MEDS ORDERED: AMIODARONE / D5W 150 MG/100 ML BAG IV STA ×2 (09:13→09:15)
[2022-10-24] MEDS ORDERED: AMIODARONE IV BOLUS & DRIP IV STA ×2 (09:13→09:15)
[2022-10-24] MEDS ORDERED: 0.2 MICRON FILTER SET 1 EACH IV STA ×2 (09:13→09:15)
--- NOTE | 2022-10-24 09:17 | Cardiology Consultation ---
Date of Consultation October 24, 2022 History of Present Illness Attending Physician: Maurilio Mai MD Allergies Allergy/AdvReac Type Severity Reaction Status Date / Time No Known Drug Allergies Allergy Verified 10/23/22 16:54 Home Medications Medication Instructions Recorded Confirmed Type atorvastatin 80 mg tablet 80 mg PO HS #90 tabs 09/16/21 10/23/22 Rx albuterol sulfate 90 mcg/actuation 1 - 2 puff inhalation Q6H PRN 09/29/21 10/23/22 History aerosol inhaler (Ventolin HFA) Shortness Of Breath Or Wheezing nitroglycerin 0.4 mg sublingual 0.4 mg sublingual UD PRN Angina 12/27/21 10/23/22 Rx tablet #30 tabs amlodipine 5 mg tablet 5 mg PO DAILY #90 tabs 05/04/22 10/23/22 Rx calcitriol 0.25 mcg capsule 0.25 mcg PO DAILY #90 caps 05/04/22 10/23/22 Rx isosorbide mononitrate 30 mg 30 mg PO BID #180 tabs 05/04/22 10/23/22 Rx tablet,extended release 24 hr carvedilol 12.5 mg tablet 12.5 mg PO BID #180 tabs 05/24/22 10/23/22 Rx insulin degludec 100 unit/mL (3 See Rx Instructions .Route 08/22/22 10/23/22 Rx mL) subcutaneous pen (Tresiba .COMPLEX #15 mL FlexTouch U-100 insulin) FreeStyle Lite Strips (blood sugar #200 ea 08/28/22 Rx diagnostic) insulin aspart U-100 100 unit/mL 0 unit subcut TID 10/23/22 10/23/22 History (3 mL) subcutaneous pen (Novolog FlexPen U-100 Insulin aspart) Patient History Medical History Anemia Asthma d/t asbestos--inhaler prn Atrial fibrillation takes aspirin daily--follows with Dr. Galindo Carpal tunnel syndrome, bilateral Cholelithiasis Chronic kidney disease, stage 2 (mild) Chronic kidney disease, stage 3 Coronary artery disease Diabetes mellitus with insulin therapy Diabetes mellitus, type 2 Diabetic nephropathy associated with type 2 diabetes mellitus Dyslipidemia History of diabetic retinopathy Hyperlipidemia Hypertension Hypertension Myocardial Infarction 2015 Pancreatitis Paroxysmal atrial fibrillation T2DM (type 2 diabetes mellitus) Vitamin D deficiency Surgical History History of cardiac cath 2015x2 @ [facility]--4 stents placed History of colonoscopy History of endoscopic sinus surgery History of left inguinal hernia repair History of tooth extraction Hx of vasectomy Family History Father Myocardial infarction Cardiac disorder Hypertension Brother Cardiac disorder Hypertension Other No family history of adverse response to anesthesia Social History Smoking Status: Never smoker Second Hand Exposure: No; Do You Dip or Chew Tobacco: No; Tobacco Cessation Education Requested by Patient: No Hx Alcohol Use: No Hx Substance Use: No Preferred Language: Tamazight Communication Ability: Effective Visual Impairment: Limited Hearing Ability: Normal Compliance Consultant Required: No Beliefs That Will Affect Care: Quaker Quaker Beliefs: Quaker/ Quaker marital status: Current Living Situation: Significant Other current occupational status: employed 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 [employer] Other Information That Helps Us Care for You: No Feels Safe at Home: Yes Safety Concerns: Feels Safe At This Time Childhood Exposure to Second-Hand Smoke: Yes caffeine: Yes Dental Care, Regularly: No Physical Activity Frequency: Daily Seatbelt Use: always Sunscreen Use: Yes Assistive Devices: Glasses Results & Data Vital Signs (Past 12 Hours) Vital Signs Temp Pulse Pulse Resp BP Pulse Ox O2 Del Method 10/24/22 07:00 36.3 C L 105 H 16 133/79 95 Nasal Cannula 10/24/22 06:57 115 H 20 95 Nasal Cannula 10/24/22 06:37 103 H 138/84 10/24/22 06:15 103 H 136/88 96 Nasal Cannula 10/24/22 03:47 105 H 18 95 Nasal Cannula 10/24/22 02:14 36.5 C 102 H 20 115/68 96 Nasal Cannula 10/24/22 01:51 83 113/66 10/23/22 22:36 36.9 C 104 H 23 160/79 H 93 Nasal Cannula 10/23/22 22:00 Nasal Cannula 10/23/22 22:19 36.2 C L 100 H 20 155/82 H 95 Nasal Cannula O2 Flow Rate 10/24/22 07:00 4 0418/23 06:57 4 10/24/22 06:37 10/24/22 06:15 4 10/24/22 03:47 4 10/24/22 02:14 4 10/24/22 01:51 10/23/22 22:36 4 10/23/22 22:00 4 10/23/22 22:19 4 PG Care Time/CCT Total # of Minutes Spent Total Time Spent with Patient: Total time spent is greater than 50% in coordination of care (as documented) at patient's floor/unit and/or counseling patient: Coding Diagnoses
--- NOTE | 2022-10-24 09:23 | Cardiology Consultation ---
Date of Consultation October 24, 2022 Assessment & Plan (1) Acute non-ST elevation myocardial infarction (NSTEMI): Unclear if type I or type II. He has known underlying severe coronary disease (multivessel) but currently appears also to have COPD exacerbation and atrial fibrillation with rapid ventricular response. Furthermore, chronic end-stage renal disease not on dialysis. We will try to slow his heart rate, plan is for temporary dialysis catheter regarding kidney disease, and he will need repeat co ronary angiography to see if there is been any significant change from prior. Based on his current echo there do not seem to be additional wall motion abnormalities but certainly his EF has decreased further compared to prior most likely secondary to the atrial fibrillation. (2) Atrial fibrillation: Previously paroxysmal but now seems to be persistent. He was placed on heparin last night. I will also start him on amiodarone drip after bolus which may help his symptoms. He is also been provided carvedilol but this is unlikely to help in the short-term. Furthermore, additional beta-dario is contraindicated because of significant wheezing. (3) ESRD (end stage renal disease): Patient will require dialysis. Certainly contributes to elevated troponin. When he has his heart catheterization we will also place a temporary dialysis catheter. Treatment per nephrology. (4) Coronary artery disease: Known chronic total occlusion of 2 major epicardial vessels as well as borderline severe stenosis in the left main affecting the ostium of the LAD and the circumflex. Previous interventional cardiology evaluation suggested titrating medical regimen for symptom release and wants refractory than coronary artery bypass graft evaluation. Presently, patient is not appropriate for coronary artery bypass grafting because of his refractory symptoms and instability. He will therefore undergo repeat cardiac catheterization to assure that there is been no new occlusion/ACS. We will work to improve his symptoms. Additional recommendations pending results of coronary angiography. I would reserve PCI only for ACS with clear target, cardiogenic shock, refractory ventricular arrhythmia, and without high risk of complication. Intra-aortic balloon pump may be necessary to bridge. History of Present Illness Reason for Consultation: Elevated troponin Attending Physician: Maurilio Mai MD History of Present Illness 72-year-old male diabetic with a prior history of coronary disease presents yesterday for shortness of breath, chest tightness, and atrial fibrillation. Overnight his troponins were abnormal. He states he has had many chest pain episodes preceding this admission which have responded to his antianginal regimen. However, today he continues with chest pressure, heaviness, and tightness which has not responded to therapy. Patient has a history of severe chronic total occlusion in the PDA branch of the RCA as well as in the circumflex. Moderate nonocclusive left main disease extending into the ostium of the LAD as well as the circumflex last evaluated in February and believed to be around 50 to 70%. At that time, plan was to optimize his medical therapy and should he have recurrent symptoms he was to undergo coronary artery bypass graft evaluation. He was known to have paroxysmal atrial fibrillation at that time but refused anticoagulation secondary to risk of bleeding. Evidently his renal function has continued to worsen and he did not show to his last nephrology appointment. Spoke with nephrology today and they believe he is end-stage renal disease and will require dialysis from this point forward. I reviewed the patient's previous echocardiogram which showed mild to moderate LV dysfunction (EF 40 to 45%), mild to moderate mitral regurgitation, mild TR, mild left atrial enlargement, borderline pulmonary hypertension, and wall motion abnormalities (akinesis) of the inferior, inferoseptal, and inferolateral myocardium. Patient is willing to undergo repeat catheterization, temporary dialysis catheter placement, and undergo dialysis if needed. He prefers [facility] for coronary artery bypass grafting if we get to that point. Patient denies any tobacco use. He has been taking his medications as recommended. He notes class III exertional angina for many months preceding this presentation. This is associated with dyspnea. He states he does have a history of COPD but no asthma. He did have a cough preceding admission. He denies syncope, near syncope, orthopnea, PND, racing heartbeat, palpitations, or edema. He continues at this time with chest pressure and states that he feels very poorly. I have reviewed his monitor and he has been in atrial fibrillation with rapid ventricular response but not with excessively rapid response. Allergies Allergy/AdvReac Type Severity Reaction Status Date / Time No Known Drug Allergies Allergy Verified 10/23/22 16:54 Home Medications Medication Instructions Recorded Confirmed Type atorvastatin 80 mg tablet 80 mg PO HS #90 tabs 09/16/21 10/23/22 Rx albuterol sulfate 90 mcg/actuation 1 - 2 puff inhalation Q6H PRN 09/29/21 10/23/22 History aerosol inhaler (Ventolin HFA) Shortness Of Breath Or Wheezing nitroglycerin 0.4 mg sublingual 0.4 mg sublingual UD PRN Angina 12/27/21 10/23/22 Rx tablet #30 tabs amlodipine 5 mg tablet 5 mg PO DAILY #90 tabs 05/04/22 10/23/22 Rx calcitriol 0.25 mcg capsule 0.25 mcg PO DAILY #90 caps 05/04/22 10/23/22 Rx isosorbide mononitrate 30 mg 30 mg PO BID #180 tabs 05/04/22 10/23/22 Rx tablet,extended release 24 hr carvedilol 12.5 mg tablet 12.5 mg PO BID #180 tabs 05/24/22 10/23/22 Rx insulin degludec 100 unit/mL (3 See Rx Instructions .Route 08/22/22 10/23/22 Rx mL) subcutaneous pen (Tresiba .COMPLEX #15 mL FlexTouch U-100 insulin) FreeStyle Lite Strips (blood sugar #200 ea 08/28/22 Rx diagnostic) insulin aspart U-100 100 unit/mL 0 unit subcut TID 10/23/22 10/23/22 History (3 mL) subcutaneous pen (Novolog FlexPen U-100 Insulin aspart) Patient History Medical History Anemia Asthma d/t asbestos--inhaler prn Atrial fibrillation takes aspirin daily--follows with Dr. Galindo Carpal tunnel syndrome, bilateral Cholelithiasis Chronic kidney disease, stage 2 (mild) Chronic kidney disease, stage 3 Coronary artery disease Diabetes mellitus with insulin therapy Diabetes mellitus, type 2 Diabetic nephropathy associated with type 2 diabetes mellitus Dyslipidemia History of diabetic retinopathy Hyperlipidemia Hypertension Hypertension Myocardial Infarction 2015 Pancreatitis Paroxysmal atrial fibrillation T2DM (type 2 diabetes mellitus) Vitamin D deficiency Surgical History History of cardiac cath 2015x2 @ [facility] in [place], [place]--4 stents placed History of colonoscopy History of endoscopic sinus surgery History of left inguinal hernia repair History of tooth extraction Hx of vasectomy Family History Father Myocardial infarction Cardiac disorder Hypertension Brother Cardiac disorder Hypertension Other No family history of adverse response to anesthesia Social History Smoking Status: Never smoker Second Hand Exposure: No; Do You Dip or Chew Tobacco: No; Tobacco Cessation Education Requested by Patient: No Hx Alcohol Use: No Hx Substance Use: No Preferred Language: [place] Islander Communication Ability: Effective Visual Impairment: Limited Hearing Ability: Normal [address] [place] Required: No Beliefs That Will Affect Care: Spiritism Spiritism Beliefs: Quaker/ Hinduism marital status: Current Living Situation: Significant Other current occupational status: employed 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 Diffuse wheezes and crackles. Using accessory muscles to breathe. Cardiovascular: Irregular rhythm with a tachycardic rate. Grade 2 out of 6 systolic murmur. No edema. Musculoskeletal: no cyanosis or clubbing, extremities motor strength 5/5 Neurologic: Cognition is intact. Speech is fluent (with respiratory distress), no focal deficits. No tremor. Psychiatric: A+Ox3, euthymic affect Results & Data Vital Signs (Past 12 Hours) Vital Signs Temp Pulse Pulse Resp BP Pulse Ox O2 Del Method 10/24/22 07:00 36.3 C L 105 H 16 133/79 95 Nasal Cannula 10/24/22 06:57 115 H 20 95 Nasal Cannula 10/24/22 06:37 103 H 138/84 10/24/22 06:15 103 H 136/88 96 Nasal Cannula 10/24/22 03:47 105 H 18 95 Nasal Cannula 10/24/22 02:14 36.5 C 102 H 20 115/68 96 Nasal Cannula 10/24/22 01:51 83 113/66 10/23/22 22:36 36.9 C 104 H 23 160/79 H 93 Nasal Cannula 10/23/22 22:00 Nasal Cannula 10/23/22 22:19 36.2 C L 100 H 20 155/82 H 95 Nasal Cannula O2 Flow Rate 10/24/22 07:00 4 10/24/22 06:57 4 10/24/22 06:37 10/24/22 06:15 4 10/24/22 03:47 4 10/24/22 02:14 4 10/24/22 01:51 10/23/22 22:36 4 10/23/22 22:00 4 10/23/22 22:19 4 PG Care Time/CCT Total # of Minutes Spent Total Time Spent with Patient: Total time spent is greater than 50% in coordination of care (as documented) at patient's floor/unit and/or counseling patient: Coding Level of Care Code 45104 IN/OBS CONSULT LVL 5,80M Diagnoses Acute non-ST elevation myocardial infarction (NSTEMI) I21.4 Atrial fibrillation I48.91 Atrial fibrillation type: unspecified ESRD (end stage renal disease) N18.6 Coronary artery disease I25.10 (2) Atrial fibrillation Atrial fibrillation type: unspecified Qualified Code(s): I48.91 - Unspecified atrial fibrillation
[2022-10-24] MEDS ORDERED: AMIODARONE / D5W 360 MG/200 ML BAG IV ONE ×2 (09:24→09:25)
--- NOTE | 2022-10-24 10:13 | Nephrology Consultation ---
Date of Consultation October 24, 2022 Assessment & Plan (1) ESRD (end stage renal disease): (2) Hyperkalemia: (3) Acute non-ST elevation myocardial infarction (NSTEMI): (4) Atrial fibrillation: (5) Hypertension: (6) Anemia: Plan ESRD secondary to microvascular disease with history of hypertension, diabetes, coronary artery disease, renal function has been declining over last few years and he has been ESRD for last few months. Creatinine was staying around 4 and since admission creatinine was staying around 4.5-4.6. Has all the stigmata of end-stage renal disease including hyperkalemia, metabolic acidosis, hyperphosphatemia and anemia. Admitted with NSTEMI, AFib with RVR, on heparin and amiodarone drip with a plan to do cardiac catheterization this afternoon. Potassium was 5.9. --Discussed with Jeramie that he pretty much reached end-stage renal disease. With NSTEMI requiring cardiac catheterization, multiple electrolyte abnormality, will need to start him on dialysis on an urgent basis via a temporary dialysis catheter. Eventually he will need a tunneled dialysis catheter and AV fistula once clinically stable. He understands and agreeable to the plan. appreciate Cardiology help with placing the temporary dialysis catheter. -- Veltassa 1 dose now and repeat potassium in the afternoon. -- left arm nephrology precaution for future vascular access -- dose medications for EGFR less than 10 -- will start on phosphate binder once diet resumed. Thank you for allowing me to participate in your patient's care. It was a pleasure to see Jeramie. History of Present Illness Reason for Consultation: ESRD, hyperkalemia, admitted with NSTEMI Attending Physician: Maurilio Mai MD History of Present Illness Mr. 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 at the nephrology consult was requested for management of end-stage renal disease and need for urgent dialysis. EMR records reviewed in detail during patient's visit. Jeramie presented to ER yesterday with 1 week history of progressive shortness of breath with exertion and even at rest. He also has been having substernal chest pain both and rest and with exertion with history of baseline angina and multivessel coronary artery disease. On admission his high sen trop of 626 was elevated which progressively increased. EKG with no ST-T changes but noted to be in AFib with RVR with prior history of paroxysmal AFib. Chest x-ray without significant pulmonary congestion or pleural effusion. He has extensive history of multivessel coronary artery disease S/P multivessel PCI with 4 MELISSA. Has history of paroxysmal AFib. He was started on heparin drip on admission. Seen by Cardiology this morning and started on amiodarone drip with tentative plan for cardiac catheterization this afternoon. Past medical history also significant for hypertension, diabetes and COPD. Has ESRD secondary to hypertension and microvascular disease, has been following with Dr. Kong. Last visit was in March when his creatinine was staying around 4. Has moderate degree proteinuria with diabetes. Prior paraproteinemia workup was unremarkable. Renal imaging was otherwise unremarkable. 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 never smoker, no known family history of CKD or ESRD. Since then he missed follow-up appointment. Previously JUAN JOSE-inhibitor was stopped because of repeated history of hyperkalemia. Since admission creatinine has been staying around 4.6-4.8 with hyperkalemia, metabolic acidosis and hyperphosphatemia. He reports voiding normally without major volume overload issues. Since admission he has been staying in AFib with RVR. Denies significant chest pain but has been having shortness of breath at rest, on 4 L NC O2. Allergies Allergy/AdvReac Type Severity Reaction Status Date / Time No Known Drug Allergies Allergy Verified 10/23/22 16:54 Home Medications Medication Instructions Recorded Confirmed Type atorvastatin 80 mg tablet 80 mg PO HS #90 tabs 09/16/21 10/23/22 Rx albuterol sulfate 90 mcg/actuation 1 - 2 puff inhalation Q6H PRN 09/29/21 10/23/22 History aerosol inhaler (Ventolin HFA) Shortness Of Breath Or Wheezing nitroglycerin 0.4 mg sublingual 0.4 mg sublingual UD PRN Angina 12/27/21 10/23/22 Rx tablet #30 tabs amlodipine 5 mg tablet 5 mg PO DAILY #90 tabs 05/04/22 10/23/22 Rx calcitriol 0.25 mcg capsule 0.25 mcg PO DAILY #90 caps 05/04/22 10/23/22 Rx isosorbide mononitrate 30 mg 30 mg PO BID #180 tabs 05/04/22 10/23/22 Rx tablet,extended release 24 hr carvedilol 12.5 mg tablet 12.5 mg PO BID #180 tabs 05/24/22 10/23/22 Rx insulin degludec 100 unit/mL (3 See Rx Instructions .Route 08/22/22 10/23/22 Rx mL) subcutaneous pen (Tresiba .COMPLEX #15 mL FlexTouch U-100 insulin) FreeStyle Lite Strips (blood sugar #200 ea 08/28/22 Rx diagnostic) insulin aspart U-100 100 unit/mL 0 unit subcut TID 10/23/22 10/23/22 History (3 mL) subcutaneous pen (Novolog FlexPen U-100 Insulin aspart) Patient History Medical History (Updated 10/24/22 @ 10:32 by Winter Interiano MD) Anemia Asthma d/t asbestos--inhaler prn Atrial fibrillation takes aspirin daily--follows with Dr. Galindo Carpal tunnel syndrome, bilateral Cholelithiasis Chronic kidney disease, stage 2 (mild) Chronic kidney disease, stage 3 Coronary artery disease Diabetes mellitus with insulin therapy Diabetes mellitus, type 2 Diabetic nephropathy associated with type 2 diabetes mellitus Dyslipidemia History of diabetic retinopathy Hyperkalemia Hyperlipidemia Hypertension Hypertension Myocardial Infarction 2015 Pancreatitis Paroxysmal atrial fibrillation T2DM (type 2 diabetes mellitus) Vitamin D deficiency Surgical History History of cardiac cath 2015x2 @ [facility] in [place], [place]--4 stents placed History of colonoscopy History of endoscopic sinus surgery History of left inguinal hernia repair History of tooth extraction Hx of vasectomy Family History Father Myocardial infarction Cardiac disorder Hypertension Brother Cardiac disorder Hypertension Other No family history of adverse response to anesthesia Social History Smoking Status: Never smoker Second Hand Exposure: No; Do You Dip or Chew Tobacco: No; Tobacco Cessation Education Requested by Patient: No Hx Alcohol Use: No Hx Substance Use: No Preferred Language: [place] Communication Ability: Effective Visual Impairment: Limited Hearing Ability: Normal Customer Assistant Required: No Beliefs That Will Affect Care: Scientology Scientology Beliefs: Adventist/ Temple marital status: Current Living Situation: Significant Other current occupational status: employed 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 Physical Exam Constitutional: WD/WN, vitals as above + acute distress and + ill appearing Eyes: + anicteric sclerae Neck: normal visual inspection Respiratory: + respiratory distress; no cough Auscultation: lungs clear to auscultation bilaterally Cardiovascular: Rate/Rhythm: + tachycardic and + irregularly irregular Extremities: no edema Gastrointestinal (Abdomen): Inspection/Auscultation: abdomen normal to inspection and normal bowel sounds Percussion/Palpation: abdomen soft; abdomen nontender Musculoskeletal: Extremities: extremities normal to inspection Skin: no rashes Neurologic: no focal motor deficits Psychiatric: Orientation: alert and oriented x 3 Affect: euthymic affect Results & Data Vital Signs (Past 12 Hours) Vital Signs Temp Pulse Pulse Resp BP Pulse Ox O2 Del Method 10/24/22 08:00 Nasal Cannula 10/24/22 07:00 36.3 C L 105 H 16 133/79 95 Nasal Cannula 10/24/22 06:57 115 H 20 95 Nasal Cannula 10/24/22 06:37 103 H 138/84 10/24/22 06:15 103 H 136/88 96 Nasal Cannula 10/24/22 03:47 105 H 18 95 Nasal Cannula 10/24/22 02:14 36.5 C 102 H 20 115/68 96 Nasal Cannula 10/24/22 01:51 83 113/66 10/23/22 22:36 36.9 C 104 H 23 160/79 H 93 Nasal Cannula 10/23/22 22:19 36.2 C L 100 H 20 155/82 H 95 Nasal Cannula O2 Flow Rate 10/24/22 08:00 4 10/24/22 07:00 4 10/24/22 06:57 4 10/24/22 06:37 10/24/22 06:15 4 10/24/22 03:47 4 10/24/22 02:14 4 10/24/22 01:51 10/23/22 22:36 4 10/23/22 22:19 4 PG Care Time/CCT Total # of Minutes Spent Total Time Spent with Patient: Total time spent is greater than 50% in coordination of care (as documented) at patient's floor/unit and/or counseling patient: Coding Level of Care Code 67570 INT INP/OBS CARE 3/75MIN Diagnoses ESRD (end stage renal disease) N18.6 Hyperkalemia E87.5 Acute non-ST elevation myocardial infarction (NSTEMI) I21.4 Atrial fibrillation I48.91 Atrial fibrillation type: unspecified Hypertension I10 Anemia D64.9 (4) Atrial fibrillation Atrial fibrillation type: unspecified Qualified Code(s): I48.91 - Unspecified atrial fibrillation
[2022-10-24] MEDS ORDERED: LIDOCAINE 1% LOCAL 20 ML VIAL ONE (10:21)
[2022-10-24] MEDS ORDERED: MIDAZOLAM HCL 1 MG/ML 2ML VIAL ONE (10:31)
[2022-10-24] MEDS ORDERED: fentaNYL citrate PF 100 MCG/2 ML VIAL ONE (10:31)
--- NOTE | 2022-10-24 10:45 | Electrocardiogram Report ---
Test Reason : Blood Pressure : / mmHG Vent. Rate : 095 BPM Atrial Rate : 095 BPM P-R Int : 000 ms QRS Dur : 154 ms QT Int : 406 ms P-R-T Axes : 000 000 119 degrees QTc Int : 510 ms Poor data quality, interpretation may be adversely affected Atrial fibrillation Left bundle branch block Abnormal ECG Confirmed by Kedar Henley ([id number]) on 10/24/2022 10:45:36 AM Referred By: REFERRED SELF Confirmed By:Faizan Henley
--- NOTE | 2022-10-24 10:48 | Electrocardiogram Report ---
Test Reason : Blood Pressure : / mmHG Vent. Rate : 086 BPM Atrial Rate : 105 BPM P-R Int : 000 ms QRS Dur : 150 ms QT Int : 404 ms P-R-T Axes : 000 -31 138 degrees QTc Int : 483 ms Poor data quality, interpretation may be adversely affected Atrial fibrillation Left axis deviation Left bundle branch block Abnormal ECG Confirmed by Kedar Henley ([id number]) on 10/24/2022 10:48:02 AM Referred By: REFERRED SELF Confirmed By:Faizan Henley
--- NOTE | 2022-10-24 10:55 | Electrocardiogram Report ---
Test Reason : Blood Pressure : / mmHG Vent. Rate : 105 BPM Atrial Rate : 104 BPM P-R Int : 000 ms QRS Dur : 158 ms QT Int : 334 ms P-R-T Axes : 000 203 015 degrees QTc Int : 441 ms Atrial fibrillation with rapid ventricular response Left bundle branch block Abnormal ECG When compared with ECG of 23-OCT-2022 19:15, (unconfirmed) Nonspecific T wave abnormality now evident in Inferior leads T wave inversion less evident in Lateral leads Confirmed by Kedar Henley ([id number]) on 10/24/2022 10:54:43 AM Referred By: REFERRED SELF Confirmed By:Faizan Henley
--- NOTE | 2022-10-24 11:46 | Post Anesthesia Assessment ---
Date of Service October 24, 2022 Post Sedation Assessment Vital Signs Temp Pulse Pulse Pulse Resp BP BP 10/24/22 08:00 10/24/22 07:00 36.3 C L 105 H 16 133/79 10/24/22 06:57 115 H 20 10/24/22 06:37 103 H 138/84 10/24/22 06:15 103 H 136/88 10/24/22 03:47 105 H 18 10/24/22 02:14 36.5 C 102 H 20 115/68 10/24/22 01:51 83 113/66 10/23/22 22:36 36.9 C 104 H 23 160/79 H 10/23/22 22:00 10/23/22 22:19 36.2 C L 100 H 20 155/82 H 10/23/22 20:07 79 10/23/22 21:10 98 H 21 10/23/22 21:00 89 24 10/23/22 21:00 134/78 10/23/22 20:50 87 20 10/23/22 20:43 10/23/22 20:30 85 22 10/23/22 20:30 137/97 10/23/22 20:20 89 20 10/23/22 20:10 91 H 20 10/23/22 20:00 96 H 21 10/23/22 20:00 127/84 10/23/22 19:50 87 17 10/23/22 19:40 89 21 10/23/22 19:30 97 H 18 10/23/22 19:30 132/81 10/23/22 19:28 82 19 10/23/22 19:28 148/100 H 10/23/22 19:20 98 H 17 10/23/22 19:10 92 H 19 10/23/22 20:51 92 H 10/23/22 19:00 81 23 10/23/22 18:50 92 H 21 10/23/22 18:40 91 H 21 10/23/22 18:30 93 H 17 10/23/22 18:20 84 23 10/23/22 18:11 89 10/23/22 18:11 140/85 10/23/22 18:10 22 10/23/22 18:00 28 H 10/23/22 17:50 96 H 26 H 10/23/22 17:40 89 19 10/23/22 17:30 93 H 25 H 10/23/22 17:27 153/101 H 10/23/22 17:27 91 H 21 10/23/22 17:20 93 H 10/23/22 17:10 90 25 H 10/23/22 17:00 90 10/23/22 16:50 91 H 23 10/23/22 16:40 83 24 10/23/22 16:30 89 23 10/23/22 16:24 77 20 10/23/22 16:34 61 10/23/22 14:53 36.1 C L 78 24 131/79 Pulse Ox O2 Del Method O2 Flow Rate 10/24/22 08:00 Nasal Cannula 4 10/24/22 07:00 95 Nasal Cannula 4 10/24/22 06:57 95 Nasal Cannula 4 10/24/22 06:37 10/24/22 06:15 96 Nasal Cannula 4 10/24/22 03:47 95 Nasal Cannula 4 10/24/22 02:14 96 Nasal Cannula 4 10/24/22 01:51 10/23/22 22:36 93 Nasal Cannula 4 10/23/22 22:00 Nasal Cannula 4 10/23/22 22:19 95 Nasal Cannula 4 10/23/22 20:07 10/23/22 21:10 96 10/23/22 21:00 95 10/23/22 21:00 10/23/22 20:50 96 10/23/22 20:43 95 10/23/22 20:30 93 10/23/22 20:30 10/23/22 20:20 92 10/23/22 20:10 93 10/23/22 20:00 92 10/23/22 20:00 10/23/22 19:50 92 10/23/22 19:40 92 10/23/22 19:30 92 10/23/22 19:30 10/23/22 19:28 93 10/23/22 19:28 10/23/22 19:20 93 10/23/22 19:10 93 10/23/22 20:51 96 Nasal Cannula 4 10/23/22 19:00 94 10/23/22 18:50 93 10/23/22 18:40 95 10/23/22 18:30 96 10/23/22 18:20 96 10/23/22 18:11 92 04/17/23 18:11 10/23/22 18:10 94 10/23/22 18:00 95 10/23/22 17:50 94 10/23/22 17:40 96 10/23/22 17:30 96 10/23/22 17:27 10/23/22 17:27 94 10/23/22 17:20 93 10/23/22 17:10 95 10/23/22 17:00 95 10/23/22 16:50 95 10/23/22 16:40 95 10/23/22 16:30 97 10/23/22 16:24 96 10/23/22 16:34 10/23/22 14:53 98 Room Air Recovery Score Activity: Moves 4 extremities Respiration: Deep Breath/Cough Circulation: +/-20% PreAnes Value Consciousness: Fully Awake Oxygen Saturation: > 92% On Room Air Discharge Sedation Level of Care: Fast Track Phase II Post Sedation Plan On clinical assessment, the patient appears to have tolerated the sedation without complications. Patient is recovering as anticipated. Patient will continue to be monitored by nursing and may be discharged when sedation discharge criteria are met per below protocol. Upon Completions of procedure up to 15 minutes continue every 5 minute vital s igns and the P.A.R. score; then discharge to a Phase I or Fast Track to Phase II per the following guidelines: * Discharge Patient to appropriate Phase II area if PAR is 8 or greater or return to pre- procedure baseline. The post - procedure orders will be as directed. * If PAR score is less than 8 or not return to pre-procedure baseline then patient will follow Phase I monitoring till PAR is reached for Phase II. The Phase I may be done in procedure room or may call to secure a Phase I area. * If naloxone or flumazenil are used for reversal, hold in Phase I for continued monitoring from when last reversal dose was given for a minimum of 60 minutes or longer pending the nurse and/or physician discretion of patient condition before discharge to Phase II. Please call the Sedation Physician to re-evaluate and complete post-note for discharge to Phase II area. Do NOT discharge from procedure sedation or Phase 1 until post- sedation evaluation note is complete by procedure /sedation MD Sedation Discharge Instructions to be given to the patient at discharge to home. [facility] [place] Procedure Codes (Charges) Indication for Procedure Indication for procedure: NSTEMI Afib ARF Sedation/Anesthesia Procedure 1: Sedation/Anesthesia: 17703 Mod Sedation by the same physician;Init15 Min Child Age 5 & Up (initial 15 min) Total Sedation Time (minutes): 32 Procedure 2: Sedation/Anesthesia: 44334 Mod Sedation by the same physician; Ea [id number] Minutes (additional 17 min) Total Sedation Time (minutes): 32
[2022-10-24] MEDS: PATIROMER CALCIUM SORBITEX 8.4 GM PACK PO SCH (13:25)
[2022-10-24 13:51] LABS: Hematocrit (blood only) 32.2 % (42.0-52.0); Hemoglobin 10.2 g/dl (14.0-18.0); Mean Corpuscular Hemoglobin 26.7 pg (25.0-34.0); Mean Corpuscular Hgb Conc 31.7 g/dL (32.0-36.0); Mean Corpuscular Volume 84.3 fL (80.0-100.0); Mean Platelet Volume 10.9 fL (9.4-12.4); Platelet Count 170 K/uL (130-400); RDW Coefficient of Variation 15.2 % (11.5-14.5); RDW Standard Deviation 46.8 fL (36.4-46.3); Red Blood Count 3.82 M/uL (4.70-6.10)
[2022-10-24 14:20] LABS: Partial Thromboplastin Ratio 1.7
--- NOTE | 2022-10-24 14:33 | XCELERA ---
[id number]
[2022-10-24] MEDS ORDERED: AMIODARONE / D5W 360 MG/200 ML BAG IV SCH (15:15)
[2022-10-24] MEDS: AMIODARONE / D5W 360 MG/200 ML BAG IV SCH (15:25)
--- NOTE | 2022-10-24 15:59 | Cardiac Catheterization ---
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 Cardiac Status Clinical evaluation leading to the procedure CAD Presenation: Non STEMI Anginal Classification: CCS IV Heart Failure: NYHA Class: CCS III Cardiogenic Shock within 24 Hours: No Cardiac Arrest within 24 Hours: No STEMI OR Non-STEMI Symptom Onset Date: 10/23/22 Coronary Anatomy Dominant: Right Left Main (% Stenosis): Ostial (50 to 60%) LAD (% Stenosis): Proximal (90%) and Distal (70%, APPLICATION SUPPORT ADMINISTRATOR near apex) Circumflex (% Stenosis): Ostial (30 to 40%) and Mid (100% APPLICATION SUPPORT ADMINISTRATOR (ISR S)) OM1 (% Stenosis): Proximal (95 to 99%) RCA (% Stenosis): Proximal (30 to 40%), Mid (Stent patent) and Distal (70%) R PDA (% Stenosis): Normal (Mild) R PL1 (% Stenosis): Normal (Mild) Ramus (% Stenosis): Ostial (100% (chronic total)) Diagnostic Physicians Name: Jeramie Salmeron MD, PhD Closure Device Percutaneous Entry Location: Right IJ and right femoral Closure Device: Angio-Seal Recommendations: Medical Therapy and/or Counseling and CABG Intraprocedure Events Significant Disection: No Perforation: No Cardiac Cath Procedure Full Procedure Date October 24, 2022 Pre-Procedure Diagnosis Pre-Procedure Diagnosis: Non STEMI, CHF (Acute renal failure) and Arrhythmia (Atrial fibrillation) AUC Score AUC Score: 8 Post-Procedure Diagnosis Post-Procedure Diagnosis: Severe CAD (Multivessel including chronic total occlusion) Procedure(s) Performed Procedure(s) Performed: Coronary Angiography, Ultrasound Guided Vascular Access and Procedure (Temporary dialysis catheter placement) Nuclear Officer Jeramie Salmeron MD, PhD Estimated Blood Loss Estimated Blood Loss: 15 mL Medication(s) Medication(s): Fentanyl, Lidocaine 1% and Versed Summary of Findings Brief description: Patient was brought to the cardiac catheterization suite where he was shaved and prepped in a sterile fashion. Sedated using IV Versed and fentanyl. Soft tissues of the right groin were anesthetized using 10 mL of 1% Xylocaine. Using ultrasound for guidance (image saved) the right femoral artery was accessed and a 5 Croatian femoral artery sheath was placed. We proceeded first with coronary angiography. Left coronary angiography was performed in orthogonal views with a 5 Croatian JL 4 diagnostic catheter. Right coronary angiography was performed in orthogonal views with a 5 Croatian JR4 diagnostic catheter. Diagnostic catheters were removed. We next proceeded with temporary dialysis catheter placement. Soft tissues of the right neck were anesthetized using 2 mL of 1% Xylocaine. Using the ultrasound for guidance (image saved), the right internal jugular vein was accessed with a micropuncture kit. Then, this was exchanged over 8.035 J- tip wire for the temporary dialysis dilators (x2). After predilatation, the temporary dialysis catheter was inserted over the wire and under fluoroscopic guidance positioned with the catheter tip just superior to the SVC/RA junction. Catheter was then flushed with normal saline after aspiration. Then, the ports were locked and the catheter was sutured in place. A sterile dressing was placed. Limited right femoral artery angiography was performed to evaluate for closure. Findings were favorable, therefore, the femoral artery sheath was exchanged for a 6 Croatian Angio-Seal closure device. This was deployed in the recommended fashion. We obtained immediate hemostasis and the patient remained hemodynamically stable. He was then returned to the recovery area. This ended the case. Coronary angiography findings: MLF-rraau-dgsorqy vessel which trifurcates into LAD, circumflex, and ramus. There is ostial to proximal 50 to 60% stenosis with mild pressure dampening on engagement. There is mild to moderate calcification throughout the left main and distally it appears to narrow with disease involving the ostia of the 3 major branch vessels. This likely represents a 40% narrowing. LAD: Medium to large in caliber, long and transapical. Ostial stenosis as an extension of the distal left main disease. Proximal segment is diffusely calcified disease with up to 90% stenosis just prior to a previously placed stent. The stent itself is widely patent. After the stent the mid segment has mild disease and there is a small caliber second diagonal which appears severely and diffusely diseased. Distal LAD has diffuse mild disease with a focal 70% stenosis as the vessel approaches the apex. The apical portion as it wraps the apex is severely and diffusely diseased. LCx: Ostial disease appears in some views to be 30 to 40% narrowed. Proximal vessel runs in the AV groove where it gives an atrial branch. There is a high arising large caliber and long OM1 which branches distally. This vessel has proximal 95 to 99% focal stenosis and mild luminal irregularities throughout. After the atrial branch the AV groove circumflex has extensive stenting which is 100% chronically occluded. The most distal circumflex fills via right to left collateralization demonstrating small caliber posterolateral branch and distal AV groove vessel. Ramus: There is a long vessel of relatively small caliber which represents either the ramus or a high arising first diagonal. This vessel is 100% occluded at the ostium and is seen to fill late via left to left collateralization. RCA: Medium to large caliber and dominant vessel. Proximally there is diffuse mild disease of up to 30 to 40% narrowing. The mid RCA has a previously placed stent which is widely patent. The distal vessel has mild disease and then at the bifurcation into the PDA and posterolateral branch is a focal 70% stenosis. The PDA is relatively large and the posterolateral branch is medium in size. These vessels have mild scattered disease. They provide right to left collateralization to the distal circumflex distribution. Summary and recommendations: 1. Severe multivessel coronary artery disease with progression from prior catheterization. No acute thrombotic lesions/culprit for ACS. 2. Successful placement of a right IJ temporary hemodialysis catheter 3. Continue guideline directed medical therapy for secondary prevention of coronary disease 4. Patient should be referred to tertiary center regarding complex revascula rization to include evaluation by cardiac surgery as well as the interventional cardiology team. A viability study may need to be considered prior to decision regarding appropriate revascularization strategy. Hemodynamics Rest Ao:: 92/47 mmHg, mean 65 mmHg Final Ao: 81/55 mmHg, mean 64 mmHg LV: Not performed Recommendations Recommendations: Medical Therapy and/or Counseling and CABG Radiation Exposure (mGy) 999 mGy, fluoroscopy time 2.1 minutes Contrast (mls) 80 mL Anesthesia 1 mg IV Versed, 25 mcg IV fentanyl Procedural Complication(s) None Disposition PCU I attest to the content of the Intraoperative Record and any orders documented therein. Any exceptions are noted below. [facility] [place] Card Cath Procedure Codes Cardiac Catheterization Procedure 1: Cardiovascular Cath Procedures: 13863 Coronaries Therapeutic Services & Ancillary Procedure 1: Cardiovascular Tx and Anc Procedures: 90217 Insertion Central Venous Catheter (Hemodialysis catheter, right IJ) Procedure 2: Cardiovascular Tx and Anc Procedures: 53964 Ultrasonic Guidance Vascular Access Moderate Sedation Procedure 1: Sedation/Anesthesia: 73607 Mod Sedation by the same physician;Init15 Min Child Age 5 & Up (Initial 15-minute (total 32 minutes)) Procedure 2: Sedation/Anesthesia: 07631 Mod Sedation by a different physician ;Init15 Min Child Age 5&Up (Additional 17 minutes (total 32 minutes)) PG Care Time/CCT Total # of Minutes Spent Total Time Spent with Patient: Total time spent is greater than 50% in coordination of care (as documented) at patient's floor/unit and/or counseling patient:
[2022-10-24] MEDS ORDERED: NITROGLYCERIN/D5W 100 MCG/ML BTL ONE (16:14)
[2022-10-24] MEDS: AZITHROMYCIN 500 MG in DEXTROSE 5% 250 ML IV SCH (17:31)
[2022-10-24 18:08] LABS: Hematocrit (blood only) 33.9 % (42.0-52.0); Mean Corpuscular Hemoglobin 26.8 pg (25.0-34.0); Mean Corpuscular Hgb Conc 32.4 g/dL (32.0-36.0); Mean Corpuscular Volume 82.7 fL (80.0-100.0); Mean Platelet Volume 10.9 fL (9.4-12.4); Platelet Count 180 K/uL (130-400); RDW Coefficient of Variation 15.1 % (11.5-14.5); RDW Standard Deviation 45.5 fL (36.4-46.3); White Blood Count 12.72 K/ul (4.8-10.8)
[2022-10-24] MEDS: ATORVASTATIN 40 MG TAB PO SCH (20:29)
[2022-10-25] MEDS: LEVALBUTEROL HCL 1.25 MG/3 ML NEB NEB SCH ×4 (00:18→19:19)
[2022-10-25 01:21] LABS: Hematocrit (blood only) 28.9 % (42.0-52.0); Hemoglobin 9.7 g/dl (14.0-18.0); Mean Corpuscular Hemoglobin 27.2 pg (25.0-34.0); Mean Corpuscular Hgb Conc 33.6 g/dL (32.0-36.0); Mean Corpuscular Volume 81.2 fL (80.0-100.0); Mean Platelet Volume 11.1 fL (9.4-12.4); Platelet Count 162 K/uL (130-400); RDW Coefficient of Variation 15.1 % (11.5-14.5); RDW Standard Deviation 45.1 fL (36.4-46.3); Red Blood Count 3.56 M/uL (4.70-6.10); White Blood Count 12.15 K/ul (4.8-10.8)
[2022-10-25] MEDS: HEPARIN SODIUM/DEXTROSE 25,000 UNITS/500 ML BAG IV SCH ×3 (01:40→23:26)
[2022-10-25] MEDS: INSULIN ASPART PER UNIT CHARGE SC SCH ×5 (03:46→22:20)
[2022-10-25] MEDS: AMIODARONE / D5W 360 MG/200 ML BAG IV SCH (05:33)
[2022-10-25] MEDS: guaiFENesin SUGAR FREE 200 MG/10 ML UDC PO SCH ×4 (05:44→23:26)
[2022-10-25 06:16] LABS: Albumin Globulin Ratio 1.3 (0.9-2); Albumin Level 3.1 gm/dl (3.4-5.0); BUN Creatinine Ratio 20.9 (10-20); Bilirubin,Total 0.4 mg/dl (0.2-1.0); Calcium 7.8 mg/dl (8.6-10.3); Creatinine Clr Calc Pharmacy 15.8 ml/min; Est GFR (Non-African American) 12.9 ml/min; Globulin 2.4 gm/dl (2.5-4.0); Phosphorus 5.4 mg/dl (2.5-4.9); Potassium 4.7 mmol/L (3.5-5.1); Total Protein 5.5 gm/dl (6.0-8.3)
[2022-10-25 06:58] LABS: Partial Thromboplastin Ratio 1.6; Partial Thromboplastin Time 44.6 Seconds (21.0-31.0)
[2022-10-25] MEDS: LANTUS PER UNIT CHARGE SC SCH (08:16)
[2022-10-25] MEDS: methylPREDNISolone 60 MG in SYRINGE 0 ML IV SCH (08:16)
[2022-10-25] MEDS: PANTOprazole 40 MG in SYRINGE 0 ML IV SCH (08:16)
[2022-10-25] MEDS: FAMOTIDINE 20 MG TAB PO SCH (08:17)
[2022-10-25] MEDS: CALCITRIOL 0.25 MCG CAPSULE PO SCH (08:17)
[2022-10-25 08:22] LABS: HBSAG NON-REACTIVE (NON-REACTIVE); Hepatitis B Core Antibody IgM NON-REACTIVE (NON-REACTIVE); Hepatitis B Surface Ab, Quant <5 mIU/mL (> OR = 10)
--- NOTE | 2022-10-25 09:45 | Nephrology Progress Note ---
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 Creatinine was staying around 4 and since admission creatinine was staying around 4.5-4.6. Has all the stigmata of end-stage renal disease including hyperkalemia, metabolic acidosis, hyperphosphatemia and anemia. Admitted with NSTEMI, AFib with RVR, had cardiac catheterization on 10/24/22 showing multivessel coronary artery disease, will need CABG, [place] [facility] [place] via temporary dialysis catheter for now. Eventually will need tunneled dialysis catheter. --aim for 1 l UF -- left arm nephrology precaution for future vascular access -- dose medications for EGFR less than 10 -- start on Renal cap and phos binder. -- case management consulted for outpatient dialysis set up at [facility]. Admission and Anticipated Discharge Date Admission Date: October 23, 2022 Darius Bobo Has been tolerating dialysis, currently getting 2nd dialysis treatment, Tolerating UF goal of 1 L. Blood pressure staying relatively stable. Denies chest pain or shortness of breath. Review of Systems Review of Systems: Detailed review of system was otherwise unremarkable except mentioned above. Physical Exam Constitutional: WD/WN, vitals as above + ill appearing Eyes: + anicteric sclerae Neck: normal visual inspection Respiratory: no cough Auscultation: lungs clear to auscultation bilaterally Cardiovascular: Rate/Rhythm: + irregularly irregular Extremities: no edema Skin: no rashes Neurologic: no focal motor deficits Psychiatric: Orientation: alert and oriented x 3 Affect: euthymic affect Results & Data Vital Signs (Past 12 Hours) Vital Signs Temp Pulse Pulse Pulse Resp BP Pulse Ox 10/25/22 09:30 87 143/78 H 10/25/22 09:00 82 18 152/83 H 92 10/25/22 09:00 83 152/83 H 10/25/22 08:30 81 149/99 H 10/25/22 08:00 79 139/85 10/25/22 08:00 36.5 C 10/25/22 07:30 80 131/77 10/25/22 07:13 79 136/78 10/25/22 07:24 78 19 96 10/25/22 07:00 36.5 C 80 10/25/22 07:48 10/25/22 06:30 74 18 94 10/25/22 06:30 133/83 10/25/22 06:15 74 19 93 10/25/22 06:00 77 22 96 10/25/22 06:00 144/87 H 10/25/22 05:45 76 23 96 10/25/22 05:30 74 21 96 10/25/22 05:30 135/85 10/25/22 05:15 71 19 95 10/25/22 05:15 133/79 10/25/22 05:00 73 18 91 10/25/22 05:00 116/69 10/25/22 04:45 69 20 89 L 10/25/22 04:30 68 19 90 10/25/22 04:16 68 17 90 10/25/22 04:15 68 19 91 10/25/22 04:00 69 18 92 10/25/22 04:00 105/67 10/25/22 03:45 72 22 10/25/22 03:45 112/71 10/25/22 03:30 70 18 92 10/25/22 03:30 121/73 10/25/22 03:16 72 20 90 10/25/22 03:16 103/63 10/25/22 03:15 71 26 H 89 L 10/25/22 03:00 67 19 91 10/25/22 03:00 103/60 10/25/22 02:45 69 17 10/25/22 02:30 72 22 92 10/25/22 02:30 122/77 10/25/22 02:15 68 18 10/25/22 02:15 105/62 10/25/22 02:00 69 19 93 10/25/22 01:45 72 19 92 10/25/22 01:45 111/65 10/25/22 01:30 70 18 93 10/25/22 01:30 110/61 10/25/22 01:15 69 18 93 10/25/22 01:15 105/59 L 10/25/22 01:00 71 18 94 10/25/22 00:45 74 16 91 10/25/22 00:45 116/88 10/25/22 00:30 74 17 10/25/22 00:15 75 19 91 10/25/22 00:00 81 20 90 10/24/22 23:45 79 19 90 10/24/22 23:45 125/73 10/24/22 23:30 78 19 10/24/22 23:30 123/70 10/25/22 03:47 36.7 C 10/25/22 00:00 80 10/24/22 23:15 76 19 92 10/24/22 23:00 79 18 95 10/24/22 22:45 82 20 96 10/24/22 22:30 84 26 H 94 10/24/22 22:30 132/77 10/24/22 22:16 85 20 92 10/24/22 22:16 132/82 10/24/22 22:15 84 21 92 10/24/22 22:00 72 18 95 10/24/22 21:45 74 19 95 10/24/22 21:45 123/65 10/24/22 23:25 36.9 C 10/24/22 21:53 O2 Del Method O2 Del Method O2 Flow Rate O2 Flow Rate 10/25/22 09:30 10/25/22 09:00 Nasal Cannula 2 10/25/22 09:00 10/25/22 08:30 10/25/22 08:00 10/25/22 08:00 10/25/22 07:30 10/25/22 07:13 10/25/22 07:24 Nasal Cannula 2 10/25/22 07:00 10/25/22 07:48 Nasal Cannula 2 10/25/22 06:30 10/25/22 06:30 10/25/22 06:15 10/25/22 06:00 10/25/22 06:00 10/25/22 05:45 10/25/22 05:30 10/25/22 05:30 10/25/22 05:15 10/25/22 05:15 10/25/22 05:00 10/25/22 05:00 10/25/22 04:45 10/25/22 04:30 10/25/22 04:16 10/25/22 04:15 10/25/22 04:00 10/25/22 04:00 10/25/22 03:45 10/25/22 03:45 10/25/22 03:30 10/25/22 03:30 10/25/22 03:16 10/25/22 03:16 10/25/22 03:15 10/25/22 03:00 10/25/22 03:00 10/25/22 02:45 10/25/22 02:30 10/25/22 02:30 10/25/22 02:15 10/25/22 02:15 10/25/22 02:00 10/25/22 01:45 10/25/22 01:45 10/25/22 01:30 10/25/22 01:30 10/25/22 01:15 10/25/22 01:15 10/25/22 01:00 10/25/22 00:45 10/25/22 00:45 10/25/22 00:30 10/25/22 00:15 10/25/22 00:00 10/24/22 23:45 10/24/22 23:45 10/24/22 23:30 10/24/22 23:30 10/25/22 03:47 10/25/22 00:00 10/24/22 23:15 10/24/22 23:00 10/24/22 22:45 10/24/22 22:30 10/24/22 22:30 10/24/22 22:16 10/24/22 22:16 10/24/22 22:15 10/24/22 22:00 10/24/22 21:45 10/24/22 21:45 10/24/22 23:25 10/24/22 21:53 Nasal Cannula 2 PG Care Time/CCT Total # of Minutes Spent Total Time Spent with Patient: Total time spent is greater than 50% in coordination of care (as documented) at patient's floor/unit and/or counseling patient: Coding Level of Care Code 99137 SUB INP/OBS CARE 3/50MIN Diagnoses ESRD (end stage renal disease) N18.6 Hyperkalemia E87.5 Acute non-ST elevation myocardial infarction (NSTEMI) I21.4 Atrial fibrillation I48.91 Atrial fibrillation type: unspecified Hypertension I10 Anemia D64.9 (4) Atrial fibrillation Atrial fibrillation type: unspecified Qualified Code(s): I48.91 - Unspecified atrial fibrillation
[2022-10-25] MEDS: carvediloL 12.5 MG TAB PO SCH ×2 (10:34→22:11)
[2022-10-25] MEDS: PATIROMER CALCIUM SORBITEX 8.4 GM PACK PO SCH (10:35)
--- NOTE | 2022-10-25 13:12 | Electrocardiogram Report ---
Test Reason : Blood Pressure : / mmHG Vent. Rate : 066 BPM Atrial Rate : 066 BPM P-R Int : 216 ms QRS Dur : 158 ms QT Int : 486 ms P-R-T Axes : 076 -11 137 degrees QTc Int : 509 ms Sinus rhythm with 1st degree A-V block Left bundle branch block Abnormal ECG When compared with ECG of 24-OCT-2022 07:28, Sinus rhythm has replaced Atrial fibrillation Vent. rate has decreased BY 39 BPM QRS axis Shifted right Criteria for Inferior infarct are no longer Present T wave inversion more evident in Lateral leads QT has lengthened Confirmed by Kedar Henley ([id number]) on 10/25/2022 1:12:03 PM Referred By: REFERRED SELF Confirmed By:Faizan Henley
--- NOTE | 2022-10-25 13:15 | Electrocardiogram Report ---
Test Reason : Blood Pressure : / mmHG Vent. Rate : 086 BPM Atrial Rate : 086 BPM P-R Int : 204 ms QRS Dur : 156 ms QT Int : 446 ms P-R-T Axes : 088 -16 135 degrees QTc Int : 533 ms Normal sinus rhythm Left bundle branch block Abnormal ECG When compared with ECG of 24-OCT-2022 13:16, (unconfirmed) No significant change was found Confirmed by Kedar Henley ([id number]) on 10/25/2022 1:15:25 PM Referred By: REFERRED SELF Confirmed By:Faizan Henley
--- NOTE | 2022-10-25 14:01 | Pharmacy Report ---
Pharmacy Glycemic Short Note 2 - Date of Service October 25, 2022 - Glycemic Short BSG Results (Last 24 hours): 10/24/22 10/24/22 10/24/22 16:37 19:52 19:53 Glucose POC Glucose 160 H 356 H* 344 H* 10/24/22 10/25/22 10/25/22 23:50 03:43 05:36 Glucose 119 H POC Glucose 234 H 115 H 10/25/22 11:02 Glucose POC Glucose 146 H OUTPATIENT ANTIDIABETIC REGIMEN: * Tresiba 10 units, Novolog SSI (2-4 units per meals per DM Endo notes) ASSESSMENT: 10/25 * Patient BSG elevated last PM after dinner. Correction factor and carb ratio tightened with good down trend * Fasting 115 mg/dL- continue lantus 10 units daily * Patient awaiting transfer to [place]. 10/23 * 72 year old admitted with afib, ESRD - pharmacy consulted for glycemic management. Started patient on stress of 2 novolog - unclear of PO intake at this time. Opted to hold basal for HS tonight * Will reevaluate basal insulin tomorrow AM PLAN FOR INPATIENT GLYCEMIC CONTROL: * Hold outpatient oral diabetes medications * Basal insulin * Lantus - 10 units qAM * Bolus insulin * NovoLog per scale ACHS or Q6hrs while NPO * Goal Range: Low 110 mg/dL - High 140 mg/dL * Correction Factor: 25 mg/dL/unit * Nutritional / Prandial insulin per carb ratio of 1 unit per 9 grams CHO consumed
[2022-10-25 14:14] LABS: Partial Thromboplastin Ratio 2.2
[2022-10-25 14:18] LABS: Partial Thromboplastin Time 61.5 Seconds (21.0-31.0)
[2022-10-25] MEDS: AZITHROMYCIN 500 MG in DEXTROSE 5% 250 ML IV SCH (17:00)
--- NOTE | 2022-10-25 17:04 | Cardiology Progress Note ---
Date of Service October 25, 2022 Assessment & Plan (1) Acute non-ST elevation myocardial infarction (NSTEMI): Plan: Most likely type II as it was no evidence of thrombus, plaque rupture, etc. He does have severe multivessel coronary disease including chronic total occlusion of the circumflex. Recommend revascularization evaluation at tertiary center regarding surgical versus percutaneous options. We will optimize his medical therapy for secondary prevention. Continue carvedilol and atorvastatin. Begin low-dose aspirin. Since he is now anticipated to be hemodialysis dependent I would also consider addition of JUAN JOSE inhibitor or angiotensin receptor dario for its myocardial protective effects. (2) SOB (shortness of breath): Plan: Patient has ischemic cardiomyopathy and evidence of fluid overload. This has been improved now without significant fluid overload. Continue to manage volume by dialysis and may need furosemide long-term. He has chronic heart failure regimen would then include carvedilol, JUAN JOSE/ARB/Entresto, and loop diuretic. May need to consider SGLT2 inhibitor as well has adenosine. These decisions will be left to his primary turret punch operator. (3) Atrial fibrillation: Plan: Paroxysmal. No recurrence. Does not need amiodarone at this time. He should be initiated on oral anticoagulation. I recommend Eliquis 5 mg p.o. twice daily given his renal function. The heparin will need to be stopped and we may want to wait until his final dialysis session is over. (4) Dyslipidemia: Plan: Patient is high risk. He is on a atorvastatin 80 mg daily. This will continue. Annual lipid panel and titration of his regimen to achieve aggressive LDL reduction. (5) Hypertension: Plan: Blood pressure is upper limit of acceptable. No changes at this time. Recommendations regarding heart failure regimen will also affect his blood pressure regimen. Again, primary turret punch operator can decide on approach. Admission and Anticipated Discharge Date Admission Date: October 23, 2022 Subjective Patient states he is currently without chest pain or shortness of breath. Overall feels much better. However, he does admit that during dialysis he does get some chest pressure. He was seen briefly by his primary turret punch operator today. He has undergone hemodialysis and will have an additional session tomorrow. He has had no recurrence of his atrial fibrillation. After discussion of risks of bleeding versus risk of stroke he has agreed to continue with oral anticoagulation upon discharge. He voices no other complaints or concerns at this time. His breathing is much improved. Review of Systems 2 Review of Systems: Negative except as per HPI Physical Exam Constitutional: WD/WN, vitals as above Eyes: Extraocular muscle intact. Sclera anicteric. ENMT: Oral mucosa is pink moist and intact. Neck: No JVD Respiratory: Clear to auscultation bilaterally. No wheezing, rhonchi, or rales appreciated Cardiovascular: Regular rate and rhythm. Sinus rhythm on the monitor. S4 gallop. Grade 2 out of 6 systolic murmur. Musculoskeletal: no cyanosis or clubbing, extremities motor strength 5/5 (Femoral access site is intact. No mass or bruits.) Neurologic: Cognition is intact. Speech is fluent. No focal deficits. Psychiatric: A+Ox3, euthymic affect Results & Data Vital Signs (Past 12 Hours) Vital Signs Temp Pulse Pulse Pulse Pulse Resp BP 10/25/22 16:00 82 22 142/84 H 10/25/22 15:14 143/79 H 10/25/22 16:01 36.7 C 10/25/22 14:00 74 18 112/55 L 10/25/22 13:00 79 19 121/62 10/25/22 12:00 86 27 H 114/80 10/25/22 12:04 87 20 10/25/22 11:00 91 H 19 152/93 H 10/25/22 11:10 36.6 C 10/25/22 10:16 36.5 C 81 10/25/22 10:00 81 17 141/75 H 10/25/22 10:00 75 141/75 H 10/25/22 09:30 87 143/78 H 10/25/22 09:00 82 18 152/83 H 10/25/22 09:00 83 152/83 H 10/25/22 08:30 81 149/99 H 10/25/22 08:00 79 139/85 10/25/22 08:00 36.5 C 10/25/22 07:30 80 131/77 10/25/22 07:13 79 136/78 10/25/22 07:24 78 19 10/25/22 07:00 36.5 C 80 10/25/22 07:48 10/25/22 06:30 74 18 10/25/22 06:30 133/83 10/25/22 06:15 74 19 10/25/22 06:00 77 22 04/19/23 06:00 144/87 H 10/25/22 05:45 76 23 10/25/22 05:30 74 21 10/25/22 05:30 135/85 10/25/22 05:15 71 19 10/25/22 05:15 133/79 BP Pulse Ox O2 Del Method O2 Flow Rate 10/25/22 16:00 96 Nasal Cannula 2 10/25/22 15:14 95 Nasal Cannula 2 10/25/22 16:01 10/25/22 14:00 95 Nasal Cannula 2 10/25/22 13:00 95 Nasal Cannula 2 10/25/22 12:00 92 Room Air 10/25/22 12:04 93 Nasal Cannula 2 10/25/22 11:00 93 Nasal Cannula 2 10/25/22 11:10 10/25/22 10:16 143/71 H 10/25/22 10:00 95 Room Air 10/25/22 10:00 10/25/22 09:30 10/25/22 09:00 92 Nasal Cannula 2 10/25/22 09:00 10/25/22 08:30 10/25/22 08:00 10/25/22 08:00 10/25/22 07:30 10/25/22 07:13 10/25/22 07:24 96 Nasal Cannula 2 10/25/22 07:00 10/25/22 07:48 Nasal Cannula 2 10/25/22 06:30 94 10/25/22 06:30 10/25/22 06:15 93 10/25/22 06:00 96 10/25/22 06:00 10/25/22 05:45 96 10/25/22 05:30 96 10/25/22 05:30 10/25/22 05:15 95 10/25/22 05:15 PG Care Time/CCT Total # of Minutes Spent Total Time Spent with Patient: Total time spent is greater than 50% in coordination of care (as documented) at patient's floor/unit and/or counseling patient: Coding Level of Care Code 57912 SUB INP/OBS CARE 3/50MIN Diagnoses Acute non-ST elevation myocardial infarction (NSTEMI) I21.4 SOB (shortness of breath) R06.02 Atrial fibrillation I48.91 Atrial fibrillation type: unspecified Dyslipidemia E78.5 Hypertension I10 (3) Atrial fibrillation Atrial fibrillation type: unspecified Qualified Code(s): I48.91 - Unspecified atrial fibrillation
--- NOTE | 2022-10-25 18:06 | Hospitalist Progress Note ---
Date of Service October 25, 2022 Assessment & Plan (1) Acute non-ST elevation myocardial infarction (NSTEMI): Plan: Patient presented with chest pain and his troponin went up from 500s to 700s. He had acute non-ST elevation RI Decision was made to proceed towards cardiac catheterization and then dialysis after Cardiac catheterization on 10/24 showed general worsening of his coronary disease but no particular culprit blood vessel that was intervenable. Cardio logy recommends outpatient follow-up with tertiary care center to consider revascularization. For the time being, continue medical management. Continue heparin drip to complete 48 hours Continue Lipitor 80, Coreg 12.5 twice daily. Nitro drip is being discontinued and will start on oral Imdur 30 mg Cardiology on board (2) Atrial fibrillation: Plan: -Hx of Paroxysmal Afib, not previously on AC as he is typically in NSR and the patient wanted to try and avoid bleeding risks -Patient now persistently in afib, HR currently fairly-controlled -Continue heparin drip for now May switch to Eliquis after 48 hours completed. Awaiting cardiology recommendation. No more on amiodarone as he has converted to sinus rhythm (3) SOB (shortness of breath): Plan: -Likely multifactorial at time including possible COPD exacerbation, afib/NSTEMI, and anxiety -The patient is without leukocytosis or focal consolidation on CXR, was wheezing throughout on exam -Was recently around his Grandson last week who had a UR. Respiratory viral panel negative -For now will treat as a COPD exacerbation with Azithromycin, switch IV Solu- Medrol to p.o., QID DuoNebs, incentive spirometry, and flutter therapy -Prn O2 to keep SpO2 between 88-92% with his COPD (4) Chest pain: Plan: -See elevated trop and SOB (5) ESRD (end stage renal disease): Plan: -Cr today at 4.5, baseline over the past year appears closer to 4.2-4.3 -Follows with Dr. Kong of [facility] Nephro Patient was started on dialysis using a temporary catheter Patient will eventually need a more permanent access (6) Hypertension: Plan: -Stable -Continue amlodipine and Carvedilol (7) T2DM (type 2 diabetes mellitus): Plan: -Monitor BSG ACHS for now, goal is 110-140 -Will start with conservative regimen due to his currently controlled BSG and ESRD -Hold basal insulin for now, CF of 50 and CR of 15 -Adjust regimen as needed -Pharmacy Glyemic consult ordered due to starting steroid for possible COPD exacerbation (8) Coronary artery disease: Plan: Please see above (9) Dyslipidemia: Plan: -Continue atorvastatin (10) Elevated troponin: Admission and Anticipated Discharge Date Admission Date: October 23, 2022 Subjective Patient had cardiac catheterization done yesterday. Underwent dialysis yesterday. Currently is chest pain-free. Review of Systems Review of Systems: All systems reviewed & are unremarkable except as noted in Subjective Physical Exam Physical Exam: General: Awake, conversant. Appears calm. No distress. Heart: S1, S2/regular rate and rhythm, no murmur rubs or gallops Lungs: Clear to auscultation bilaterally. Normal effort Abdomen: Soft/nontender/nondistended. No hepatosplenomegaly Extremities: No clubbing/cyanosis. No edema Behavior: Appropriate, cooperative Results & Data Results & Data Vital Signs (Past 12 Hours) Vital Signs Temp Pulse Pulse Pulse Pulse Resp BP 10/25/22 17:00 90 17 145/79 H 10/25/22 16:00 82 22 142/84 H 10/25/22 15:14 143/79 H 10/25/22 16:01 36.7 C 10/25/22 14:00 74 18 112/55 L 10/25/22 13:00 79 19 121/62 10/25/22 12:00 86 27 H 114/80 10/25/22 12:04 87 20 10/25/22 11:00 91 H 19 152/93 H 10/25/22 11:10 36.6 C 10/25/22 10:16 36.5 C 81 10/25/22 10:00 81 17 141/75 H 10/25/22 10:00 75 141/75 H 10/25/22 09:30 87 143/78 H 10/25/22 09:00 82 18 152/83 H 10/25/22 09:00 83 152/83 H 10/25/22 08:30 81 149/99 H 10/25/22 08:00 79 139/85 10/25/22 08:00 36.5 C 10/25/22 07:30 80 131/77 10/25/22 07:13 79 136/78 04/19/23 07:24 78 19 10/25/22 07:00 36.5 C 80 10/25/22 07:48 10/25/22 06:30 74 18 10/25/22 06:30 133/83 10/25/22 06:15 74 19 10/25/22 06:00 77 22 10/25/22 06:00 144/87 H BP Pulse Ox O2 Del Method O2 Flow Rate 10/25/22 17:00 96 Nasal Cannula 2 10/25/22 16:00 96 Nasal Cannula 2 10/25/22 15:14 95 Nasal Cannula 2 10/25/22 16:01 10/25/22 14:00 95 Nasal Cannula 2 10/25/22 13:00 95 Nasal Cannula 2 10/25/22 12:00 92 Room Air 10/25/22 12:04 93 Nasal Cannula 2 10/25/22 11:00 93 Nasal Cannula 2 10/25/22 11:10 10/25/22 10:16 143/71 H 10/25/22 10:00 95 Room Air 10/25/22 10:00 10/25/22 09:30 10/25/22 09:00 92 Nasal Cannula 2 10/25/22 09:00 10/25/22 08:30 10/25/22 08:00 10/25/22 08:00 10/25/22 07:30 10/25/22 07:13 10/25/22 07:24 96 Nasal Cannula 2 10/25/22 07:00 10/25/22 07:48 Nasal Cannula 2 10/25/22 06:30 94 10/25/22 06:30 10/25/22 06:15 93 10/25/22 06:00 96 10/25/22 06:00 Laboratory Results Abnormal lab results 10/24/22 10/24/22 10/24/22 Range/Units 13:10 17:47 17:47 WBC 12.72 H (4.8-10.8) K/ul RBC 4.10 L (4.70-6.10) M/uL Hgb 11.0 L (14.0-18.0) g/dl Hct 33.9 L (42.0-52.0) % RDW Coeff of Jocelyn 15.1 H (11.5-14.5) % APTT (21.0-31.0) Seconds BUN (6-23) mg/dl Creatinine (0.6-1.4) mg/dl BUN/Creatinine Ratio (10-20) Glucose (70-99(Fasting)) mg/dl POC Glucose (70-99) mg/dl Calcium (8.6-10.3) mg/dl Phosphorus (2.5-4.9) mg/dl Troponin I High Sens 9384.9 H* D (0-20) pg/ml Total Protein (6.0-8.3) gm/dl Albumin (3.4-5.0) gm/dl Globulin (2.5-4.0) gm/dl Hep Bs Antibody, Quant <5 L (> OR = 10) mIU/mL 10/24/22 10/24/22 10/24/22 Range/Units 19:52 19:53 23:50 WBC (4.8-10.8) K/ul RBC (4.70-6.10) M/uL Hgb (14.0-18.0) g/dl Hct (42.0-52.0) % RDW Coeff of Jocelyn (11.5-14.5) % APTT (21.0-31.0) Seconds BUN (6-23) mg/dl Creatinine (0.6-1.4) mg/dl BUN/Creatinine Ratio (10-20) Glucose (70-99(Fasting)) mg/dl POC Glucose 356 H* 344 H* 234 H (70-99) mg/dl Calcium (8.6-10.3) mg/dl Phosphorus (2.5-4.9) mg/dl Troponin I High Sens (0-20) pg/ml Total Protein (6.0-8.3) gm/dl Albumin (3.4-5.0) gm/dl Globulin (2.5-4.0) gm/dl Hep Bs Antibody, Quant (> OR = 10) mIU/mL 10/25/22 10/25/22 10/25/22 Range/Units 00:35 00:35 03:43 WBC 12.15 H (4.8-10.8) K/ul RBC 3.56 L (4.70-6.10) M/uL Hgb 9.7 L (14.0-18.0) g/dl Hct 28.9 L (42.0-52.0) % RDW Coeff of Jocelyn 15.1 H (11.5-14.5) % APTT (21.0-31.0) Seconds BUN (6-23) mg/dl Creatinine (0.6-1.4) mg/dl BUN/Creatinine Ratio (10-20) Glucose (70-99(Fasting)) mg/dl POC Glucose 115 H (70-99) mg/dl Calcium (8.6-10.3) mg/dl Phosphorus (2.5-4.9) mg/dl Troponin I High Sens 16579.3 H* D (0-20) pg/ml Total Protein (6.0-8.3) gm/dl Albumin (3.4-5.0) gm/dl Globulin (2.5-4.0) gm/dl Hep Bs Antibody, Quant (> OR = 10) mIU/mL 10/25/22 10/25/22 10/25/22 Range/Units 05:36 05:36 05:36 WBC (4.8-10.8) K/ul RBC (4.70-6.10) M/uL Hgb (14.0-18.0) g/dl Hct (42.0-52.0) % RDW Coeff of Jocelyn (11.5-14.5) % APTT 44.6 H (21.0-31.0) Seconds BUN 90 H (6-23) mg/dl Creatinine 4.30 H (0.6-1.4) mg/dl BUN/Creatinine Ratio 20.9 H (10-20) Glucose 119 H (70-99(Fasting)) mg/dl POC Glucose (70-99) mg/dl Calcium 7.8 L (8.6-10.3) mg/dl Phosphorus 5.4 H (2.5-4.9) mg/dl Troponin I High Sens 17027.8 H* D (0-20) pg/ml Total Protein 5.5 L (6.0-8.3) gm/dl Albumin 3.1 L (3.4-5.0) gm/dl Globulin 2.4 L (2.5-4.0) gm/dl Hep Bs Antibody, Quant (> OR = 10) mIU/mL 10/25/22 10/25/2223 Range/Units 11:02 13:02 15:56 WBC (4.8-10.8) K/ul RBC (4.70-6.10) M/uL Hgb (14.0-18.0) g/dl Hct (42.0-52.0) % RDW Coeff of Jocelyn (11.5-14.5) % APTT 61.5 H* (21.0-31.0) Seconds BUN (6-23) mg/dl Creatinine (0.6-1.4) mg/dl BUN/Creatinine Ratio (10-20) Glucose (70-99(Fasting)) mg/dl POC Glucose 146 H 260 H (70-99) mg/dl Calcium (8.6-10.3) mg/dl Phosphorus (2.5-4.9) mg/dl Troponin I High Sens (0-20) pg/ml Total Protein (6.0-8.3) gm/dl Albumin (3.4-5.0) gm/dl Globulin (2.5-4.0) gm/dl Hep Bs Antibody, Quant (> OR = 10) mIU/mL PG Care Time/CCT Total # of Minutes Spent Total Time Spent with Patient: Total time spent is greater than 50% in coordination of care (as documented) at patient's floor/unit and/or counseling patient: Coding Level of Care Code 16026 SUB INP/OBS CARE 2/35MIN Diagnoses Acute non-ST elevation myocardial infarction (NSTEMI) I21.4 Atrial fibrillation I48.91 Atrial fibrillation type: unspecified SOB (shortness of breath) R06.02 Chest pain R07.9 ESRD (end stage renal disease) N18.6 Hypertension I10 T2DM (type 2 diabetes mellitus) E11.9 Coronary artery disease I25.10 Dyslipidemia E78.5 Elevated troponin R77.8 (2) Atrial fibrillation Atrial fibrillation type: unspecified Qualified Code(s): I48.91 - Unspecified atrial fibrillation
[2022-10-25] MEDS: PANTOprazole 40 MG TAB PO SCH (22:10)
[2022-10-25] MEDS: ATORVASTATIN 40 MG TAB PO SCH (22:11)
[2022-10-26] MEDS: LEVALBUTEROL HCL 1.25 MG/3 ML NEB NEB SCH ×5 (00:10→20:00)
[2022-10-26] MEDS: HEPARIN SODIUM/DEXTROSE 25,000 UNITS/500 ML BAG IV SCH ×2 (03:26→13:24)
[2022-10-26] MEDS: guaiFENesin SUGAR FREE 200 MG/10 ML UDC PO SCH ×3 (04:36→18:46)
[2022-10-26 06:29] LABS: Basophils # (auto) 0.01 K/uL (0-0.2); Basophils % (auto) 0.1 %; Eosinophils # (auto) 0.01 K/uL (0-0.50); Eosinophils % (auto) 0.1 %; Hematocrit (blood only) 30.2 % (42.0-52.0); Hemoglobin 9.9 g/dl (14.0-18.0); Immature Granulocytes # (auto) 0.08 K/uL (0.01-0.20); Immature Granulocytes % (auto) 0.6 %; Lymphocytes # (auto) 0.97 K/uL (1.2-3.4); Lymphocytes % (auto) 7.4 %; Mean Corpuscular Hemoglobin 26.8 pg (25.0-34.0); Mean Corpuscular Hgb Conc 32.8 g/dL (32.0-36.0); Mean Corpuscular Volume 81.6 fL (80.0-100.0); Mean Platelet Volume 10.8 fL (9.4-12.4); Monocytes # (auto) 1.44 K/uL (0.11-0.59); Neutrophils # (auto) 10.54 K/uL (1.40-6.50); Neutrophils % (auto) 80.8 %; Platelet Count 154 K/uL (130-400); RDW Coefficient of Variation 15.1 % (11.5-14.5); RDW Standard Deviation 45.1 fL (36.4-46.3); White Blood Count 13.05 K/ul (4.8-10.8)
[2022-10-26 06:53] LABS: Albumin Level 3.2 gm/dl (3.4-5.0); Bilirubin,Total 0.5 mg/dl (0.2-1.0); Calcium 7.8 mg/dl (8.6-10.3); Potassium 3.9 mmol/L (3.5-5.1)
[2022-10-26 07:08] LABS: Partial Thromboplastin Time 109.6 Seconds (21.0-31.0)
[2022-10-26 07:10] LABS: Albumin Globulin Ratio 1.3 (0.9-2); BUN Creatinine Ratio 16.6 (10-20); Creatinine Clr Calc Pharmacy 17.1 ml/min; Est GFR (African American) 16.5 ml/min; Est GFR (Non-African American) 14.2 ml/min; Globulin 2.4 gm/dl (2.5-4.0); Phosphorus 3.9 mg/dl (2.5-4.9); Total Protein 5.6 gm/dl (6.0-8.3)
[2022-10-26] MEDS: CALCITRIOL 0.25 MCG CAPSULE PO SCH (08:00)
[2022-10-26] MEDS: FAMOTIDINE 20 MG TAB PO SCH (08:00)
[2022-10-26] MEDS: PANTOprazole 40 MG TAB PO SCH ×2 (08:00→21:39)
[2022-10-26] MEDS: NITROGLYCERIN/D5W 100MCG/ML 250 ML IV SCH (08:03)
[2022-10-26] MEDS: INSULIN ASPART PER UNIT CHARGE SC SCH ×4 (08:31→21:50)
[2022-10-26] MEDS: LANTUS PER UNIT CHARGE SC SCH (08:31)
[2022-10-26] MEDS ORDERED: predniSONE 20 MG TAB PO SCH (09:00)
--- NOTE | 2022-10-26 10:01 | Nephrology Progress Note ---
Date of Service October 26, 2022 Assessment & Plan (1) ESRD (end stage renal disease): (2) Hyperkalemia: (3) Acute non-ST elevation myocardial infarction (NSTEMI): (4) Atrial fibrillation: (5) Hypertension: (6) Anemia: Plan ESRD secondary to microvascular disease with history of hypertension, diabetes, coronary artery disease, renal function has been declining over last few years and he has been ESRD for last few months. Creatinine was staying around 4 and since admission creatinine was staying around 4.5-4.6. Has all the stigmata of end-stage renal disease including hyperkalemia, metabolic acidosis, hyperphosphatemia and anemia. Admitted with NSTEMI, AFib with RVR, had cardiac catheterization on 10/24/22 showing multivessel coronary artery disease, will need CABG, plan to go to [facility] as an outpatient to see thoracic surgery. -- discontinue heparin drip now, keep NPO and plan for tunneled dialysis catheter this afternoon around 4:00 p.m.. Will try another dialysis session tomorrow to make sure catheter is functioning. If clinically otherwise stable tomorrow catheter works well, can be discharged as long as we have a chair time at the dialysis unit. Discussed with dialysis unit rn case management, hopefully will have some decision by tomorrow. we discussed an alternative option of discharging from the hospital tomorrow morning then going as an outpatient to [place] to have tunneled dialysis catheter by a vascular surgeon there but patient preferred to stay here. -- left arm nephrology precaution for future vascular access -- dose medications for EGFR less than 10 -- start on Renal cap and phos binder. -- case management consulted for outpatient dialysis set up at [facility]. Admission and Anticipated Discharge Date Admission Date: October 23, 2022 Darius Bobo has been tolerating dialysis, currently getting 3rd dialysis treatment for 4 h, Tolerating UF goal of 2 L. Blood pressure staying relatively stable. Denies chest pain or shortness of breath. plan for tunneled dialysis catheter this afternoon. Review of Systems Review of Systems: Detailed review of system was otherwise unremarkable except mentioned above. Physical Exam Constitutional: WD/WN, vitals as above no acute distress Eyes: + anicteric sclerae Neck: normal visual inspection Respiratory: Auscultation: lungs clear to auscultation bilaterally Cardiovascular: Rate/Rhythm: + irregularly irregular Extremities: no edema Skin: no rashes Neurologic: no focal motor deficits Psychiatric: Orientation: alert and oriented x 3 Affect: euthymic affect Results & Data Vital Signs (Past 12 Hours) Vital Signs Temp Pulse Pulse Pulse Resp BP BP 10/26/22 07:44 85 10/26/22 07:34 36.6 C 84 18 144/71 H 10/26/22 07:15 75 16 10/26/22 03:49 86 18 10/26/22 03:01 36.7 C 83 20 10/26/22 00:20 80 10/26/22 00:13 36.7 C 82 18 150/86 H 10/25/22 23:15 76 18 10/25/22 23:00 83 18 10/25/22 23:00 140/97 10/25/22 22:45 77 19 10/25/22 22:30 82 15 10/25/22 22:27 78 19 10/25/22 22:27 140/85 10/25/22 22:15 83 18 10/25/22 22:00 84 22 BP Pulse Ox O2 Del Method 10/26/22 07:44 10/26/22 07:34 98 Room Air 10/26/22 07:15 92 Room Air 10/26/22 03:49 95 Room Air 10/26/22 03:01 127/73 92 Room Air 10/26/22 00:20 10/26/22 00:13 97 Room Air 10/25/22 23:15 96 10/25/22 23:00 94 10/25/22 23:00 10/25/22 22:45 95 10/25/22 22:30 96 10/25/22 22:27 94 10/25/22 22:27 10/25/22 22:15 10/25/22 22:00 PG Care Time/CCT Total # of Minutes Spent Total Time Spent with Patient: Total time spent is greater than 50% in coordination of care (as documented) at patient's floor/unit and/or counseling patient: Coding Level of Care Code 75722 SUB INP/OBS CARE 3/50MIN Diagnoses ESRD (end stage renal disease) N18.6 Hyperkalemia E87.5 Acute non-ST elevation myocardial infarction (NSTEMI) I21.4 Atrial fibrillation I48.91 Atrial fibrillation type: unspecified Hypertension I10 Anemia D64.9 (4) Atrial fibrillation Atrial fibrillation type: unspecified Qualified Code(s): I48.91 - Unspecified atrial fibrillation
--- NOTE | 2022-10-26 10:13 | Pharmacy Report ---
Pharmacy Glycemic Short Note 2 - Date of Service October 26, 2022 - Glycemic Short BSG Results (Last 24 hours): 10/25/22 10/25/22 10/25/22 11:02 15:56 22:08 Glucose POC Glucose 146 H 260 H 273 H 10/26/22 10/26/22 06:09 07:24 Glucose 102 H POC Glucose 119 H OUTPATIENT ANTIDIABETIC REGIMEN: * Tresiba 10 units, Novolog SSI (2-4 units per meals per DM Endo notes) ASSESSMENT: 10/26 * Steroids changed from Solu-Medrol to prednisone 40mg daily today * Blood sugars rising throughout the day, tighten CR * Fasting blood sugar at goal, continue basal * Will need to decrease insulin as steroids taper 10/25 * Patient BSG elevated last PM after dinner. Correction factor and carb ratio tightened with good down trend * Fasting 115 mg/dL- continue lantus 10 units daily * Patient awaiting transfer to [place]. 10/23 * 72 year old admitted with afib, ESRD - pharmacy consulted for glycemic management. Started patient on stress of 2 novolog - unclear of PO intake at this time. Opted to hold basal for HS tonight * Will reevaluate basal insulin tomorrow AM PLAN FOR INPATIENT GLYCEMIC CONTROL: * Basal insulin * Lantus - 10 units qAM * Bolus insulin * NovoLog per scale ACHS or Q6hrs while NPO * Goal Range: Low 110 mg/dL - High 140 mg/dL * Correction Factor: 25 mg/dL/unit * Nutritional / Prandial insulin per carb ratio of 1 unit per 7 grams CHO consumed
--- NOTE | 2022-10-26 13:44 | Surgery Consultation ---
Date of Consultation October 26, 2022 Assessment & Plan (1) EDEL (acute kidney injury): To be able to be discharged she needs a tunneled catheter. Her vascular surgeon is out of town. I should be able to simply exchange his right internal jugular central line for a tunneled catheter. We discussed potential for bleeding infection vascular injury pneumothorax DVT PE ID CVA etc. Also discussed that I may need to use a separate site if I am unable to perform the exchange. Following this I have answered all of his questions. We will proceed this afternoon with exchange of a right internal jugular central line for a tunneled dialysis catheter. Patient agrees to the plan. (2) ESRD (end stage renal disease): (3) Acute non-ST elevation myocardial infarction (NSTEMI): (4) CKD (chronic kidney disease), stage IV: (5) T2DM (type 2 diabetes mellitus): (6) Hypertension: History of Present Illness Attending Physician: Maurilio Mai MD History of Present Illness 72-year-old man recently admitted with elevated troponin. He has a history of diabetes mellitus as well as chronic kidney disease hypertension history of myocardial infarction. He underwent a cardiac catheterization yesterday. He is now in need of dialysis. I was requested to place a tunneled catheter so that he could be discharged with dialysis as an outpatient. Allergies Allergy/AdvReac Type Severity Reaction Status Date / Time No Known Drug Allergies Allergy Verified 10/23/22 16:54 Home Medications Medication Instructions Recorded Confirmed Type atorvastatin 80 mg tablet 80 mg PO HS #90 tabs 09/16/21 10/23/22 Rx albuterol sulfate 90 mcg/actuation 1 - 2 puff inhalation Q6H PRN 09/29/21 10/23/22 History aerosol inhaler (Ventolin HFA) Shortness Of Breath Or Wheezing nitroglycerin 0.4 mg sublingual 0.4 mg sublingual UD PRN Angina 12/27/21 10/23/22 Rx tablet #30 tabs amlodipine 5 mg tablet 5 mg PO DAILY #90 tabs 05/04/22 10/23/22 Rx calcitriol 0.25 mcg capsule 0.25 mcg PO DAILY #90 caps 05/04/22 10/23/22 Rx isosorbide mononitrate 30 mg 30 mg PO BID #180 tabs 05/04/22 10/23/22 Rx tablet,extended release 24 hr carvedilol 12.5 mg tablet 12.5 mg PO BID #180 tabs 05/24/22 10/23/22 Rx insulin degludec 100 unit/mL (3 See Rx Instructions .Route 08/22/22 10/23/22 Rx mL) subcutaneous pen (Tresiba .COMPLEX #15 mL FlexTouch U-100 insulin) FreeStyle Lite Strips (blood sugar #200 ea 08/28/22 Rx diagnostic) insulin aspart U-100 100 unit/mL 0 unit subcut TID 10/23/22 10/23/22 History (3 mL) subcutaneous pen (Novolog FlexPen U-100 Insulin aspart) Patient History Medical History (Updated 10/24/22 @ 10:32 by Winter Interiano MD) Anemia Asthma d/t asbestos--inhaler prn Atrial fibrillation takes aspirin daily--follows with Dr. Galindo Carpal tunnel syndrome, bilateral Cholelithiasis Chronic kidney disease, stage 2 (mild) Chronic kidney disease, stage 3 Coronary artery disease Diabetes mellitus with insulin therapy Diabetes mellitus, type 2 Diabetic nephropathy associated with type 2 diabetes mellitus Dyslipidemia History of diabetic retinopathy Hyperkalemia Hyperlipidemia Hypertension Hypertension Myocardial Infarction 2015 Pancreatitis Paroxysmal atrial fibrillation T2DM (type 2 diabetes mellitus) Vitamin D deficiency Surgical History History of cardiac cath 2015x2 @ [facility] in [place], [place]--4 stents placed History of colonoscopy History of endoscopic sinus surgery History of left inguinal hernia repair History of tooth extraction Hx of vasectomy Family History Father Myocardial infarction Cardiac disorder Hypertension Brother Cardiac disorder Hypertension Other No family history of adverse response to anesthesia Social History Smoking Status: Never smoker Second Hand Exposure: No; Hx Alcohol Use: No Hx Substance Use: No Preferred Language: Romanian Communication Ability: Effective Visual Impairment: Limited Hearing Ability: Normal Erp Analyst Required: No Beliefs That Will Affect Care: Orthodoxy Orthodoxy Beliefs: Orthodoxy/ Caodaism marital status: Current Living Situation: Significant Other current occupational status: employed 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 [employer] Feels Safe at Home: Yes Childhood Exposure to Second-Hand Smoke: Yes caffeine: Yes Dental Care, Regularly: No Physical Activity Frequency: Daily Seatbelt Use: always Sunscreen Use: Yes Assistive Devices: None Review of Systems Review of Systems: All systems reviewed & are unremarkable except as noted in HPI & below Physical Exam Constitutional: WD/WN, vitals as above no acute distress and not ill appearing Eyes: PERRL, conjunctivae normal, anicteric sclerae EOM intact bilaterally ENMT: external ear and nose normal, oropharynx normal Ears: no hearing impairment Neck: trachea midline, no thyromegaly Respiratory: normal respiratory effort; no respiratory distress and does not use accessory muscles Cardiovascular: Rate/Rhythm: regular rate and regular rhythm Right internal jugular triple-lumen in place. No sign of infection Gastrointestinal (Abdomen): normal bowel sounds, soft, nontender, no hepatosplenomegaly Skin: no rashes, warm and dry Psychiatric: Orientation: alert, oriented x 3 and cooperative Results & Data Vital Signs (Past 12 Hours) Vital Signs Temp Pulse Pulse Pulse Pulse Resp BP 10/26/22 13:10 84 10/26/22 13:00 82 135/89 10/26/22 12:30 93 H 131/91 10/26/22 12:00 85 117/76 10/26/22 11:30 88 130/81 10/26/22 11:00 71 125/81 10/26/22 08:20 10/26/22 10:30 71 127/79 10/26/22 10:00 82 129/67 10/26/22 09:30 80 120/81 10/26/22 09:05 63 153/72 H 10/26/22 08:58 36.6 C 86 10/26/22 07:44 85 10/26/22 07:34 36.6 C 84 18 10/26/22 07:15 75 16 10/26/22 03:49 86 18 10/26/22 03:01 36.7 C 83 20 BP BP Pulse Ox O2 Del Method 10/26/22 13:10 140/87 10/26/22 13:00 10/26/22 12:30 10/26/22 12:00 10/26/22 11:30 10/26/22 11:00 10/26/22 08:20 Room Air 10/26/22 10:30 10/26/22 10:00 10/26/22 09:30 10/26/22 09:05 10/26/22 08:58 10/26/22 07:44 10/26/22 07:34 144/71 H 98 Room Air 10/26/22 07:15 92 Room Air 10/26/22 03:49 95 Room Air 10/26/22 03:01 127/73 92 Room Air PG Care Time/CCT Total # of Minutes Spent Total Time Spent with Patient: Total time spent is greater than 50% in coordination of care (as documented) at patient's floor/unit and/or counseling patient: Coding Level of Care Code 76571 INT INP/OBS CARE 2/55MIN Diagnoses EDEL (acute kidney injury) N17.9 ESRD (end stage renal disease) N18.6 Acute non-ST elevation myocardial infarction (NSTEMI) I21.4 CKD (chronic kidney disease), stage IV N18.4 T2DM (type 2 diabetes mellitus) E11.9 Hypertension I10
[2022-10-26] MEDS: carvediloL 12.5 MG TAB PO SCH ×2 (14:06→21:39)
[2022-10-26] MEDS: ISOSORBIDE MONO EXTENDED REL 30 MG TABCR PO SCH (14:06)
[2022-10-26] MEDS: PATIROMER CALCIUM SORBITEX 8.4 GM PACK PO SCH (14:07)
--- NOTE | 2022-10-26 14:21 | Hospitalist Progress Note ---
Date of Service October 26, 2022 Assessment & Plan (1) Acute non-ST elevation myocardial infarction (NSTEMI): Plan: Patient presented with chest pain and his troponin went up from 500s to 700s. He had acute non-ST elevation WA Decision was made to proceed towards cardiac catheterization and then dialysis after Cardiac catheterization on 10/24 showed general worsening of his coronary disease but no particular culprit blood vessel that was intervenable. Cardio logy recommends outpatient follow-up with tertiary care center to consider revascularization. For the time being, continue medical management. Continue heparin drip until vascular access established later this afternoon. We will then switch to Eliquis for atrial fibrillation Continue Lipitor 80, Coreg 12.5 twice daily. Nitro drip discontinued. Started Imdur 30 mg Start aspirin tomorrow a.m. Cardiology recommended starting lisinopril for its cardiac benefits now that it is established that he is going to be on dialysis. Cardiology on board (2) Atrial fibrillation: Plan: -Hx of Paroxysmal Afib, not previously on AC as he is typically in NSR and the patient wanted to try and avoid bleeding risks -He presented with A-fib this hospitalization. -Continue heparin drip for now until he gets his tunneled dialysis catheter placed later this afternoon. May switch to Eliquis after that. No more on amiodarone as he has converted to sinus rhythm (3) ESRD (end stage renal disease): Plan: -Patient had CKD stage V to begin with, now started on dialysis postcardiac catheterization Will need to be set up with outpatient dialysis. Case management on board. He currently has a temporary catheter which will need to be switched to a tunneled dialysis catheter. This will be done this afternoon. We will switch from IV heparin to p.o. Eliquis after vascular access established. (4) SOB (shortness of breath): Plan: -This was most likely cardiac in etiology as his shortness of breath resolved There may be a small component of COPD exacerbation which we are treating with azithromycin and p.o. prednisone and DuoNebs. Continue for now Resolved No wheezing at this time (5) Chest pain: Plan: -See elevated trop and SOB (6) Hypertension: Plan: -Stable -Continue amlodipine and Carvedilol. May consider adding lisinopril for cardiac benefits (7) T2DM (type 2 diabetes mellitus): Plan: -Monitor BSG ACHS for now, goal is 110-140 -Will start with conservative regimen due to his currently controlled BSG and ESRD -Hold basal insulin for now, CF of 50 and CR of 15 -Adjust regimen as needed -Pharmacy Glyemic consult ordered due to starting steroid for possible COPD exacerbation (8) Coronary artery disease: Plan: Please see above (9) Dyslipidemia: Plan: -Continue atorvastatin (10) Elevated troponin: Admission and Anticipated Discharge Date Admission Date: October 23, 2022 Subjective Patient was seen at dialysis today. No chest pain or shortness of breath. Review of Systems Review of Systems: All systems reviewed & are unremarkable except as noted in Subjective Physical Exam Physical Exam: General: Awake, conversant. Appears calm. No distress. Heart: S1, S2/regular rate and rhythm, no murmur rubs or gallops Lungs: Clear to auscultation bilaterally. Normal effort Abdomen: Soft/nontender/nondistended. No hepatosplenomegaly Extremities: No clubbing/cyanosis. No edema Behavior: Appropriate, cooperative Results & Data Results & Data Vital Signs (Past 12 Hours) Vital Signs Temp Pulse Pulse Pulse Pulse Resp BP 10/26/22 13:10 84 10/26/22 13:00 82 135/89 10/26/22 12:30 93 H 131/91 10/26/22 12:00 85 117/76 10/26/22 11:30 88 130/81 10/26/22 11:00 71 125/81 10/26/22 08:20 10/26/22 10:30 71 127/79 10/26/22 10:00 82 129/67 10/26/22 09:30 80 120/81 10/26/22 09:05 63 153/72 H 10/26/22 08:58 36.6 C 86 10/26/22 07:44 85 10/26/22 07:34 36.6 C 84 18 10/26/22 07:15 75 16 10/26/22 03:49 86 18 10/26/22 03:01 36.7 C 83 20 BP BP Pulse Ox O2 Del Method 10/26/22 13:10 140/87 10/26/22 13:00 10/26/22 12:30 10/26/22 12:00 10/26/22 11:30 10/26/22 11:00 10/26/22 08:20 Room Air 10/26/22 10:30 10/26/22 10:00 10/26/22 09:30 10/26/22 09:05 10/26/22 08:58 10/26/22 07:44 10/26/22 07:34 144/71 H 98 Room Air 10/26/22 07:15 92 Room Air 10/26/22 03:49 95 Room Air 10/26/22 03:01 127/73 92 Room Air Laboratory Results Abnormal lab results 10/25/22 10/25/22 10/25/22 Range/Units 13:02 15:56 22:08 WBC (4.8-10.8) K/ul RBC (4.70-6.10) M/uL Hgb (14.0-18.0) g/dl Hct (42.0-52.0) % RDW Coeff of Jocelyn (11.5-14.5) % Neut # (Auto) (1.40-6.50) K/uL Lymph # (Auto) (1.2-3.4) K/uL [place] # (Auto) (0.11-0.59) K/uL APTT 61.5 H* (21.0-31.0) Seconds BUN (6-23) mg/dl Creatinine (0.6-1.4) mg/dl Glucose (70-99(Fasting)) mg/dl POC Glucose 260 H 273 H (70-99) mg/dl Calcium (8.6-10.3) mg/dl Total Protein (6.0-8.3) gm/dl Albumin (3.4-5.0) gm/dl Globulin (2.5-4.0) gm/dl 10/26/22 10/26/22 10/26/22 Range/Units 06:09 06:09 06:09 WBC 13.05 H (4.8-10.8) K/ul RBC 3.70 L (4.70-6.10) M/uL Hgb 9.9 L (14.0-18.0) g/dl Hct 30.2 L (42.0-52.0) % RDW Coeff of Jocelyn 15.1 H (11.5-14.5) % Neut # (Auto) 10.54 H (1.40-6.50) K/uL Lymph # (Auto) 0.97 L (1.2-3.4) K/uL [place] # (Auto) 1.44 H (0.11-0.59) K/uL APTT 109.6 H* (21.0-31.0) Seconds BUN 66 H D (6-23) mg/dl Creatinine 3.97 H D (0.6-1.4) mg/dl Glucose 102 H (70-99(Fasting)) mg/dl POC Glucose (70-99) mg/dl Calcium 7.8 L (8.6-10.3) mg/dl Total Protein 5.6 L (6.0-8.3) gm/dl Albumin 3.2 L (3.4-5.0) gm/dl Globulin 2.4 L (2.5-4.0) gm/dl 10/26/22 Range/Units 07:24 WBC (4.8-10.8) K/ul RBC (4.70-6.10) M/uL Hgb (14.0-18.0) g/dl Hct (42.0-52.0) % RDW Coeff of Jocelyn (11.5-14.5) % Neut # (Auto) (1.40-6.50) K/uL Lymph # (Auto) (1.2-3.4) K/uL [place] # (Auto) (0.11-0.59) K/uL APTT (21.0-31.0) Seconds BUN (6-23) mg/dl Creatinine (0.6-1.4) mg/dl Glucose (70-99(Fasting)) mg/dl POC Glucose 119 H (70-99) mg/dl Calcium (8.6-10.3) mg/dl Total Protein (6.0-8.3) gm/dl Albumin (3.4-5.0) gm/dl Globulin (2.5-4.0) gm/dl PG Care Time/CCT Total # of Minutes Spent Total Time Spent with Patient: Total time spent is greater than 50% in coordination of care (as documented) at patient's floor/unit and/or counseling patient: Coding Level of Care Code 30499 SUB INP/OBS CARE 2/35MIN Diagnoses Acute non-ST elevation myocardial infarction (NSTEMI) I21.4 Atrial fibrillation I48.91 Atrial fibrillation type: unspecified ESRD (end stage renal disease) N18.6 SOB (shortness of breath) R06.02 Chest pain R07.9 Hypertension I10 T2DM (type 2 diabetes mellitus) E11.9 Coronary artery disease I25.10 Dyslipidemia E78.5 Elevated troponin R77.8 (2) Atrial fibrillation Atrial fibrillation type: unspecified Qualified Code(s): I48.91 - Unspecified atrial fibrillation
[2022-10-26 14:37] LABS: Partial Thromboplastin Ratio 1.1; Partial Thromboplastin Time 30.6 Seconds (21.0-31.0)
[2022-10-26] MEDS ORDERED: PROPOFOL IV EMULSION 10 MG/ML 20 ML VIAL IV ONE (15:46)
[2022-10-26] MEDS ORDERED: BUPIVACAINE/EPINEPHRINE 0.5% MPF 1:200,000 30 ML VIAL ONE (15:49)
[2022-10-26] MEDS ORDERED: HEPARIN 100 UNIT/ML 5ML FLUSH ONE (15:49)
--- NOTE | 2022-10-26 15:51 | Anesthesiology Consultation ---
Date of Service October 26, 2022 Assessment & Plan Chart Review Chart Review: Acceptable Risk for Surgery Consults Requested none Teaching & Discussion cardiac cath yest for unstable angina ntg now off per cards [place] [facility] [place] no cp or sob with 2 mets plan light sedation pt accepts risks ASA ASA4 Proposed Anesthesia Anesthesia Type: MAC Risk / Benefits Reviewed With: PT / POA / Parent / Guardian, Accepts Plan and Informed Consent Obtained History Surgery Operation Date: 10/24/22 11:00 Proposed Procedures p Cardiac Cath Procedure - Jeramie Salmeron MD, PhD Operation Date: 10/26/22 08:55 Proposed Procedures p Right Internal Jugular Catheter - Kirby Armenta, Height/Weight Height: 5 ft 9 in Weight: 71 kg Allergies Allergy/AdvReac Type Severity Reaction Status Date / Time No Known Drug Allergies Allergy Verified 10/23/22 16:54 Medications Home Medications Medication Instructions Recorded Confirmed Last Taken atorvastatin 80 mg tablet 80 mg PO HS #90 tabs 09/16/21 10/23/22 1 Month Ago ~09/22/22 albuterol sulfate 90 mcg/actuation 1 - 2 puff inhalation Q6H PRN 09/29/21 10/23/22 1 Month Ago aerosol inhaler (Ventolin HFA) Shortness Of Breath Or Wheezing ~09/22/22 nitroglycerin 0.4 mg sublingual 0.4 mg sublingual UD PRN Angina 12/27/21 10/23/22 1 Month Ago tablet #30 tabs ~09/22/22 amlodipine 5 mg tablet 5 mg PO DAILY #90 tabs 05/04/22 10/23/22 10/23/22 08:00 calcitriol 0.25 mcg capsule 0.25 mcg PO DAILY #90 caps 05/04/22 10/23/22 10/23/22 08:00 isosorbide mononitrate 30 mg 30 mg PO BID #180 tabs 05/04/22 10/23/22 10/23/22 08:00 tablet,extended release 24 hr carvedilol 12.5 mg tablet 12.5 mg PO BID #180 tabs 05/24/22 10/23/22 10/23/22 08:00 insulin degludec 100 unit/mL (3 See Rx Instructions .Route 08/22/22 10/23/22 10/22/22 18:00 mL) subcutaneous pen (Tresiba .COMPLEX #15 mL FlexTouch U-100 insulin) FreeStyle Lite Strips (blood sugar #200 ea 08/28/22 Unknown diagnostic) insulin aspart U-100 100 unit/mL 0 unit subcut TID 10/23/22 10/23/22 1 Month Ago (3 mL) subcutaneous pen (Novolog ~09/22/22 FlexPen U-100 Insulin aspart) Active Medications Generic Name Dose Route Start Last Admin Trade Name Freq PRN Reason Stop Dose Admin Atorvastatin Calcium 80 mg 10/23/22 21:53 10/25/22 22:11 Atorvastatin 40 Mg Tab PO 11/22/22 21:52 80 mg HS TRACI Administration Calcitriol 0.25 mcg 10/24/22 09:00 10/26/22 08:00 Calcitriol 0.25 Mcg Capsule PO 11/23/22 08:59 0.25 mcg DAILY TRACI Administration Carvedilol 12.5 mg 10/23/22 21:53 10/26/22 14:06 Carvedilol 12.5 Mg Tab PO 11/22/22 21:52 Not Given BID TRACI Famotidine 20 mg 10/23/22 18:00 10/26/22 08:00 Famotidine 20 Mg Tab PO 11/22/22 17:59 20 mg QAM TRACI Administration Guaifenesin 200 mg 10/23/22 17:45 10/26/22 14:07 Guaifenesin Sugar Free 200 Mg/10 Ml Udc PO 11/22/22 17:44 Not Given Q6H TRACI Azithromycin 500 mg/ Dextrose 255 mls @ 127.5 mls/hr 10/24/22 18:00 10/25/22 19:58 IV 10/31/22 17:59 Infused Q24H TRACI Infusion Insulin Aspart 0 units 10/23/22 18:45 10/26/22 13:42 Insulin Aspart Per Unit Charge SC 11/22/22 18:44 Not Given ACHS TRACI Insulin Glargine 10 units 10/24/22 09:00 10/26/22 08:31 Lantus Per Unit Charge SC 11/23/22 08:59 10 units DAILY TRACI Administration Isosorbide Mononitrate 30 mg 10/26/22 09:00 10/26/22 14:06 Isosorbide [place] Extended Rel 30 Mg Tabcr PO 11/25/22 08:59 Not Given QAM TRACI Levalbuterol HCl 1.25 mg 10/23/22 19:00 10/26/22 13:47 Levalbuterol Hcl 1.25 Mg/3 Ml Neb NEB 11/22/22 18:59 Not Given Q6R TRACI Protocol Pantoprazole Sodium 40 mg 10/25/22 21:00 10/26/22 08:00 Pantoprazole 40 Mg Tab PO 11/24/22 20:59 40 mg BID TRACI Administration Patiromer 8.4 gm 10/24/22 11:00 10/26/22 14:07 Patiromer Calcium Sorbitex 8.4 Gm Pack PO 11/23/22 10:59 Not Given DAILY@1100 TRACI Prednisone 40 mg 10/26/22 09:00 10/26/22 08:00 Prednisone 20 Mg Tab PO 10/29/22 08:59 40 mg DAILY TRACI Administration NPO Date Last Intake of Fluids: 10/26/22 Time Last Intake of Fluids: 08:00 Date Last Intake of Solids: 10/26/22 Time Last Intake of Solids: 08:00 Past Medical History Medical History Anemia Asthma d/t asbestos--inhaler prn Atrial fibrillation takes aspirin daily--follows with Dr. Galindo Carpal tunnel syndrome, bilateral Cholelithiasis Chronic kidney disease, stage 2 (mild) Chronic kidney disease, stage 3 Coronary artery disease Diabetes mellitus with insulin therapy Diabetes mellitus, type 2 Diabetic nephropathy associated with type 2 diabetes mellitus Dyslipidemia History of diabetic retinopathy Hyperkalemia Hyperlipidemia Hypertension Hypertension Myocardial Infarction 2015 Pancreatitis Paroxysmal atrial fibrillation T2DM (type 2 diabetes mellitus) Vitamin D deficiency Exercise / Class Metabolic Activity IV < 2 Limit ADL/Bedbound Past Family History Family History Father Myocardial infarction Cardiac disorder Hypertension Brother Cardiac disorder Hypertension Other No family history of adverse response to anesthesia Past Surgical History Surgical History History of cardiac cath 2015x2 @ [facility] in [place], [place]--4 stents placed History of colonoscopy History of endoscopic sinus surgery History of left inguinal hernia repair History of tooth extraction Hx of vasectomy Past Anesthesia History No Hx of Anesthesia Complications and No Family Hx of Anesthesia Complications History of PONV No Hx of PONV and No Hx of Motion Sickness Social History Smoking Status: Never smoker Do You Dip or Chew Tobacco: No Hx Alcohol Use: No Alcohol type: beer, wine and hard liquor alcohol intake frequency: a few times a month Hx Substance Use: No substance use type: does not use Physical Exam Vital Signs Last Vital Signs Temp 36.6 C 10/26/22 08:58 Pulse 84 10/26/22 13:10 Resp 18 10/26/22 07:34 BP 140/87 10/26/22 13:10 Pulse Ox 98 10/26/22 07:34 O2 Del Method Room Air 10/26/22 08:20 O2 Flow Rate 2 10/25/22 18:00 ENMT Mouth: no TMJ abnormality Thyromental Distance: > or= 3.5 Finger Breadths Mallampati Class: II Neck normal visual inspection and trachea midline; neck extension not limited Respiratory normal respiratory effort Auscultation: lungs clear to auscultation bilaterally Cardiovascular Rate/Rhythm: regular rate and regular rhythm (irreg irreg ) Heart Sounds: no murmur Musculoskeletal Spine: normal cervical ROM Extremities: full ROM of extremities Neurologic moves all extremities Psychiatric Orientation: alert and oriented x 3 Testing Laboratory Results 10/26/22 06:09 10/26/22 06:09 PT 12.1 Seconds (9.0-12.0) H 10/23/22 15:12 INR 1.1 (0.9-1.1) 10/23/22 15:12 APTT 30.6 Seconds (21.0-31.0) 10/26/22 14:00 10/26/22 10/26/22 13:35 07:24 POC Glucose 99 119 H
[2022-10-26] MEDS ORDERED: ceFAZolin 2,000 MG/15 ML IV PUSH IV ONE (15:53)
[2022-10-26] MEDS ORDERED: ePHEDrine sulfate 50 MG/ML AMP IV PRN (15:59)
[2022-10-26] MEDS ORDERED: fentaNYL citrate PF 100 MCG/2 ML VIAL IV PRN (15:59)
[2022-10-26] MEDS ORDERED: ALBUT/IPRATROP 3MG/0.5MG NEB 3 ML VIAL INH PRN (15:59)
[2022-10-26] MEDS ORDERED: ONDANSETRON INJ 2 MG/ML 2 ML VIAL IV PRN (15:59)
[2022-10-26] MEDS ORDERED: ATROPINE SULFATE 0.1 MG/ML 10ML SYR IV PRN (15:59)
[2022-10-26] MEDS ORDERED: fentaNYL citrate PF 100 MCG/2 ML VIAL ONE (16:09)
[2022-10-26] MEDS ORDERED: ONDANSETRON INJ 2 MG/ML 2 ML VIAL ONE (16:53)
--- NOTE | 2022-10-26 17:13 | Operative Report ---
PG Post Operative Report Pre & Post Diagnosis Operation Date: 10/26/22 08:55 Pre-Op Diagnosis: Need for hemodialysis Post-Op Diagnosis: Need for hemodialysis I identified the patient and participated in the time-out.: Yes Procedure Operation Date: 10/26/22 08:55 Actual Procedures p Removal Right Internal Jugular Catheter, Replacement Right internal Jugular D ialysis Catheter(Right) - Kirby Armenta DO Surgeon Kirby Armenta DO Assistant Media Planner n/a Estimated Blood Loss 20 Findings Consistent with Post-Op Diagnosis Specimens none Description of Procedure After informed consent was obtained the patient was brought to the operating suite and placed in supine position. Both arms were tucked. IV sedation was administered by anesthesia and titrated to effect. The entire chest and neck including the previous central line were sterilely prepped and draped in usual fashion. I began by advancing a guidewire through the distal tip of the existing right internal jugular catheter under fluoroscopic guidance. Next I used Marcaine with epinephrine to create a skin wheal on the lateral side of the chest below the clavicle. I continued to anesthetize the skin up and over the clavicle up to the insertion site of the guidewire. A small skin incision was made on the upper chest wall as well as at the insertion site of the prior catheter. At this point I used a tunneling probe attached to the cuffed tunneled catheter brought it from the incision on the upper chest wall up into the neck. The cuff was several centimeters from the incision site under the skin. Next I removed the existing catheter and advanced a vascular dilator with peel-away sheath over the guidewire again under fluoroscopic guidance. We then advanced the catheter through the sheath and peeled the sheath away leaving only the catheter behind. X-ray confirmed location. I used 10 cc of heparin 5 cc in each port. They both withdrew dark venous blood and flushed easily. I secured the catheter to the skin using 3-0 silk. The skin incision was closed using 4-0 Vicryl. Dermabond glue was used at the neck incision and an OpSite dressing for the catheter. The patient tolerated the procedure well. He was awakened and transferred to recovery in stable condition. Postoperative portable chest x-ray is currently pending to rule out pneumothorax and verify catheter position. I attest to the content of the Intraoperative Record and any orders documented therein. Any exceptions are noted below.
--- NOTE | 2022-10-26 17:25 | Anesthesiology Progress Note ---
Date of Service October 26, 2022 Anesthesia Post Procedure Vital Signs Vital Signs: Temp Pulse Pulse Pulse Pulse Resp BP 10/26/22 17:10 36.0 C L 91 H 14 10/26/22 17:01 36.0 C L 99 H 10 L 10/26/22 15:45 36.6 C 94 H 19 10/26/22 15:00 36.7 C 87 16 10/26/22 13:10 84 10/26/22 13:00 82 135/89 10/26/22 12:30 93 H 131/91 10/26/22 12:00 85 117/76 10/26/22 11:30 88 130/81 10/26/22 11:00 71 125/81 10/26/22 08:20 10/26/22 10:30 71 127/79 10/26/22 10:00 82 129/67 10/26/22 09:30 80 120/81 10/26/22 09:05 63 153/72 H 10/26/22 08:58 36.6 C 86 10/26/22 07:44 85 10/26/22 07:34 36.6 C 84 18 10/26/22 07:15 75 16 10/26/22 03:49 86 18 10/26/22 03:01 36.7 C 83 20 10/26/22 00:20 80 10/26/22 00:13 36.7 C 82 18 10/25/22 23:15 76 18 10/25/22 23:00 83 18 10/25/22 23:00 140/97 10/25/22 22:45 77 19 10/25/22 22:30 82 15 10/25/22 22:27 78 19 10/25/22 22:27 140/85 10/25/22 22:15 83 18 10/25/22 22:00 84 22 10/25/22 21:45 84 23 10/25/22 21:30 88 25 H 10/25/22 21:15 86 21 10/25/22 21:00 87 19 10/25/22 21:00 146/85 H 10/25/22 20:45 84 22 10/25/22 20:30 82 19 10/25/22 20:15 85 20 10/25/22 20:00 85 20 10/25/22 20:00 144/82 H 10/25/22 19:45 89 24 10/25/22 19:30 85 21 10/25/22 19:15 87 17 10/25/22 19:00 84 23 10/25/22 19:00 133/87 10/25/22 18:45 89 16 10/25/22 20:00 10/25/22 19:20 87 10/25/22 18:00 88 22 131/75 BP BP Pulse Ox O2 Del Method O2 Flow Rate 10/26/22 17:10 140/82 95 Room Air 10/26/22 17:01 148/95 H 94 Room Air 10/26/22 15:45 137/96 95 Room Air 10/26/22 15:00 155/71 H 95 Room Air 10/26/22 13:10 140/87 10/26/22 13:00 10/26/22 12:30 10/26/22 12:00 10/26/22 11:30 10/26/22 11:00 10/26/22 08:20 Room Air 10/26/22 10:30 10/26/22 10:00 10/26/22 09:30 10/26/22 09:05 10/26/22 08:58 10/26/22 07:44 10/26/22 07:34 144/71 H 98 Room Air 10/26/22 07:15 92 Room Air 10/26/22 03:49 95 Room Air 10/26/22 03:01 127/73 92 Room Air 10/26/22 00:20 10/26/22 00:13 150/86 H 97 Room Air 10/25/22 23:15 96 10/25/22 23:00 94 10/25/22 23:00 10/25/22 22:45 95 10/25/22 22:30 96 10/25/22 22:27 94 10/25/22 22:27 10/25/22 22:15 10/25/22 22:00 10/25/22 21:45 10/25/22 21:30 96 10/25/22 21:15 96 10/25/22 21:00 96 10/25/22 21:00 10/25/22 20:45 92 10/25/22 20:30 93 10/25/22 20:15 93 10/25/22 20:00 94 10/25/22 20:00 04/19/23 19:45 93 10/25/22 19:30 96 10/25/22 19:15 95 10/25/22 19:00 93 10/25/22 19:00 10/25/22 18:45 97 10/25/22 20:00 Room Air 10/25/22 19:20 94 Room Air 10/25/22 18:00 97 Nasal Cannula 2 Pain Intensity Chest: Pain Intensity: 0 Transfer of Care Handoff Completed per policy Notes Mental Status: alert / awake / arousable Patient Amnestic to Procedure: Yes Nausea / Vomiting: adequately controlled Pain: adequately controlled Airway Patency, RR, SpO2: stable & adequate BP & HR: stable & adequate Hydration State: stable & adequate Anesthetic Complications: no major complications apparent and Pt Satisfied with anesthetic care
--- NOTE | 2022-10-26 17:48 | XRay Report ---
XR chest 1V portable HISTORY: 72 years-old Male s/p HD cath placement status post placement of a right IJ hemodialysis ca theter COMPARISON: 10/23/2022 TECHNIQUE: AP view of the chest FINDINGS: Cardiac silhouette is enlarged. Pulmonary vascular congestion with interstitial coarsening. Layering pleural effusions with bibasilar consolidation. Status post placement of a right IJ dual-lumen hemodi alysis catheter distal tip in the expected location of the mid SVC. No postprocedural pneumothorax. B ones appear grossly intact. Atherosclerosis of the aorta. Coronary arterial stenting. IMPRESSION: 1. Status post placement of a right IJ hemodialysis catheter with distal tip in the expected location of the mid SVC. 2. No postprocedural pneumothorax. 3. Cardiomegaly with pulmonary edema, layering pleural effusions and bibasilar consolidation. ACT 112: Negative or not required by law. The above report was generated using voice recognition software. It may contain grammatical, syntax o r spelling errors. Electronically signed by: Campos Perdomo M.D. 10/26/2022 5:47 PM
--- NOTE | 2022-10-26 17:49 | Fluoroscopy Report ---
FL chest 1V frontal CLINICAL HISTORY: PERM CATH INSERTION ON RIGHT SIDE IN OR WITH REG LUZ COMPARISON STUDY: Chest radiograph of same day FLUOROSCOPY TIME: 7.9 seconds FLUOROSCOPY IMAGES: 2 EXPOSURE DOSE: 1.02 mGy FINDINGS: A catheter is noted within the expected location of the SVC. Overlying hemostats are presen t. IMPRESSION: Fluoroscopic assistance as above. ACT 112: Negative or not required by law. Electronically signed by: Campos Perdomo M.D. 10/26/2022 5:48 PM
[2022-10-26] MEDS: AZITHROMYCIN 500 MG in DEXTROSE 5% 250 ML IV SCH (18:47)
[2022-10-26] MEDS: ATORVASTATIN 40 MG TAB PO SCH (21:38)
[2022-10-27] MEDS: LEVALBUTEROL HCL 1.25 MG/3 ML NEB NEB SCH ×2 (00:36→07:01)
[2022-10-27] MEDS: guaiFENesin SUGAR FREE 200 MG/10 ML UDC PO SCH ×2 (00:40→04:36)
--- NOTE | 2022-10-27 06:59 | Surgery Progress Note ---
Date of Service October 27, 2022 Assessment & Plan (1) ESRD (end stage renal disease): Plan: Status post placement of right internal jugular tunneled catheter. Okay from my standpoint for discharge when okay with primary service. We will sign off Admission and Anticipated Discharge Date Admission Date: October 23, 2022 Subjective Patient seen. No issues so far status post right internal jugular hemodialysis catheter. Physical Exam Physical Exam: Alert. No acute distress Both incisions look good. Tunneled catheter in place. Results & Data Vital Signs (Past 12 Hours) Vital Signs Temp Pulse Pulse Pulse Resp BP BP 10/27/22 04:48 36.8 C 62 18 138/88 10/26/22 22:59 117 H 10/26/22 22:21 36.7 C 102 H 18 151/82 H 10/26/22 20:05 36.4 C L 86 18 133/74 10/26/22 20:00 85 18 Pulse Ox O2 Del Method 10/27/22 04:48 97 Room Air 10/26/22 22:59 10/26/22 22:21 97 Room Air 10/26/22 20:05 96 Room Air 10/26/22 20:00 96 Room Air PG Care Time/CCT Total # of Minutes Spent Total Time Spent with Patient: Total time spent is greater than 50% in coordination of care (as documented) at patient's floor/unit and/or counseling patient: Coding Level of Care Code 57238 Post Operative Follow-Up Diagnoses ESRD (end stage renal disease) N18.6
[2022-10-27 07:41] LABS: Partial Thromboplastin Ratio 0.8; Partial Thromboplastin Time 23.6 Seconds (21.0-31.0)
[2022-10-27] MEDS ORDERED: LEVALBUTEROL HCL 1.25 MG/3 ML NEB INH PRN (08:01)
[2022-10-27] MEDS: INSULIN ASPART PER UNIT CHARGE SC SCH (08:46)
[2022-10-27] MEDS: CALCITRIOL 0.25 MCG CAPSULE PO SCH (08:48)
[2022-10-27] MEDS: PANTOprazole 40 MG TAB PO SCH (08:48)
[2022-10-27] MEDS: FAMOTIDINE 20 MG TAB PO SCH (08:49)
[2022-10-27] MEDS ORDERED: lisinopril 5 MG TAB PO SCH (09:00)
[2022-10-27] MEDS ORDERED: ASPIRIN 81 MG ECTAB PO SCH (09:00)
[2022-10-27] MEDS ORDERED: LANTUS PER UNIT CHARGE SC SCH (09:00)
--- NOTE | 2022-10-27 11:25 | Nephrology Progress Note ---
Date of Service October 27, 2022 Assessment & Plan (1) ESRD (end stage renal disease): (2) Hyperkalemia: (3) Acute non-ST elevation myocardial infarction (NSTEMI): (4) Atrial fibrillation: (5) Hypertension: (6) Anemia: Plan ESRD secondary to microvascular disease with history of hypertension, diabetes, coronary artery disease, renal function has been declining over last few years and he has been ESRD for last few months. Creatinine was staying around 4 and since admission creatinine was staying around 4.5-4.6. Has all the stigmata of end-stage renal disease including hyperkalemia, metabolic acidosis, hyperphosphatemia and anemia. Admitted with NSTEMI, AFib with RVR, had cardiac catheterization on 10/24/22 showing multivessel coronary artery disease, will need CABG, plan to go to [facility] as an outpatient to see thoracic surgery. Had right IJ tunneled dialysis catheter yesterday without any complication. -- HD now via TDC -- left arm nephrology precaution for future vascular access -- dose medications for EGFR less than 10 -- start on Renal cap and phos binder. -- waiting on outpatient dialysis set up at [facility]. Admission and Anticipated Discharge Date Admission Date: October 23, 2022 Darius Bobo has been overall doing well, asymptomatic, no shortness of breath or chest pain with usual activities. Had right IJ tunneled dialysis catheter yesterday, did not have any bleeding complication. Plan for 3 hours dialysis today. Review of Systems Review of Systems: Detailed review of system was otherwise unremarkable except mentioned above. Physical Exam Constitutional: WD/WN, vitals as above no acute distress Eyes: + anicteric sclerae Neck: normal visual inspection Respiratory: Auscultation: lungs clear to auscultation bilaterally Cardiovascular: Rate/Rhythm: + irregularly irregular Extremities: + vascular access device (Rt IJ TDC); no edema Skin: no rashes Neurologic: no focal motor deficits Psychiatric: Orientation: alert and oriented x 3 Affect: euthymic affect Results & Data Vital Signs (Past 12 Hours) Vital Signs Temp Pulse Pulse Pulse Pulse Resp BP 10/27/22 11:00 78 122/84 10/27/22 10:30 77 137/78 10/27/22 10:00 83 145/80 H 10/27/22 09:36 83 138/79 10/27/22 09:29 36.6 C 72 10/27/22 08:57 10/27/22 08:03 35.9 C L 85 18 10/27/22 07:00 77 10/27/22 07:02 94 H 17 10/27/22 04:48 36.8 C 62 18 BP Pulse Ox O2 Del Method 10/27/22 11:00 10/27/22 10:30 10/27/22 10:00 10/27/22 09:36 10/27/22 09:29 10/27/22 08:57 Room Air 10/27/22 08:03 143/84 H 97 Room Air 10/27/22 07:00 10/27/22 07:02 97 Room Air 10/27/22 04:48 138/88 97 Room Air PG Care Time/CCT Total # of Minutes Spent Total Time Spent with Patient: Total time spent is greater than 50% in coordination of care (as documented) at patient's floor/unit and/or counseling patient: Coding Level of Care Code 10108 SUB INP/OBS CARE 3/50MIN Diagnoses ESRD (end stage renal disease) N18.6 Hyperkalemia E87.5 Acute non-ST elevation myocardial infarction (NSTEMI) I21.4 Atrial fibrillation I48.91 Atrial fibrillation type: unspecified Hypertension I10 Anemia D64.9 (4) Atrial fibrillation Atrial fibrillation type: unspecified Qualified Code(s): I48.91 - Unspecified atrial fibrillation
--- NOTE | 2022-10-27 12:05 | Discharge Summary ---
Date of Service October 27, 2022 Admission HPI Per Admitting Provider Mr. 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 Kong), type 2 diabetes, [id number] hypertension, stage III/IV chronic kidney disease (baseline creatinine 2-2.4), and questionable prior CVA with visual disturbance who presented to the [facility] ED on 10/23/22 with complaints of cough and chest pain. In the ED the patient was found to be afebrile, hemodynamically stable, and stable on RA. Labs were remarkable for a cr of 4.80 (Baseline appears to be closer to 4.3), potassium of 5.4, chloride of 112, and initial high sen trop of 626. Chest xray was read as "No acute cardiopulmonary findings.". Prior to admission the patient was given 500 mL NSS and 324 mg Aspirin. At the time of the exam the patient was sitting in bed in no acute distress with his sitting bedside. He states that he started to develop increased wheezing and SOB. He attributed this to possible bronchitis/COPD exacerbation due to being around his grandson last week who had a URI. He has been more SOB both at rest and with exertion over the past week. He has noticed increased cough without much sputum production over the past week. He has been using his albuterol inhaler which provides temporary relief. When asked about chest pain he explains that he typically has daily angina at baseline, often occurring at night. Over the past week he has continued to experience substernal chest pain both at rest and with exertion. This often radiates to his neck and BL arms at baseline. His symptoms resolve with nitroglycerine and his typical Carvedilol and Imdur. He has not had any chest pain at the time of the exam, his last episode of chest pain was yesterday evening. He denies recent fever, chills, changes in vision, hearing, taste, smell, abd pain, nausea, vomiting, diarrhea, dysuria, hematuria, melena, bloody BM's, increased LE swelling, and recent trauma. When asked, the patient confirms that he is still urinating consistently. I explained that he is currently back in afib and his cr is currently 4.8. We discussed the possibility of dialysis if his renal function would continue to decline, he is interested in dialysis if needed. I also explained that we would like to start a heparin drip at this time due to his persistent afib with increased stroke risk and possible NSTEMI, he and his are in agreement with starting a heparin drip. He denies a history of major bleeding and recent ischemic or hemorrhagic stroke. We discussed code status, the patient wishes to be a Full Code and for his to make medical decisions for him if he could not make them herself. Please refer to Dr. Bradshaw's attestation for any changes to the treatment plan. Admission Exam Per Admitting Provider General:In no acute distress, stated age, well-nourished, good hygiene HEENT:Normocephalic, atraumatic, no scleral icterus, pupils around round, symmetrical, and reactive to light, moist mucus membranes, trachea midline, no thyromegaly Chest/Pulm:No respiratory distress, symmetrical chest expansion, expiratory wheezing noted throughout Cardiac:irregular rate and rhythm, no murmurs noted Abdomen:Negative for ascites and bruising, normoactive bowel sounds, soft, non-tender to palpation throughout Musculoskeletal:Symmetrical and without signs of acute trauma, upper and lower extremities with full ROM, no atrophy, spasticity, or flaccidity Extremities:Radial, dorsalis pedis, and posterior tibial pulses are intact and symmetrical, no edema noted in the BL LE's Skin:Warm, dry, no rashes , lesions, or scars noted Neuro:Alert and oriented to person, place, month, year, and president, no focal defects, CN II-XII tested and intact, finger to nose test negative, no tremors noted Psych:No acute distress, calm and cooperative during the exam Principal Diagnosis 35 Discharge Exam General: Awake, conversant. Appears calm. No distress. Heart: S1, S2/regular rate and rhythm, no murmur rubs or gallops Lungs: Clear to auscultation bilaterally. Normal effort Abdomen: Soft/nontender/nondistended. No hepatosplenomegaly Extremities: No clubbing/cyanosis. No edema Behavior: Appropriate, cooperative Discharge Data Allergies Allergy/AdvReac Type Severity Reaction Status Date / Time No Known Drug Allergies Allergy Verified 10/23/22 16:54 Consultations 10/23/22 16:36 ED Decision to Admit Stat 10/23/22 17:33 Consult Nephrology Routine 10/23/22 17:43 Consult Cardiology Routine 10/26/22 13:26 Consult General Surgery Routine 10/27/22 07:23 Consult [facility] [employer] Routine Procedures Performed Operation Date: 10/26/22 08:55 Actual Procedures p Removal Right Internal Jugular Catheter, Replacement Right internal Jugular Dialysis Catheter(Right) - Kirby Armenta, Ordered Studies 10/24/22 09:59 CL Cath Imgs for PACS use only Routine 10/26/22 16:00 FL chest 1V frontal Routine Hospital Course (1) Acute non-ST elevation myocardial infarction (NSTEMI): Patient presented with chest pain and his troponin went up from 500s to 700s. He had acute non-ST elevation IA Decision was made to proceed towards cardiac catheterization and then dialysis after Cardiac catheterization on 10/24 showed general worsening of his coronary disease but no particular culprit blood vessel that was intervenable. Cardiology recommends outpatient follow-up with tertiary care center to consider revascularization. For the time being, continue medical management. Baby aspirin was started. Lisinopril low-dose was added to his regimen now that he is on dialysis. Heparin drip was discontinued. Started on Eliquis due to A-fib Continue Lipitor 80, Coreg 12.5 twice daily. 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 (2) Atrial fibrillation: -Hx of Paroxysmal Afib, not previously on AC as he is typically in NSR and the patient wanted to try and avoid bleeding risks -He presented with A-fib this hospitalization. -Heparin drip discontinued Eliquis started after clearance from surgery post dialysis catheter placement No more on amiodarone as he has converted to sinus rhythm Rate controlled Continue Coreg (3) ESRD (end stage renal disease): -Patient had CKD stage V to begin with, now started on dialysis postcardiac catheterization He was set up for outpatient dialysis to start on 10/31. Case management on board. He now has a tunneled dialysis catheter. (4) SOB (shortness of breath): -This was most likely cardiac in etiology as his shortness of breath resolved Discontinue azithromycin and prednisone No wheezing at this time (5) Chest pain: -See elevated trop and SOB (6) Hypertension: -Stable -Continue amlodipine and Carvedilol. May consider adding lisinopril for cardiac benefits (7) T2DM (type 2 diabetes mellitus): -Monitor BSG ACHS for now, goal is 110-140 -Will start with conservative regimen due to his currently controlled BSG and ESRD -Hold basal insulin for now, CF of 50 and CR of 15 -Adjust regimen as needed -Pharmacy Glyemic consult ordered due to starting steroid for possible COPD exacerbation (8) Coronary artery disease: Please see above (9) Dyslipidemia: -Continue atorvastatin (10) Elevated troponin: Total Time Total Time Spent Total Time Spent (In Minutes): 35 Discharge Plan Discharge Items Patient Disposition: Home - Self-Care Reason For Visit: COUGH, CHEST PAIN, SOB Discharge Diagnosis: NSTEMI, Progressive 3 vessel Coronary Artery Disease on medical management End-stage renal disease started on dialysis Activity: Resume your previous activity Non-emergency contact: Primary Care Provider Call non-emergency contact if: you have any medication questions and your symptoms worsen Follow-up/Referrals: Petr Blake MD [Primary Care Provider] - Luciano Bellamy PA-C [Physician Sorority Mother] - 11/01/22 2:30 pm (Please arrive 15 minutes prior to appointment) Inga Espitia CRNP [Nurse Practitioner] - 10/30/22 11:00 am (Please arrive 15 minutes prior to appointment) Diet: Dialysis Renal and Heart Healthy Addtl Attending Provider Instructions: Advised to follow-up with PCP in 1 week Advised to follow-up with cardiology in 2 weeks Advised to note that you have been started on dialysis and have been set up for outpatient dialysis. Please keep the appointment for outpatient dialysis per schedule Pending Studies at Discharge: No Stand-Alone Forms: My [facility] [employer] Medications and DC Order Prescriptions: New lisinopril [Zestril] 5 mg Tablet 5 mg PO QAM 30 Days Qty: 30 0RF Eliquis 5 mg tablet 5 mg PO BID 30 Days Qty: 60 0RF aspirin 81 mg tablet,chewable 81 mg PO DAILY Qty: 30 0RF Continued atorvastatin 80 mg tablet 80 mg PO HS Qty: 90 3RF carvedilol 12.5 mg tablet 12.5 mg PO BID Qty: 180 3RF (DME) FreeStyle Lite Strips Strip See Rx Instructions .Route Qty: 200 0RF Rx Instructions: test 2 times daily isosorbide mononitrate 30 mg tablet extended release 24 hr 30 mg PO BID Qty: 180 3RF calcitriol 0.25 mcg capsule 0.25 mcg PO DAILY Qty: 90 3RF Tresiba FlexTouch U-100 100 unit/mL (3 mL) insulin pen See Rx Instructions .ROUTE .COMPLEX Qty: 15 3RF Dose Instruction: INJECT 24 UNITS SUBCUTANEOUSLY AT BEDTIME Rx Instructions: INJECT 10-14 UNITS SUBCUTANEOUSLY AT BEDTIME nitroglycerin 0.4 mg tablet, sublingual 0.4 mg Sublingual UD PRN (Reason: Angina) Qty: 30 3RF albuterol sulfate [Ventolin HFA] 90 mcg/actuation HFA aerosol inhaler 1 - 2 puff inhalation Q6H PRN (Reason: Shortness Of Breath Or Wheezing) insulin aspart U-100 [Novolog FlexPen U-100 Insulin] 100 unit/mL (3 mL) insulin pen 0 unit subcut TID MDD 18 units Rx Instructions: Pt is supposed to inject 0-18 units TID per sliding scale. However pt has been without this medication for a little over a month due to cost of medication. Discontinued amlodipine 5 mg tablet 5 mg PO DAILY Qty: 90 3RF Discharge Orders: Discharge Order (Routine); Ordered 10/27/22 Ordered By: Maurilio Mai Admission Data Admit Date/Time: 10/23/22 16:53 Attending Provider: Maurilio Mai Admit Provider: Petr Bradshaw Primary Care Provider: Petr Blake Other Providers: Petr Bradshaw ; Winter Interiano ; Jeramie Salmeron ; Kirby Armenta Other Interventions: Discharge Summary Assessment (RN) Last Done: 10/27/22 13:25 Coding Level of Care Code 58512 INP/OBS DISCH >30 MIN Diagnoses Acute non-ST elevation myocardial infarction (NSTEMI) I21.4 Atrial fibrillation I48.91 Atrial fibrillation type: unspecified ESRD (end stage renal disease) N18.6 SOB (shortness of breath) R06.02 Chest pain R07.9 Hypertension I10 T2DM (type 2 diabetes mellitus) E11.9 Coronary artery disease I25.10 Dyslipidemia E78.5 Elevated troponin R77.8
[2022-10-27] MEDS: carvediloL 12.5 MG TAB PO SCH (13:24)
[2022-10-27] MEDS: ISOSORBIDE MONO EXTENDED REL 30 MG TABCR PO SCH (13:33)
== END 2022-10-27 14:00 | disposition home or self-care (01) | DRG 280 ==
LOC: ED 14:37 → SUATTDRO 16:53 → 2S 16:53 → 1E 10-24 12:54 → 2N 10-25 23:48
PROC: CLB.CCO (2022-10-24 11:00)

== ENCOUNTER 2022-11-21 05:24 | Inpatient (IN) ==
[2022-11-21] MEDS ORDERED: FUROSEMIDE 40 MG/4 ML VIAL IV ONE ×2 (05:30→06:22)
[2022-11-21] MEDS ORDERED: NITROGLYCERIN 2% OINTMENT 30GM TUBE EXT STA (05:42)
[2022-11-21] MEDS ORDERED: RAPID SEQUENCE INDUCTION BAG ONE (05:43)
[2022-11-21] MEDS ORDERED: ONDANSETRON INJ 2 MG/ML 2 ML VIAL ONE (05:59)
[2022-11-21] MEDS ORDERED: ONDANSETRON INJ 2 MG/ML 2 ML VIAL IV STA (05:59)
[2022-11-21 06:03] LABS: Basophils # (auto) 0.11 K/uL (0-0.2); Basophils % (auto) 0.7 %; Eosinophils # (auto) 0.24 K/uL (0-0.50); Eosinophils % (auto) 1.5 %; Hematocrit (blood only) 43.2 % (42.0-52.0); Hemoglobin 13.9 g/dl (14.0-18.0); Immature Granulocytes # (auto) 0.08 K/uL (0.01-0.20); Immature Granulocytes % (auto) 0.5 %; Lymphocytes # (auto) 2.35 K/uL (1.2-3.4); Lymphocytes % (auto) 14.3 %; Mean Corpuscular Hemoglobin 29.2 pg (25.0-34.0); Mean Corpuscular Hgb Conc 32.2 g/dL (32.0-36.0); Mean Corpuscular Volume 90.8 fL (80.0-100.0); Mean Platelet Volume 10.9 fL (9.4-12.4); Monocytes # (auto) 1.18 K/uL (0.11-0.59); Monocytes % (auto) 7.2 %; Neutrophils # (auto) 12.47 K/uL (1.40-6.50); Neutrophils % (auto) 75.8 %; Platelet Count 206 K/uL (130-400); RDW Coefficient of Variation 15.9 % (11.5-14.5); RDW Standard Deviation 52.8 fL (36.4-46.3); Red Blood Count 4.76 M/uL (4.70-6.10); White Blood Count 16.43 K/ul (4.8-10.8)
[2022-11-21] MEDS ORDERED: CEFEPIME 2,000 MG/20 ML VIAL IV STA (06:23)
[2022-11-21 06:25] LABS: INR 1.1 (0.9-1.1); Prothrombin Time 11.9 Seconds (9.0-12.0)
[2022-11-21 06:41] LABS: Albumin Globulin Ratio 1.3 (0.9-2); Albumin Level 4.1 gm/dl (3.4-5.0); BUN Creatinine Ratio 16.8 (10-20); Bilirubin,Total 0.4 mg/dl (0.2-1.0); Calcium 8.6 mg/dl (8.6-10.3); Est GFR (African American) 11.2 ml/min; Est GFR (Non-African American) 9.7 ml/min; Globulin 3.1 gm/dl (2.5-4.0); Magnesium 2.6 mg/dl (1.7-2.4); Phosphorus 8.2 mg/dl (2.5-4.9); Potassium 5.5 mmol/L (3.5-5.1); Total Protein 7.2 gm/dl (6.0-8.3); Troponin I High Sensitivity 3996.2 pg/ml (0-20)
[2022-11-21] MEDS ORDERED: ISOSORBIDE MONO EXTENDED REL 30 MG TABCR PO ONE (06:42)
[2022-11-21] MEDS ORDERED: lisinopril 5 MG TAB PO ONE (06:42)
--- NOTE | 2022-11-21 06:44 | History & Physical Report ---
Date of Service November 21, 2022 Assessment & Plan (1) Acute respiratory failure with hypoxia: Plan: 72yo male with history of multivessel CAD, ICM with EF of 35-40%, ESRD on HD presenting with acute onset SOB, acute hypoxic respiratory failure requiring rescue BiPAP. Saturations presently maintained - 100% on FiO2 40%. Suspect pulmonary edema/volume overload, hypertension contributing Patient given Lasix 80mg IV, Nitro paste. Managing with BiPAP for now -Monitor UOP -Check ABG -BP control - Lisinopril and Isosorbide -Nephrology consulted - appreciate assistance -Empiric Cefepime 2gm IV daily (2) Cardiomyopathy, ischemic: Plan: EF of 35-40%. Suspect pulmonary edema, need for HD, hypertension contributing to current respiratory distress. Lasix 40mg IV given - Devi in place with a small amount of clear yellow urine -Continue Lisinopril -Isosorbide -Continue Carvedilol (3) ESRD (end stage renal disease): Plan: Patient new to HD. Receives treatment T/R/S. Reports he still makes urine -Lasix given, monitor output -Nephrology consulted -Continue Calcitriol (4) CAD, multiple vessel: Plan: Elevated troponin. Patient with recent NSTEMI with troponin peak of over 18,000. -Continue ASA, Atorvastatin, Carvedilol -Continue Isosorbide and Lisinopril -Trend troponin -Telemetry monitoring (5) Elevated troponin: Plan: Patient denies chest pain. Elevated troponin - possibly residual following recent NSTEMI -Trend troponin -Telemetry monitoring -Continue cardiac medications (6) Atrial fibrillation: Plan: Mild tachycardia on arrival -Continue Carvedilol -Continue Apixaban (7) Hypertension: Plan: Blood pressure elevated in the ER, possibly contributing to patient's acute respiratory distress -Continue Lisinopril, Isosorbide -Remove Nitro -Hydralazine 5mg IV q 4 hours as needed for BP > 180/110 (8) T2DM (type 2 diabetes mellitus): Plan: Last HgbA1C on 09/05/22 = 8.1. With hyperglycemia currently, IGB=082 -Lantus 7u BID, ISS -Goal blood sugar 110 - 140 -Pharmacy glycemic management consultation (9) Dyslipidemia: Plan: Chronic. -Continue Atorvastatin F/E/N - Heplock. Monitor electrolytes. NPO for now Ppx - On Apixaban Code - Full per discussion with patient Dispo - Admit to PCU History of Present Illness Chief Complaint: shortness of breath Primary Care Provider: Petr Blake MD Jeramie Joseph is a pleasant 72yo male with history of multivessel CAD with prior stenting to LAD and RCA, recent admission to [facility] from 10/23/22 - 10/27/22 for NSTEMI, Ischemic cardiomyopathy with EF of 35-40% per echo 10/24/22, Hemodialysis T/R/S (newly initiated during last hospitalization) as well as DM, HTN, HLP, PAF and COPD presenting with acute SOB. History is limited as patient is presently with BiPAP in place, speaking in short sentences. He reports acute onset SOB this AM at 02:00 which woke him from sleep. SOB has progressively worsened. He denies chest pain, palpitations, dizziness, syncope. Denies abdominal pain, nausea, vomiting, diarrhea. Denies fever, chills, cough, sweats. Patient reports compliance with his HD sessions T/R/S and has not missed any treatments. Reports he is compliant with his medications as we ll. Per EMS patient hypoxic on room air to 82-86% with diffuse crackles. He was administered Nitro spray and a DuoNeb en route. Upon arrival to the ER he was with elevated HR=99, BP 153/104, RR=32 with labored respirations. He was initially placed on 10L NRB then transitioned to BiPAP. Patient is awake and alert. Answering questions. Speaking in 1-2 word sentences. BiPAP presently 16/8, 40% FiO2 Prior hospitalization 10/23/22 - 10/27/22 with acute NSTEMI - troponin peaked at 18,694.8 on 10/25/22. Patient had a cardiac catheterization performed on 10/24/22 which revealed severe multivessel CAD with progression from prior catheterization. No acute thrombotic lesion/culprit for ACS. He is to be referred to a tertiary care center with CT Surgery capability to discuss his complex revascularization needs. Patient had a right IJ temporary HD catheter placed. Tunneled IJ catheter placed 10/26/22 by General Surgery. ER Course: Cefepime 2gm Lasix 40mg IV + 40mg IV Zofran 4mg IV Nitro 1 inch Patient's home Lisinopril 5mg and Isosorbide ER 30mg ordered to assist with BP management - not yet administered Allergies Allergy/AdvReac Type Severity Reaction Status Date / Time No Known Drug Allergies Allergy Verified 11/20/22 14:07 Home Medications Medication Instructions Recorded Confirmed Type atorvastatin 80 mg tablet 80 mg PO HS #90 tabs 09/16/21 11/20/22 Rx albuterol sulfate 90 mcg/actuation 1 - 2 puff inhalation Q6H PRN 09/29/21 11/20/22 History aerosol inhaler (Ventolin HFA) Shortness Of Breath Or Wheezing nitroglycerin 0.4 mg sublingual 0.4 mg sublingual UD PRN Angina 12/27/21 11/20/22 Rx tablet #30 tabs calcitriol 0.25 mcg capsule 0.25 mcg PO DAILY #90 caps 05/04/22 11/20/22 Rx isosorbide mononitrate 30 mg 30 mg PO BID #180 tabs 05/04/22 11/20/22 Rx tablet,extended release 24 hr carvedilol 12.5 mg tablet 12.5 mg PO BID #180 tabs 11/16/22 05/15/23 Rx insulin degludec 100 unit/mL (3 See Rx Instructions .Route 08/22/22 11/20/22 Rx mL) subcutaneous pen (Tresiba .COMPLEX #15 mL FlexTouch U-100 insulin) FreeStyle Lite Strips (blood sugar #200 ea 08/28/22 11/20/22 Rx diagnostic) insulin aspart U-100 100 unit/mL 0 unit subcut TID 10/23/22 11/20/22 History (3 mL) subcutaneous pen (Novolog FlexPen U-100 Insulin aspart) aspirin 81 mg chewable tablet 81 mg PO DAILY #30 tabs 10/27/22 11/20/22 Rx apixaban 2.5 mg tablet (Eliquis) 2.5 mg PO Q12H #180 tabs 11/01/22 11/20/22 Rx lisinopril 5 mg tablet (Zestril) 5 mg PO QAM 3 months #90 tabs 11/01/22 11/20/22 Rx Past Med/Surg History Medical History Anemia Asthma d/t asbestos--inhaler prn Atrial fibrillation takes aspirin daily--follows with Dr. Galindo Carpal tunnel syndrome, bilateral Cholelithiasis Chronic kidney disease, stage 2 (mild) Chronic kidney disease, stage 3 Coronary artery disease Diabetes mellitus with insulin therapy Diabetes mellitus, type 2 Diabetic nephropathy associated with type 2 diabetes mellitus Dyslipidemia History of diabetic retinopathy Hyperkalemia Hyperlipidemia Hypertension Hypertension Myocardial Infarction 2015 Pancreatitis Paroxysmal atrial fibrillation T2DM (type 2 diabetes mellitus) Vitamin D deficiency Surgical History History of cardiac cath 2015x2 @ [facility] in [place], [place]--4 stents placed History of colonoscopy History of endoscopic sinus surgery History of left inguinal hernia repair History of surgery (10/26/22) Removal Right Internal Jugular Catheter, Replacement Right internal Jugular Dialysis Catheter(Right) - Kirby Armenta DO History of tooth extraction Hx of vasectomy Family History Father Myocardial infarction Cardiac disorder Hypertension Brother Cardiac disorder Hypertension Other No family history of adverse response to anesthesia Social History Smoking Status: Never smoker Second Hand Exposure: No; Do You Dip or Chew Tobacco: No; Hx Alcohol Use: No Hx Substance Use: No Preferred Language: Khmer Communication Ability: Effective Visual Impairment: Limited Hearing Ability: Normal 4Th Grade Teacher Required: No Beliefs That Will Affect Care: Protestant Protestant Beliefs: Rastafarian/ Christianity marital status: Current Living Situation: Significant Other current occupational status: employed 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 [employer] Feels Safe at Home: Yes Childhood Exposure to Second-Hand Smoke: Yes caffeine: Yes Dental Care, Regularly: No Physical Activity Frequency: Daily Seatbelt Use: always Sunscreen Use: Yes Assistive Devices: None Review of Systems Review of Systems: All systems reviewed & are unremarkable except as noted in HPI & below Physical Exam Physical Exam: General: patient awake and oriented, answering in 1-2 word sentences, BiPAP in place Skin: warm, dry, intact, no rashes or lesions HEENT: NC/AT, PERRL, EOMI, anicteric sclera, conjunctiva without injection, external ear normal to inspection and nontender, nares patent, moist mucus membranes, dentition intact, no oropharyngeal lesions, neck supple, trachea midline, no LAD, no thyromegaly, no JVD Heart: +S1/S2, regular, tachycardic, no m/r/g Lungs: moderate respiratory distress, accessory muscle use, BiPAP in place, equal air entry bilaterally, coarse breath sounds bilaterally, diminished in bases Abd: +BS, soft, NT/ND, no masses/organomegaly/ascites Ext: warm, 2+ pulses in UE/LE bilaterally, no clubbing/cyanosis or edema Neuro: nonfocal, patient AA&O x 4, speech intact, no facial droop, moving all extremities on command with equal strength 5/5 Results & Data Results & Data Vital Signs (Past 12 Hours) Vital Signs Temp Pulse Pulse Resp BP BP Pulse Ox 11/21/22 06:00 107 H 34 H 164/121 H 97 11/21/22 05:45 101 H 26 H 100 11/21/22 05:49 101 H 11/21/22 05:44 101 H 36 H 153/104 H 100 11/21/22 05:42 106 H 25 H 94 11/21/22 05:42 91 11/21/22 05:32 11/21/22 05:32 35 C L 99 H 32 H 153/104 H 99 O2 Del Method O2 Flow Rate FiO2 11/21/22 06:00 11/21/22 05:45 BiPAP 100 11/21/22 05:49 11/21/22 05:44 BiPAP 100 11/21/22 05:42 100 11/21/22 05:42 Non-rebreather 10 11/21/22 05:32 BiPAP 11/21/22 05:32 BiPAP Laboratory Results Laboratory Results WBC 16.43 K/ul (4.8-10.8) H 11/21/22 05:31 RBC 4.76 M/uL (4.70-6.10) 11/21/22 05:31 Hgb 13.9 g/dl (14.0-18.0) L 11/21/22 05:31 Hct 43.2 % (42.0-52.0) 11/21/22 05:31 MCV 90.8 fL (80.0-100.0) 11/21/22 05:31 MCH 29.2 pg (25.0-34.0) 11/21/22 05:31 MCHC 32.2 g/dL (32.0-36.0) 11/21/22 05:31 RDW Std Deviation 52.8 fL (36.4-46.3) H 11/21/22 05:31 RDW Coeff of Jocelyn 15.9 % (11.5-14.5) H 11/21/22 05:31 Plt Count 206 K/uL (130-400) 11/21/22 05:31 MPV 10.9 fL (9.4-12.4) 11/21/22 05:31 Immature Gran % (Auto) 0.5 % 11/21/22 05:31 Neut % (Auto) 75.8 % 11/21/22 05:31 Lymph % (Auto) 14.3 % 11/21/22 05:31 [place] % (Auto) 7.2 % 11/21/22 05:31 Eos % (Auto) 1.5 % 11/21/22 05:31 Baso % (Auto) 0.7 % 11/21/22 05:31 Neut # (Auto) 12.47 K/uL (1.40-6.50) H 11/21/22 05:31 Lymph # (Auto) 2.35 K/uL (1.2-3.4) 11/21/22 05:31 [place] # (Auto) 1.18 K/uL (0.11-0.59) H 11/21/22 05:31 Eos # (Auto) 0.24 K/uL (0-0.50) 11/21/22 05:31 Baso # (Auto) 0.11 K/uL (0-0.2) 11/21/22 05:31 Immature Gran # (Auto) 0.08 K/uL (0.01-0.20) 11/21/22 05:31 PT 11.9 Seconds (9.0-12.0) 11/21/22 05:31 INR 1.1 (0.9-1.1) 11/21/22 05:31 Sodium 134 mmol/L (136-145) L 11/21/22 05:31 Potassium 5.5 mmol/L (3.5-5.1) H 11/21/22 05:31 Chloride 99 mmol/L (98-107) 11/21/22 05:31 Carbon Dioxide 23 mmol/L (21-32) 11/21/22 05:31 Anion Gap 12 (3-11) H 11/21/22 05:31 BUN 92 mg/dl (6-23) H 11/21/22 05:31 Creatinine 5.47 mg/dl (0.6-1.4) H* 11/21/22 05:31 Est Cr Clr Drug Dosing 12.0 ml/min 11/21/22 05:31 Est GFR ( Amer) 11.2 ml/min 11/21/22 05:31 Est GFR (Non-Af Amer) 9.7 ml/min 11/21/22 05:31 BUN/Creatinine Ratio 16.8 (10-20) 11/21/22 05:31 Glucose 364 mg/dl (70-99(Fasting)) H* 11/21/22 05:31 Calcium 8.6 mg/dl (8.6-10.3) 11/21/22 05:31 Phosphorus 8.2 mg/dl (2.5-4.9) H 11/21/22 05:31 Magnesium 2.6 mg/dl (1.7-2.4) H 11/21/22 05:31 Total Bilirubin 0.4 mg/dl (0.2-1.0) 11/21/22 05:31 AST 76 U/L (13-39) H 11/21/22 05:31 ALT 25 U/L (7-52) 11/21/22 05:31 Alkaline Phosphatase 63 U/L (34-104) 11/21/22 05:31 Troponin I High Sens 3996.2 pg/ml (0-20) H* 11/21/22 05:31 Total Protein 7.2 gm/dl (6.0-8.3) 11/21/22 05:31 Albumin 4.1 gm/dl (3.4-5.0) 11/21/22 05:31 Globulin 3.1 gm/dl (2.5-4.0) 11/21/22 05:31 Albumin/Globulin Ratio 1.3 (0.9-2) 11/21/22 05:31 SARS-CoV-2, RNA, NAAT NEGATIVE (NEGATIVE) 11/21/22 05:57 Diagnostic Findings CXR - per my interpretation - patient with bibasilar airspace opacities R >L. Tunneled catheter in place. Fluid filled fissure noted on right ECG Additional Comments: EKG with ST at 101, EJ=527, BRQ=006 ,TUu=497. LBBB present - present on old studies as well PG Care Time/CCT Total # of Minutes Spent Total Time Spent with Patient: Total time spent is greater than 50% in coordination of care (as documented) at patient's floor/unit and/or counseling patient: Coding Level of Care Code 66547 INT INP/OBS CARE 3/75MIN Diagnoses Acute respiratory failure with hypoxia J96.01 Cardiomyopathy, ischemic I25.5 ESRD (end stage renal disease) N18.6 CAD, multiple vessel I25.10 Elevated troponin R77.8 Atrial fibrillation I48.91 Atrial fibrillation type: unspecified Hypertension I10 T2DM (type 2 diabetes mellitus) E11.9 Dyslipidemia E78.5 (6) Atrial fibrillation Atrial fibrillation type: unspecified Qualified Code(s): I48.91 - Unspecified atrial fibrillation
--- NOTE | 2022-11-21 06:56 | Emergency Department Note ---
Impression & Plan Acute respiratory failure with hypoxia, Atrial fibrillation, CKD (chronic kidney disease), Pulmonary edema ED Provider Note ED Provider Note NAME: LEYDA GARCIA AGE:72 SEX: Male : 1950 ARRIVES VIA: EMS INFORMANT: Patient, EMS ED PROVIDER(s): Tania Harman, CHIEF COMPLAINT: Shortness of breath HPI: This is a 72-year-old male brought in by EMS due to concern for abrupt onset of shortness of breath. Limited history initially from the patient due to increased work of breathing. EMS reports patient woke up abruptly at 2 AM with shortness of breath and symptoms did not improve. Upon their arrival he was 84% on room air with significant increased work of breathing. He was placed on a nonrebreather with supplemental oxygen at 15 L/min and oxygen saturations improved however he still had significant increased work of breathing and tachypnea. Patient with recent admission. He does have a history of heart problems and kidney problems and does go to dialysis. Patient states he is due for dialysis this morning. PAST MEDICAL HISTORY:See Below PAST SURGICAL HISTORY:See Below FAMILY HISTORY:See Below SOCIAL HISTORY:See Below HOME MEDICATIONS:See Below ALLERGIES:See Below VITALS:See Below PHYSICAL EXAMINATION: GENERAL: alert, unwell appearing, well nourished, moderate distress EYE EXAM: normal conjunctiva, PERRL and EOM's grossly intact OROPHARYNX: no exudate, no erythema, lips, buccal mucosa, and tongue normal and mucous membranes are moist NECK: supple, no nuchal rigidity, no adenopathy, non-tender LUNGS: Normal chest wall mechanics, tachypnea, increased work of breathing, bilateral rhonchi and rails, use of abdominal wall to aid with breathing, no other retractions noted HEART: no murmurs, S1 normal and S2 normal, dialysis catheter noted right anterior superior chest wall ABDOMEN: abdomen soft, non-tender, normo-active bowel sounds, no masses, no rebound or guarding. BACK: Back is symmetrical on inspection and there is no deformity, no midline tenderness, no CVA tenderness. SKIN: no rashes, petechiae, orbruising UPPER EXTREMITIES: upper extremities are grossly normal. FROM, nml pulses b/l. LOWER EXTREMITIES: Trace bilateral pitting edema. FROM, nml pulses b/l. NEURO EXAM: Normal sensorium, cranial nerves II-XII grossly intact, normal speech, no facial droop,nogross weakness of arms, no gross weakness of legs. Gross sensation intact. No ataxia. Vital Signs: reviewed and remarkable Differential Diagnosis: ACS, PE, CHF, pneumonia, pleural effusion, anemia, electrolyte abnormality, toxidrome, COPD exacerbation, as well as others were MEDICAL DECISION MAKING: This is a 72-year-old male brought in by EMS due to cute onset of difficulty breathing. He was noted to be hypoxic by EMS and placed on a nonrebreather, by arrival here despite the nonrebreather he was again hypoxic in the 80s with increased work of breathing and moderate distress. Patient was afebrile, and other vital signs were stable, he was noted to be mildly hypertensive. Labs drawn and sent, IV established, EKG and chest x-ray performed at bedside and interpreted by me, patient monitored on telemetry. While patient was being transferred to an ER bed, RT was contacted to bring BiPAP due to patient's work of breathing and audible rails. Patient had been given nitro prehospital, addit ional Nitropaste was added as well as IV Lasix. Patient rechecked numerous times due to tenuous status to monitor for any change in condition. We did discuss the possibility of intubation which patient would like to avoid. Patient is due to be dialyzed this morning. I did contact the hospitalist urgently as well to help facilitate admission, specialty consults, and dialysis this morning. Patient slowly had slight improvement in his condition. Due to slight asymmetry on chest x-ray, additional blood cultures and procalcitonin added as well as IV cefepime. Patient with abnormal labs consistent with chronic kidney disease, and also noted to have elevated troponin. I suspect this is likely due to increased demand due to hypoxia and increased work of breathing as patient already has cardiomyopathy, known CAD, and a decreased ejection fraction. Consultation(s): 614: Discussed with Dr. Duke, hospitalist service. ER Treatment Provided: See below Diagnostics Interpreted By Me: -ECG: Sinus tachycardia at 101, normal axis, left bundle branch block, ST depression noted in V5 and V6 worse compared to prior EKG from last admission -Cardiac Monitoring: An order was placed for continuous cardiac monitoring. The monitor shows a rate of 98 with normal sinus rhythm. -Laboratory studies: As stated above and show below. -Imaging studies: Chest x-ray: Appearance of interstitial edema bilaterally consistent with pulmonary edema, however slightly worse in the right lower lobe questionable evolving consolidation, dialysis catheter noted Triage Nursing Note Reviewed Prior/Outside Records Reviewed -prior discharge summary reviewed Critical Care: Critical care of 53 min performed to assess and manage high likelihood of life- threatening acute hypoxic respiratory failure, involving labs and imaging performed with assessment to evaluate acute hypoxic respiratory failure diagnosis with frequent reassessment. This time includes bedside time, treatm ent discussions with patient/family/consultants, documentation time and excludes procedure time. Past Med/Surg History Medical History Anemia Asthma d/t asbestos--inhaler prn Atrial fibrillation takes aspirin daily--follows with Dr. Galindo Carpal tunnel syndrome, bilateral Cholelithiasis Chronic kidney disease, stage 2 (mild) Chronic kidney disease, stage 3 Coronary artery disease Diabetes mellitus with insulin therapy Diabetes mellitus, type 2 Diabetic nephropathy associated with type 2 diabetes mellitus Dyslipidemia History of diabetic retinopathy Hyperkalemia Hyperlipidemia Hypertension Hypertension Myocardial Infarction 2015 Pancreatitis Paroxysmal atrial fibrillation T2DM (type 2 diabetes mellitus) Vitamin D deficiency Surgical History History of cardiac cath 2015x2 @ [facility] in [place], [place]--4 stents placed History of colonoscopy History of endoscopic sinus surgery History of left inguinal hernia repair History of surgery (10/26/22) Removal Right Internal Jugular Catheter, Replacement Right internal Jugular Dialysis Catheter(Right) - Kirby Armenta DO History of tooth extraction Hx of vasectomy Family History Father Myocardial infarction Cardiac disorder Hypertension Brother Cardiac disorder Hypertension Other No family history of adverse response to anesthesia Social History Smoking Status: Never smoker Second Hand Exposure: No; Do You Dip or Chew Tobacco: No; Hx Alcohol Use: No Hx Substance Use: No Preferred Language: Icelandic Communication Ability: Effective Visual Impairment: Limited Hearing Ability: Normal 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[employer] Required: No Beliefs That Will Affect Care: Pentecostal Pentecostal Beliefs: Scientology/ Latter-Day marital status: Current Living Situation: Significant Other current occupational status: employed 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 [employer] Feels Safe at Home: Yes Childhood Exposure to Second-Hand Smoke: Yes caffeine: Yes Dental Care, Regularly: No Physical Activity Frequency: Daily Seatbelt Use: always Sunscreen Use: Yes Assistive Devices: None Allergies Allergies Allergy/AdvReac Type Severity Reaction Status Date / Time No Known Drug Allergies Allergy Verified 11/20/22 14:07 Home Meds Home Medications Medication Instructions Recorded Confirmed albuterol sulfate 90 mcg/actuation 1 - 2 puff inhalation Q6H PRN 09/29/21 11/20/22 aerosol inhaler (Ventolin HFA) Shortness Of Breath Or Wheezing insulin aspart U-100 100 unit/mL 0 unit subcut TID 10/23/22 11/20/22 (3 mL) subcutaneous pen (Novolog FlexPen U-100 Insulin aspart) Previous Rx's Medication Instructions Recorded atorvastatin 80 mg tablet 80 mg PO HS #90 tabs 09/16/21 nitroglycerin 0.4 mg sublingual 0.4 mg sublingual UD PRN Angina 12/27/21 tablet #30 tabs calcitriol 0.25 mcg capsule 0.25 mcg PO DAILY #90 caps 05/04/22 isosorbide mononitrate 30 mg 30 mg PO BID #180 tabs 05/04/22 tablet,extended release 24 hr carvedilol 12.5 mg tablet 12.5 mg PO BID #180 tabs 05/24/22 insulin degludec 100 unit/mL (3 See Rx Instructions .Route 08/22/22 mL) subcutaneous pen (Tresiba .COMPLEX #15 mL FlexTouch U-100 insulin) FreeStyle Lite Strips (blood sugar #200 ea 08/28/22 diagnostic) aspirin 81 mg chewable tablet 81 mg PO DAILY #30 tabs 10/27/22 apixaban 2.5 mg tablet (Eliquis) 2.5 mg PO Q12H #180 tabs 11/01/22 lisinopril 5 mg tablet (Zestril) 5 mg PO QAM 3 months #90 tabs 11/01/22 Results & Data (ED) Vital Signs Vital Signs - 24 hr 11/21/22 05:32 11/21/22 05:32 11/21/22 05:42 Temperature 35 C L Temperature Source Axillary Pulse Rate 99 H Pulse Rate [Apical] Pulse Rate from SpO2 Sensor Respiratory Rate 32 H Respiratory Effort / Characteristics Labored Short of Breath Labored Short of Breath Respiratory Depth Deep Deep Blood Pressure 153/104 H Blood Pressure [Right Arm] Blood Pressure Mean 120 Blood Pressure Mean [Right Arm] Blood Pressure Position Sitting Blood Pressure Position [Right Arm] Pulse Oximetry 99 91 Oxygen Delivery Method BiPAP BiPAP Non-rebreather Oxygen Flow Rate 10 Fraction of Inspired Oxygen SaO2/FiO2 Ratio Sepsis Recent Fever Within 48 Hours No Sepsis New/Unexplained Change in Mental Status No Sepsis Action Taken by Nursing Physician Notified 11/21/22 05:42 11/21/22 05:44 11/21/22 05:49 Temperature Temperature Source Pulse Rate 106 H 101 H Pulse Rate [Apical] 101 H Pulse Rate from SpO2 Sensor Respiratory Rate 25 H 36 H Respiratory Effort / Characteristics Labored Short of Breath Labored Short of Breath Respiratory Depth Deep Blood Pressure Blood Pressure [Right Arm] 153/104 H Blood Pressure Mean Blood Pressure Mean [Right Arm] 120 Blood Pressure Position Blood Pressure Position [Right Arm] Sitting Pulse Oximetry 94 100 Oxygen Delivery Method BiPAP Oxygen Flow Rate Fraction of Inspired Oxygen 100 100 SaO2/FiO2 Ratio 100 Sepsis Recent Fever Within 48 Hours Sepsis New/Unexplained Change in Mental Status Sepsis Action Taken by Nursing 11/21/22 05:45 11/21/22 06:00 11/21/22 06:15 Temperature Temperature Source Pulse Rate 101 H 107 H 97 H Pulse Rate [Apical] Pulse Rate from SpO2 Sensor 101 H 107 H 97 H Respiratory Rate 26 H 34 H 18 Respiratory Effort / Characteristics Respiratory Depth Blood Pressure 164/121 H Blood Pressure [Right Arm] Blood Pressure Mean 135 Blood Pressure Mean [Right Arm] Blood Pressure Position Blood Pressure Position [Right Arm] Pulse Oximetry 100 97 100 Oxygen Delivery Method BiPAP Oxygen Flow Rate Fraction of Inspired Oxygen 100 SaO2/FiO2 Ratio Sepsis Recent Fever Within 48 Hours Sepsis New/Unexplained Change in Mental Status Sepsis Action Taken by Nursing 11/21/22 06:30 Temperature Temperature Source Pulse Rate 100 H Pulse Rate [Apical] Pulse Rate from SpO2 Sensor 100 H Respiratory Rate 23 Respiratory Effort / Characteristics Respiratory Depth Blood Pressure 162/108 H Blood Pressure [Right Arm] Blood Pressure Mean 126 Blood Pressure Mean [Right Arm] Blood Pressure Position Blood Pressure Position [Right Arm] Pulse Oximetry 100 Oxygen Delivery Method Oxygen Flow Rate Fraction of Inspired Oxygen SaO2/FiO2 Ratio Sepsis Recent Fever Within 48 Hours Sepsis New/Unexplained Change in Mental Status Sepsis Action Taken by Nursing Laboratory Data 11/21/22 05:31 11/21/22 05:31 Lab Results 11/21/22 11/21/22 11/21/22 Range/Units 05:31 05:31 05:31 WBC 16.43 H (4.8-10.8) K/ul RBC 4.76 (4.70-6.10) M/uL Hgb 13.9 L (14.0-18.0) g/dl Hct 43.2 (42.0-52.0) % MCV 90.8 (80.0-100.0) fL MCH 29.2 (25.0-34.0) pg MCHC 32.2 (32.0-36.0) g/dL RDW Std Deviation 52.8 H (36.4-46.3) fL RDW Coeff of Jocelyn 15.9 H (11.5-14.5) % Plt Count 206 (130-400) K/uL MPV 10.9 (9.4-12.4) fL Immature Gran % (Auto) 0.5 % Neut % (Auto) 75.8 % Lymph % (Auto) 14.3 % Lipscomb % (Auto) 7.2 % Eos % (Auto) 1.5 % Baso % (Auto) 0.7 % Neut # (Auto) 12.47 H (1.40-6.50) K/uL Lymph # (Auto) 2.35 (1.2-3.4) K/uL Lipscomb # (Auto) 1.18 H (0.11-0.59) K/uL Eos # (Auto) 0.24 (0-0.50) K/uL Baso # (Auto) 0.11 (0-0.2) K/uL Immature Gran # (Auto) 0.08 (0.01-0.20) K/uL PT 11.9 (9.0-12.0) Seconds INR 1.1 (0.9-1.1) Sodium 134 L (136-145) mmol/L Potassium 5.5 H (3.5-5.1) mmol/L Chloride 99 (98-107) mmol/L Carbon Dioxide 23 (21-32) mmol/L Anion Gap 12 H (3-11) BUN 92 H (6-23) mg/dl Creatinine 5.47 H* (0.6-1.4) mg/dl Est Cr Clr Drug Dosing 12.0 ml/min Est GFR ( Amer) 11.2 ml/min Est GFR (Non-Af Amer) 9.7 ml/min BUN/Creatinine Ratio 16.8 (10-20) Glucose 364 H* (70-99(Fasting)) mg/dl Calcium 8.6 (8.6-10.3) mg/dl Phosphorus 8.2 H (2.5-4.9) mg/dl Magnesium 2.6 H (1.7-2.4) mg/dl Total Bilirubin 0.4 (0.2-1.0) mg/dl AST 76 H (13-39) U/L ALT 25 (7-52) U/L Alkaline Phosphatase 63 (34-104) U/L Troponin I High Sens 3996.2 H* (0-20) pg/ml Total Protein 7.2 (6.0-8.3) gm/dl Albumin 4.1 (3.4-5.0) gm/dl Globulin 3.1 (2.5-4.0) gm/dl Albumin/Globulin Ratio 1.3 (0.9-2) Procalcitonin (0-0.5) ng/ml SARS-CoV-2, RNA, NAAT (NEGATIVE) 11/21/22 11/21/22 Range/Units 05:31 05:57 WBC (4.8-10.8) K/ul RBC (4.70-6.10) M/uL Hgb (14.0-18.0) g/dl Hct (42.0-52.0) % MCV (80.0-100.0) fL MCH (25.0-34.0) pg MCHC (32.0-36.0) g/dL RDW Std Deviation (36.4-46.3) fL RDW Coeff of Jocelyn (11.5-14.5) % Plt Count (130-400) K/uL MPV (9.4-12.4) fL Immature Gran % (Auto) % Neut % (Auto) % Lymph % (Auto) % Lipscomb % (Auto) % Eos % (Auto) % Baso % (Auto) % Neut # (Auto) (1.40-6.50) K/uL Lymph # (Auto) (1.2-3.4) K/uL Lipscomb # (Auto) (0.11-0.59) K/uL Eos # (Auto) (0-0.50) K/uL Baso # (Auto) (0-0.2) K/uL Immature Gran # (Auto) (0.01-0.20) K/uL PT (9.0-12.0) Seconds INR (0.9-1.1) Sodium (136-145) mmol/L Potassium (3.5-5.1) mmol/L Chloride (98-107) mmol/L Carbon Dioxide (21-32) mmol/L Anion Gap (3-11) BUN (6-23) mg/dl Creatinine (0.6-1.4) mg/dl Est Cr Clr Drug Dosing ml/min Est GFR ( Amer) ml/min Est GFR (Non-Af Amer) ml/min BUN/Creatinine Ratio (10-20) Glucose (70-99(Fasting)) mg/dl Calcium (8.6-10.3) mg/dl Phosphorus (2.5-4.9) mg/dl Magnesium (1.7-2.4) mg/dl Total Bilirubin (0.2-1.0) mg/dl AST (13-39) U/L ALT (7-52) U/L Alkaline Phosphatase (34-104) U/L Troponin I High Sens (0-20) pg/ml Total Protein (6.0-8.3) gm/dl Albumin (3.4-5.0) gm/dl Globulin (2.5-4.0) gm/dl Albumin/Globulin Ratio (0.9-2) Procalcitonin 0.14 (0-0.5) ng/ml SARS-CoV-2, RNA, NAAT NEGATIVE (NEGATIVE) Administered Medications Discontinued Medications Furosemide (Furosemide 40 Mg/4 Ml Vial) 40 mg IV ONE ONE Stop: 11/21/22 05:31 Last Admin: 11/21/22 05:36 Dose: 40 mg Documented By: KEILA Furosemide (Furosemide 40 Mg/4 Ml Vial) 40 mg IV ONE ONE Stop: 11/21/22 06:23 Last Admin: 11/21/22 06:30 Dose: 40 mg Documented By: GINGER Cefepime HCl (Maxipime) 2,000 mg in 20 mls @ 5 mls/min IV NOW STA; Protocol Stop: 11/21/22 06:26 Last Admin: 11/21/22 06:44 Dose: 5 mls/min Documented By: ANAYA Isosorbide Mononitrate (Isosorbide Lipscomb Extended Rel 30 Mg Tabcr) 30 mg PO NOW ONE Stop: 11/21/22 06:43 Last Admin: 11/21/22 07:30 Dose: 30 mg Documented By: AMPARO Lisinopril (Lisinopril 5 Mg Tab) 5 mg PO NOW ONE Stop: 11/21/22 06:43 Last Admin: 11/21/22 07:30 Dose: 5 mg Documented By: AMPARO Nitroglycerin (Nitroglycerin 2% Ointment 30gm Tube) 1 inch EXT NOW STA Stop: 11/21/22 05:43 Last Admin: 11/21/22 05:55 Dose: 1 inch Documented By: GINGER Ondansetron HCl (Ondansetron Inj 2 Mg/Ml 2 Ml Vial) 4 mg IV NOW STA Stop: 11/21/22 06:00 Last Admin: 11/21/22 06:01 Dose: 4 mg Documented By: KEENA Ondansetron HCl (Ondansetron Inj 2 Mg/Ml 2 Ml Vial) Confirm Administered Dose 4 mg .ROUTE .STK-MED ONE Stop: 11/21/22 06:00 Last Admin: 11/21/22 06:01 Dose: Not Given Documented By: KEENA Imaging Data Radiologist's Impression: Chest X-Ray 11/21/22 05:30 XR chest 1V portable HISTORY: 72 years-old Male sob acute shortness of breath COMPARISON: 10/26/2022 TECHNIQUE: AP view of the chest FINDINGS: Cardiac silhouette is enlarged. Right IJ dual-lumen hemodialysis catheter distal tip is noted within the expected location of the inferior SVC. No postprocedural pneumothorax identified. Pulmonary vascular congestion with interstitial coarsening. Right greater than left bibasilar consolidation with probable small pleural effusions. Degenerative changes of the shoulders and spine. IMPRESSION: 1. Right IJ dual-lumen hemodialysis catheter in place. No pneumothorax. 2. Cardiomegaly with pulmonary edema and small pleural effusions. 3. Right greater than left bibasilar consolidation may represent atelectasis versus pneumonia. ACT 112: Negative or not required by law. The above report was generated using voice recognition software. It may contain grammatical, syntax or spelling errors. Electronically signed by: Campos Perdomo M.D. 11/21/2022 7:19 AM Discharge Plan Visit Data Chief Complaint: Shortness of Breath/Dyspnea Stated Complaint: shortness of breath ED Provider: Tania Harman Discharge Problem: Acute respiratory failure with hypoxia, Atrial fibrillation, CKD (chronic kidney disease), Pulmonary edema Patient Disposition: Admitted As Inpatient Discharge Instructions Interventions: ED Discharge Assessment Last Done: 11/21/22 08:52
--- NOTE | 2022-11-21 07:20 | XRay Report ---
XR chest 1V portable HISTORY: 72 years-old Male sob acute shortness of breath COMPARISON: 10/26/2022 TECHNIQUE: AP view of the chest FINDINGS: Cardiac silhouette is enlarged. Right IJ dual-lumen hemodialysis catheter distal tip is noted within the expected location of the inferior SVC. No postprocedural pneumothorax identified. Pulmonary vascu lar congestion with interstitial coarsening. Right greater than left bibasilar consolidation with pro bable small pleural effusions. Degenerative changes of the shoulders and spine. IMPRESSION: 1. Right IJ dual-lumen hemodialysis catheter in place. No pneumothorax. 2. Cardiomegaly with pulmonary edema and small pleural effusions. 3. Right greater than left bibasilar consolidation may represent atelectasis versus pneumonia. ACT 112: Negative or not required by law. The above report was generated using voice recognition software. It may contain grammatical, syntax o r spelling errors. Electronically signed by: Campos Perdomo M.D. 11/21/2022 7:19 AM
--- NOTE | 2022-11-21 08:46 | Nephrology Consultation ---
Date of Consultation November 21, 2022 Assessment & Plan (1) ESRD (end stage renal disease): Maintained on HD TTS at [facility] under the care of Dr. Kong. Rx 3.5 hours on 180 optiflux using TDC with Qb 400 and Qd 800. EDW 66.5 kg. Emergent HD coordinated this AM for hyperkalemia and volume overload. Orders ent ered into the EHR and reviewed with RN. Patient was seen and evaluated during treatment. Tolerated 2.5+ hour treatment for net UF 1 L. Treatment stopped due to persistent intradialytic hypotension. Adequate clearance. Renal diet will be maintained. I/O's to be documented in addition to daily morning weight. Repeat metabolic profile ordered for tomorrow AM. Patient will be evaluated tomorrow morning for potential additional HD. (2) Diabetic nephropathy associated with type 2 diabetes mellitus: Progressed to ESRD starting HD last month. TDC used for treatment. Remains non-oliguric. Diuretics will be continued to encourage urine output. (3) Cardiomyopathy, ischemic: Cardiology consultation obtained. Known underlying severe multivessel disease. Revascularization to be scheduled. Presented with acute decompensated CHF. (4) Acute respiratory failure with hypoxia: Volume overload at presentation. Concerning onset of symptoms. Remains on rotary adjuster. (5) Hyperkalemia: Clearance with HD provided. Diuretics to encourage urine output. Low potassium diet. History of Present Illness Reason for Consultation: ESRD on HD - Respiratory distress Requesting Physician: Magaly Duke Attending Physician: Magaly Duke History of Present Illness Mr. Jeramie Joseph is a 72 year-old male with a significant history of coronary artery disease, ischemic cardiomyopathy, and ESRD. He was recently admitted to [facility] from October 23- with NSTEMI, COPD exacerbation, and acute on chronic renal failure requiring initiation of dialysis. Hospitalization also notable for new onset atrial fibrillation. Jeramie has been maintained on hemodialysis via a R IJ TDC on a TTS schedule at [facility] under the care of Dr. Kong. He completed his last dialysis treatment on 11/18 without complications. Jeramie has been tolerating dialysis well. Rx: TTS x 3.5 hrs on a 180 optiflux at Qb 400 and Qd 800, 3 K bath. First outpatient HD treatment was 10/31. Cardiac catheterization revealed severe multivessel CAD and referral to [facility] for CT surgery evaluation was recommended. ESRD has been attributed to DKD. 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 Jeramie presented to the ER at [facility] with acute respiratory distress. He was placed on BIPAP in the ER. Dyspnea woke him from sleep. Jeramie continues to make urine. Furosemide was given and I was contacted by Dr. Duke to assist in coordinating urgent HD. Jeramie was seen and evaluated in the ER prior to dialysis. I also saw and evaluated the patient during his dialysis treatment. Allergies Allergy/AdvReac Type Severity Reaction Status Date / Time No Known Drug Allergies Allergy Verified 11/20/22 14:07 Home Medications Medication Instructions Recorded Confirmed Type atorvastatin 80 mg tablet 80 mg PO HS #90 tabs 09/16/21 11/21/22 Rx nitroglycerin 0.4 mg sublingual 0.4 mg sublingual UD PRN Angina 12/27/21 0 11/21/22 Rx tablet #30 tabs carvedilol 12.5 mg tablet 12.5 mg PO BID #180 tabs 05/24/22 11/21/22 Rx insulin degludec 100 unit/mL (3 See Rx Instructions .Route 08/22/22 11/21/22 Rx mL) subcutaneous pen (Tresiba .COMPLEX #15 mL FlexTouch U-100 insulin) FreeStyle Lite Strips (blood sugar #200 ea 08/28/22 11/20/22 Rx diagnostic) aspirin 81 mg chewable tablet 81 mg PO DAILY #30 tabs 10/27/22 11/21/22 Rx apixaban 2.5 mg tablet (Eliquis) 2.5 mg PO Q12H #180 tabs 11/01/22 11/21/22 Rx amlodipine 5 mg PO DAILY 11/21/22 11/21/22 History isosorbide mononitrate 30 mg PO DAILY 11/21/22 11/21/22 History lisinopril 2.5 mg tablet 2.5 mg PO BID 11/21/22 11/21/22 History Patient History Medical History (Updated 11/21/22 @ 16:23 by Raghu Carlisle DO) Anemia Asthma d/t asbestos--inhaler prn Atrial fibrillation takes aspirin daily--follows with Dr. Galindo Carpal tunnel syndrome, bilateral Cholelithiasis Coronary artery disease Diabetes mellitus with insulin therapy Diabetes mellitus, type 2 Diabetic nephropathy associated with type 2 diabetes mellitus Dyslipidemia History of diabetic retinopathy Hyperkalemia Hyperlipidemia Hypertension Hypertension Myocardial Infarction 2015 Pancreatitis Paroxysmal atrial fibrillation T2DM (type 2 diabetes mellitus) Surgical History History of cardiac cath 2015x2 @ [facility] in [place], [place]--4 stents placed History of colonoscopy History of endoscopic sinus surgery History of left inguinal hernia repair History of surgery (10/26/22) Removal Right Internal Jugular Catheter, Replacement Right internal Jugular Dialysis Catheter(Right) - Kirby Armenta DO History of tooth extraction Hx of vasectomy Family History Father Myocardial infarction Cardiac disorder Hypertension Brother Cardiac disorder Hypertension Other No family history of adverse response to anesthesia Social History Smoking Status: Never smoker Second Hand Exposure: No; Do You Dip or Chew Tobacco: No; Hx Alcohol Use: No Hx Substance Use: No Preferred Language: [place] Communication Ability: Effective Visual Impairment: Limited Hearing Ability: Normal Tanker Driver Required: No Beliefs That Will Affect Care: None marital status: Current Living Situation: Other Current Living Situation Comment: 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 with 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 current occupational status: employed 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 [employer] Feels Safe at Home: Yes Childhood Exposure to Second-Hand Smoke: Yes caffeine: Yes Dental Care, Regularly: No Physical Activity Frequency: Daily Seatbelt Use: always Sunscreen Use: Yes Assistive Devices: Glasses Review of Systems Review of Systems: All systems reviewed & are unremarkable except as noted in HPI & below Cardiovascular: + dyspnea, + dyspnea at rest and + orthopnea; no palpitations Physical Exam Constitutional: well developed and + thin; no acute distress Eyes: + anicteric sclerae; no corneal abnormality ENMT: NRB mask with BIPAP Neck: normal visual inspection and trachea midline RIJ TDC Respiratory: normal respiratory effort Auscultation: + wheezes Cardiovascular: Rate/Rhythm: + tachycardic Heart Sounds: normal S1 and normal S2 Extremities: + pedal edema Musculoskeletal: Extremities: no cyanosis and no clubbing Skin: normal turgor; no lesions Neurologic: Motor/Sensory: no tremor and no asterixis Psychiatric: Orientation: alert and oriented x 3 Results & Data Vital Signs (Past 12 Hours) Vital Signs Temp Pulse Pulse Resp BP BP Pulse Ox 11/21/22 07:35 89 20 147/97 H 99 11/21/22 06:45 97 H 24 100 11/21/22 06:30 100 H 23 162/108 H 100 11/21/22 06:15 97 H 18 100 11/21/22 06:00 107 H 34 H 164/121 H 97 11/21/22 05:45 101 H 26 H 100 11/21/22 05:49 101 H 11/21/22 05:44 101 H 36 H 153/104 H 100 11/21/22 05:42 106 H 25 H 94 11/21/22 05:42 91 11/21/22 05:32 11/21/22 05:32 35 C L 99 H 32 H 153/104 H 99 O2 Del Method O2 Flow Rate FiO2 11/21/22 07:35 BiPAP 11/21/22 06:45 11/21/22 06:30 11/21/22 06:15 11/21/22 06:00 11/21/22 05:45 BiPAP 100 11/21/22 05:49 11/21/22 05:44 BiPAP 100 11/21/22 05:42 100 11/21/22 05:42 Non-rebreather 10 11/21/22 05:32 BiPAP 11/21/22 05:32 BiPAP Laboratory Results Laboratory Results - last 24 hr 11/21/22 11/21/22 11/21/22 05:31 05:31 05:31 WBC 16.43 H RBC 4.76 Hgb 13.9 L Hct 43.2 MCV 90.8 MCH 29.2 MCHC 32.2 RDW Std Deviation 52.8 H RDW Coeff of Jocelyn 15.9 H Plt Count 206 MPV 10.9 Immature Gran % (Auto) 0.5 Neut % (Auto) 75.8 Lymph % (Auto) 14.3 Stafford % (Auto) 7.2 Eos % (Auto) 1.5 Baso % (Auto) 0.7 Neut # (Auto) 12.47 H Lymph # (Auto) 2.35 Stafford # (Auto) 1.18 H Eos # (Auto) 0.24 Baso # (Auto) 0.11 Immature Gran # (Auto) 0.08 PT 11.9 INR 1.1 Sodium 134 L Potassium 5.5 H Chloride 99 Carbon Dioxide 23 Anion Gap 12 H BUN 92 H Creatinine 5.47 H* Est Cr Clr Drug Dosing 12.0 Est GFR ( Amer) 11.2 Est GFR (Non-Af Amer) 9.7 BUN/Creatinine Ratio 16.8 Glucose 364 H* Calcium 8.6 Phosphorus 8.2 H Magnesium 2.6 H Total Bilirubin 0.4 AST 76 H ALT 25 Alkaline Phosphatase 63 Troponin I High Sens 3996.2 H* Total Protein 7.2 Albumin 4.1 Globulin 3.1 Albumin/Globulin Ratio 1.3 Procalcitonin SARS-CoV-2, RNA, NAAT 11/21/22 11/21/22 05:31 05:57 WBC RBC Hgb Hct MCV MCH MCHC RDW Std Deviation RDW Coeff of Jocelyn Plt Count MPV Immature Gran % (Auto) Neut % (Auto) Lymph % (Auto) Stafford % (Auto) Eos % (Auto) Baso % (Auto) Neut # (Auto) Lymph # (Auto) Stafford # (Auto) Eos # (Auto) Baso # (Auto) Immature Gran # (Auto) PT INR Sodium Potassium Chloride Carbon Dioxide Anion Gap BUN Creatinine Est Cr Clr Drug Dosing Est GFR ( Amer) Est GFR (Non-Af Amer) BUN/Creatinine Ratio Glucose Calcium Phosphorus Magnesium Total Bilirubin AST ALT Alkaline Phosphatase Troponin I High Sens Total Protein Albumin Globulin Albumin/Globulin Ratio Procalcitonin Pending SARS-CoV-2, RNA, NAAT NEGATIVE Diagnostic Findings XR chest 1V portable FINDINGS: Cardiac silhouette is enlarged. Right IJ dual-lumen hemodialysis catheter distal tip is noted within the expected location of the inferior SVC. No postprocedural pneumothorax identified. Pulmonary vascular congestion with interstitial coarsening. Right greater than left bibasilar consolidation with probable small pleural effusions. Degenerative changes of the shoulders and spine. IMPRESSION: 1. Right IJ dual-lumen hemodialysis catheter in place. No pneumothorax. 2. Cardiomegaly with pulmonary edema and small pleural effusions. 3. Right greater than left bibasilar consolidation may represent atelectasis versus pneumonia. ECG Additional Comments: Sinus tachycardia Possible Left atrial enlargement Left bundle branch block Abnormal ECG When compared with ECG of 24-OCT-2022 15:54, T wave inversion more evident in Lateral leads PG Care Time/CCT Total # of Minutes Spent Total Time Spent with Patient: Total time spent is greater than 50% in coordination of care (as documented) at patient's floor/unit and/or counseling patient: Coding Level of Care Code 27130 IN/OBS CONSULT LVL 5,80M Diagnoses ESRD (end stage renal disease) N18.6 Diabetic nephropathy associated with type 2 diabetes mellitus E11.21 Cardiomyopathy, ischemic I25.5 Acute respiratory failure with hypoxia J96.01 Hyperkalemia E87.5
[2022-11-21] MEDS ORDERED: hydrALAZINE HCL 20 MG/ML VIAL IV PRN (08:51)
[2022-11-21] MEDS ORDERED: GLUCOSE 10 TAB/TUBE PO PRN (08:51)
[2022-11-21] MEDS ORDERED: ACETAMINOPHEN 325 MG TAB PO PRN (08:51)
[2022-11-21] MEDS ORDERED: ONDANSETRON INJ 2 MG/ML 2 ML VIAL IV PRN (08:51)
[2022-11-21] MEDS ORDERED: ALBUTEROL 0.5% NEB SOLN 2.5 MG/0.5 ML VIAL NEB PRN (08:51)
[2022-11-21] MEDS ORDERED: GLUCAGON FOR INJ 1 MG VIAL SQ PRN (08:51)
[2022-11-21] MEDS ORDERED: GLUCOSE 40% GEL 15 GM TUBE PO PRN (08:51)
[2022-11-21] MEDS ORDERED: PHARMACY GLYCEMIC MGMT CONSULT PRN (08:51)
[2022-11-21] MEDS ORDERED: CARBOHYDRATES FOR HYPOGLYCEMIA PO PRN (08:51)
[2022-11-21] MEDS ORDERED: DEXTROSE 50% 50 ML SYRINGE IV PRN (08:51)
[2022-11-21] MEDS ORDERED: CALCITRIOL 0.25 MCG CAPSULE PO SCH (09:00)
[2022-11-21] MEDS ORDERED: CEFEPIME 2,000 MG in SYRINGE 0 ML IV SCH (09:00)
[2022-11-21] MEDS ORDERED: LANTUS PER UNIT CHARGE SQ SCH (09:00)
[2022-11-21] MEDS ORDERED: ISOSORBIDE MONO EXTENDED REL 30 MG TABCR PO SCH (09:00)
[2022-11-21] MEDS ORDERED: lisinopril 5 MG TAB PO SCH (09:00)
[2022-11-21] MEDS ORDERED: carvediloL 12.5 MG TAB PO SCH (09:00)
[2022-11-21] MEDS ORDERED: ASPIRIN 81 MG CHEW PO SCH (09:00)
[2022-11-21] MEDS ORDERED: APIXABAN 2.5 MG TAB PO SCH (09:00)
--- NOTE | 2022-11-21 10:37 | Electrocardiogram Report ---
Test Reason : Blood Pressure : / mmHG Vent. Rate : 101 BPM Atrial Rate : 101 BPM P-R Int : 176 ms QRS Dur : 158 ms QT Int : 392 ms P-R-T Axes : 069 -14 129 degrees QTc Int : 508 ms Sinus tachycardia Possible Left atrial enlargement Left bundle branch block Abnormal ECG When compared with ECG of 24-OCT-2022 15:54, T wave inversion more evident in Lateral leads Confirmed by Kedar Henley ([id number]) on 11/21/2022 10:37:36 AM Referred By: REFERRED SELF Confirmed By:Faizan Henley
--- NOTE | 2022-11-21 12:56 | Pharmacy Report ---
Pharmacy Glycemic Short Note 2 - Date of Service November 21, 2022 - Glycemic Short BSG Results (Last 24 hours): 11/21/22 05:31 Glucose 364 H* OUTPATIENT ANTIDIABETIC REGIMEN: * Tresiba 10-14 units SC HS * Novolog SSI (reportedly has not been taking recently) Patient's A1c = 8.1% today. * However, this result is likely somewhat unreliable in ESRD patients d/t interactions between the A1c analyzing technique and high levels of urea in ESRD, reduced RBC life span, iron deficiency anemia, and EPO administration. HbA1c > 7.5% in ESRD patient may overestimate the extent of hyperglycemia in ESRD patients. ASSESSMENT: * MARIAELENA is a 72 year old male presenting with acute respiratory failure * Pertinent PMH includes ESRD (new to HD on Sunday, , and Sunday), afib, CAD * Presenting BSG of 364 mg/dL, pharmacy consulted for glycemic management, unfortunately no insulin administered prior to patient going to HD * BSG post-dialysis of 160 mg/dL w/ no insulin PLAN FOR INPATIENT GLYCEMIC CONTROL: * Basal insulin * Lantus 10 units SQ daily * Bolus insulin * NovoLog per scale ACHS or Q6hrs while NPO * Goal Range: Low 120 mg/dL - High 150 mg/dL * Correction Factor: 30 mg/dL/unit * Nutritional / Prandial insulin per carb ratio of 1 unit per 10 grams CHO consumed
[2022-11-21] MEDS: INSULIN ASPART PER UNIT CHARGE SC SCH ×2 (13:05→13:06)
--- NOTE | 2022-11-21 15:29 | Cardiology Consultation ---
Date of Consultation November 21, 2022 Assessment & Plan (1) Acute respiratory failure with hypoxia: (2) Cardiomyopathy, ischemic: (3) CAD, multiple vessel: (4) Atrial fibrillation: (5) ESRD (end stage renal disease): (6) T2DM (type 2 diabetes mellitus): Plan 1. Acute decompensated systolic heart failure: He had acute pulmonary edema undoubtedly related to his severe coronary disease and associated ischemic cardiomyopathy. Possibly a transient ischemic event versus acute hypertension or an element of volume overload as he was dialyzed 2 days prior. He did undergo urgent dialysis with improvement in his symptoms. 2. NSTEMI: He certainly had ischemia related to this event. Whether was the precipitant or simply a result is unclear. However, he does require revascularization. He presented with an NSTEMI 1 month ago and will continue to have additionally events until he receives some intervention in this regard. Will continue his carvedilol, isosorbide, aspirin and atorvastatin. We will transition him from apixaban to heparin. 3. Coronary artery disease: He underwent percutaneous intervention to the LAD, RCA and circumflex in 2014. He is known to have had progression and will require an evaluation for more complex PCI versus surgical revascularization. Continue his aspirin and high-dose atorvastatin. Will transition apixaban to heparin in anticipation of some intervention. 4. Ischemic cardiomyopathy: He presented with decompensated heart failure. Multifactorial but undoubtedly related to his ischemic heart disease and associated reduced LV function. On dialysis and generally doing well with respect to volume control. Started on lisinopril at a low dose recently. Continued on carvedilol. Hopefully will improve with revascularization. Not quite severe enough for prophylactic ICD. 5. Atrial fibrillation: Did undergo cardioversion once remotely. Currently has sinus rhythm with PACs. Generally on systemic anticoagulation which will be held in anticipation of an intervention. 6. Mitral regurgitation: Moderate on his echocardiogram 1 month ago. 7. Left bundle branch block: Depending on his progression and symptoms he may be a candidate for resynchronization in the future. 8. Chronic renal failure: Reportedly doing well during dialysis. Pt status is generally been well controlled. Currently using a temporary dialysis catheter as no fistula has been created. Not a good candidate for additional surgeries until his cardiac condition has stabilized. 9. Hyperlipidemia: Continue high-dose atorvastatin. LDL at goal in August of 2022. Result was 53. Triglycerides 119 at that time. Not a candidate for Vascepa 10. Hypertension: Mildly hypertensive at the time of presentation. However, this was in the setting of an acute decompensation. Unclear if this was a precipitant or simply result. Generally speaking blood pressures been lower. He may benefit from more aggressive titration of his medications such as carvedilol in a change of lisinopril to Entresto. History of Present Illness Reason for Consultation: Acute dyspnea, NSTEMI Requesting Physician: Pj Attending Physician: Magaly Duke DO History of Present Illness The patient is a 72-year-old gentleman who has extensive history of cardiac disease to include coronary artery disease status post multivessel PCI, and ischemic cardiomyopathy, paroxysmal atrial fibrillation status post cardioversion, left bundle branch block, mitral regurgitation, possible prior CVA without residual defect, poorly controlled diabetes and recent renal failure on renal replacement therapy. He was last admitted to our institution in October for symptoms of worsening chest discomfort and dyspnea. He was noted to have an NSTEMI at that time. Based on the unstable nature of his symptoms he did undergo coronary angiography. Subseq uently he required a transition to dialysis as result of baseline renal insufficiency. He was not felt to have had an acute coronary syndrome but was discovered to have progression of multivessel coronary disease and mildly worsening LV systolic function. His medical regimen was intensified and he was advised to explore options for revascularization to include advanced percutaneous revascularization versus bypass grafting. The patient is in the process of moving back to [facility]. He was hoping to defer any additional interventions until he had moved, but at 2:00 a.m. this morning he woke suddenly with severe dyspnea. There was some associated chest pressure. He was able to sit up in a chair for brief period of time but his breathing worsened to the point where he asked his to call 911. He was brought to the emergency room in acute respiratory distress and evident acute heart failure. He underwent emergent dialysis with improvement in his symptoms. He has had fairly frequent episodes of chest discomfort. These characteristically occur after eating a large meal around dinner time. He will generally take an extra dose of his extended-release nitroglycerin with some improvement in symptoms. He has been limiting his activity recently. He can do some light activity without angina. At the time of my interview the patient was resting comfortably. He denies significant breathing trouble. No current chest pain. No sense of palpitation. No dizziness or lightheadedness. He has not been experiencing lower extremity edema. He has been participating in regular dialysis without notable complication. Last dialyzed on Sunday Allergies Allergy/AdvReac Type Severity Reaction Status Date / Time No Known Drug Allergies Allergy Verified 11/20/22 14:07 Home Medications Medication Instructions Recorded Confirmed Type atorvastatin 80 mg tablet 80 mg PO HS #90 tabs 09/16/21 11/21/22 Rx nitroglycerin 0.4 mg sublingual 0.4 mg sublingual UD PRN Angina 12/27/21 11/21/22 Rx tablet #30 tabs carvedilol 12.5 mg tablet 12.5 mg PO BID #180 tabs 05/24/22 11/21/22 Rx insulin degludec 100 unit/mL (3 See Rx Instructions .Route 08/22/22 11/21/22 Rx mL) subcutaneous pen (Tresiba .COMPLEX #15 mL FlexTouch U-100 insulin) FreeStyle Lite Strips (blood sugar #200 ea 08/28/22 11/20/22 Rx diagnostic) aspirin 81 mg chewable tablet 81 mg PO DAILY #30 tabs 10/27/22 11/21/22 Rx apixaban 2.5 mg tablet (Eliquis) 2.5 mg PO Q12H #180 tabs 11/01/22 11/21/22 Rx amlodipine 5 mg PO DAILY 11/21/22 11/21/22 History isosorbide mononitrate 30 mg PO DAILY 11/21/22 11/21/22 History lisinopril 2.5 mg tablet 2.5 mg PO BID 11/21/22 11/21/22 History Patient History Medical History Anemia Asthma d/t asbestos--inhaler prn Atrial fibrillation takes aspirin daily--follows with Dr. Galindo Carpal tunnel syndrome, bilateral Cholelithiasis Chronic kidney disease, stage 2 (mild) Chronic kidney disease, stage 3 Coronary artery disease Diabetes mellitus with insulin therapy Diabetes mellitus, type 2 Diabetic nephropathy associated with type 2 diabetes mellitus Dyslipidemia History of diabetic retinopathy Hyperkalemia Hyperlipidemia Hypertension Hypertension Myocardial Infarction 2015 Pancreatitis Paroxysmal atrial fibrillation T2DM (type 2 diabetes mellitus) Vitamin D deficiency Surgical History History of cardiac cath 2015x2 @ [facility] in [place], [place]--4 stents placed History of colonoscopy History of endoscopic sinus surgery History of left inguinal hernia repair History of surgery (10/26/22) Removal Right Internal Jugular Catheter, Replacement Right internal Jugular Dialysis Catheter(Right) - Kirby Armenta DO History of tooth extraction Hx of vasectomy Family History Father Myocardial infarction Cardiac disorder Hypertension Brother Cardiac disorder Hypertension Other No family history of adverse response to anesthesia Social History Smoking Status: Never smoker Second Hand Exposure: No; Do You Dip or Chew Tobacco: No; Hx Alcohol Use: No Hx Substance Use: No Preferred Language: Estonian Communication Ability: Effective Visual Impairment: Limited Hearing Ability: Normal Heel Seat Fitter Machine Required: No Beliefs That Will Affect Care: None marital status: Current Living Situation: Other Current Living Situation Comment: lives with bond clerk current occupational status: employed 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 His states that generally after his last dialysis of the week he will wake up the following morning with significant left-sided neck discomfort. Physical Exam Physical Exam: The patient is alert and oriented. Mood and affect appeared normal. He answered all questions appropriately. HEENT: Pupils are equal and reactive to light and accommodation. Extraocular movements are intact. The sclerae are anicteric. Neuro: Cranial nerves intact Chest: Right IJ tunneled dialysis catheter. Lungs: Normal respiratory effort. Crackles in the bases bilaterally. No expiratory wheezing. Cardiac: Heart demonstrates a regular rhythm with occasional ectopy. Normal rate. Soft holosystolic murmur. Pulses: The patient has palpable radial pulses bilaterally that are equal in intensity Extremities: There was no evidence of hypoperfusion. There is no cyanosis or clubbing. There is no edema. Skin: I did not appreciate any rashes on examination today. Results & Data Vital Signs (Past 12 Hours) Vital Signs Temp Pulse Pulse Pulse Resp BP BP 11/21/22 13:41 105 H 11/21/22 13:05 36.8 C 99 H 20 124/81 11/21/22 13:12 11/21/22 13:12 11/21/22 12:58 11/21/22 12:12 36.6 C 93 H 103/65 11/21/22 12:00 59 L 79/39 L 11/21/22 11:30 54 L 85/55 L 11/21/22 11:00 55 L 84/48 L 11/21/22 10:30 54 L 92/51 L 11/21/22 10:00 52 L 98/75 L 11/21/22 09:30 78 120/82 11/21/22 09:22 36.7 C 79 11/21/22 09:10 81 26 H 11/21/22 08:50 83 18 145/89 H 11/21/22 07:35 89 20 147/97 H 11/21/22 06:45 97 H 24 11/21/22 06:30 100 H 23 162/108 H 11/21/22 06:15 97 H 18 11/21/22 06:00 107 H 34 H 164/121 H 11/21/22 05:45 101 H 26 H 11/21/22 05:49 101 H 11/21/22 05:44 101 H 36 H 153/104 H 11/21/22 05:42 106 H 25 H 11/21/22 05:42 11/21/22 05:32 11/21/22 05:32 35 C L 99 H 32 H 153/104 H Pulse Ox Pulse Ox O2 Del Method O2 Del Method O2 Flow Rate O2 Flow Rate FiO2 11/21/22 13:41 11/21/22 13:05 Oxymask 9 11/21/22 13:12 Oxymask 9 11/21/22 13:12 97 Oxymask 9 11/21/22 12:58 97 Oxymask 9 11/21/22 12:12 11/21/22 12:00 11/21/22 11:30 11/21/22 11:00 11/21/22 10:30 11/21/22 10:00 11/21/22 09:30 11/21/22 09:22 11/21/22 09:10 100 80 11/21/22 08:50 100 BiPAP 11/21/22 07:35 99 BiPAP 11/21/22 06:45 100 11/21/22 06:30 100 11/21/22 06:15 100 11/21/22 06:00 97 11/21/22 05:45 100 BiPAP 100 11/21/22 05:49 11/21/22 05:44 100 BiPAP 100 11/21/22 05:42 94 100 11/21/22 05:42 91 Non-rebreather 10 11/21/22 05:32 BiPAP 11/21/22 05:32 99 BiPAP Laboratory Results Abnormal Lab Results 11/21/22 11/21/22 11/21/22 05:31 05:31 05:31 WBC 16.43 H RBC 4.76 Hgb 13.9 L Hct 43.2 MCV 90.8 MCH 29.2 MCHC 32.2 RDW Std Deviation 52.8 H RDW Coeff of Jocelyn 15.9 H Plt Count 206 MPV 10.9 Immature Gran % (Auto) 0.5 Neut % (Auto) 75.8 Lymph % (Auto) 14.3 [place] % (Auto) 7.2 Eos % (Auto) 1.5 Baso % (Auto) 0.7 Neut # (Auto) 12.47 H Lymph # (Auto) 2.35 [place] # (Auto) 1.18 H Eos # (Auto) 0.24 Baso # (Auto) 0.11 Immature Gran # (Auto) 0.08 PT 11.9 INR 1.1 Sodium 134 L Potassium 5.5 H Chloride 99 Carbon Dioxide 23 Anion Gap 12 H BUN 92 H Creatinine 5.47 H* Est Cr Clr Drug Dosing 12.0 Est GFR ( Amer) 11.2 Est GFR (Non-Af Amer) 9.7 BUN/Creatinine Ratio 16.8 Glucose 364 H* POC Glucose Calcium 8.6 Phosphorus 8.2 H Magnesium 2.6 H Total Bilirubin 0.4 AST 76 H ALT 25 Alkaline Phosphatase 63 Troponin I High Sens 3996.2 H* B-Natriuretic Peptide Total Protein 7.2 Albumin 4.1 Globulin 3.1 Albumin/Globulin Ratio 1.3 Procalcitonin SARS-CoV-2, RNA, NAAT 11/21/22 11/21/22 11/21/22 05:31 05:31 05:57 WBC RBC Hgb Hct MCV MCH MCHC RDW Std Deviation RDW Coeff of Jocelyn Plt Count MPV Immature Gran % (Auto) Neut % (Auto) Lymph % (Auto) [place] % (Auto) Eos % (Auto) Baso % (Auto) Neut # (Auto) Lymph # (Auto) [place] # (Auto) Eos # (Auto) Baso # (Auto) Immature Gran # (Auto) PT INR Sodium Potassium Chloride Carbon Dioxide Anion Gap BUN Creatinine Est Cr Clr Drug Dosing Est GFR ( Amer) Est GFR (Non-Af Amer) BUN/Creatinine Ratio Glucose POC Glucose Calcium Phosphorus Magnesium Total Bilirubin AST ALT Alkaline Phosphatase Troponin I High Sens B-Natriuretic Peptide 1514 H Total Protein Albumin Globulin Albumin/Globulin Ratio Procalcitonin 0.14 SARS-CoV-2, RNA, NAAT NEGATIVE 11/21/22 13:27 WBC RBC Hgb Hct MCV MCH MCHC RDW Std Deviation RDW Coeff of Jocelyn Plt Count MPV Immature Gran % (Auto) Neut % (Auto) Lymph % (Auto) [place] % (Auto) Eos % (Auto) Baso % (Auto) Neut # (Auto) Lymph # (Auto) [place] # (Auto) Eos # (Auto) Baso # (Auto) Immature Gran # (Auto) PT INR Sodium Potassium Chloride Carbon Dioxide Anion Gap BUN Creatinine Est Cr Clr Drug Dosing Est GFR ( Amer) Est GFR (Non-Af Amer) BUN/Creatinine Ratio Glucose POC Glucose 160 H Calcium Phosphorus Magnesium Total Bilirubin AST ALT Alkaline Phosphatase Troponin I High Sens B-Natriuretic Peptide Total Protein Albumin Globulin Albumin/Globulin Ratio Procalcitonin SARS-CoV-2, RNA, NAAT Diagnostic Findings Chest x-ray obtained the time admission revealed cardiomegaly with pulmonary edema and small bilateral pleural effusions. Bibasilar consolidation atelectasis versus pneumonia. Echocardiogram dated 10/24/2022: Ejection fraction 35-40%. Moderate mitral regurgitation. Wall motion abnormalities in the RCA and left circumflex territories. Distal LAD wall motion abnormality Cardiac catheterization dated 10/24/2022: [id number] vessel which trifurcates into LAD, circumflex, and ramus. There is ostial to proximal 50 to 60% stenosis with mild pressure dampening on engagement. There is mild to moderate calcification throughout the left main and distally it appears to narrow with disease involving the ostia of the 3 major branch vessels. This likely represents a 40% narrowing. LAD: Medium to large in caliber, long and transapical. Ostial stenosis as an extension of the distal left main disease. Proximal segment is diffusely calcified disease with up to 90% stenosis just prior to a previously placed stent. The stent itself is widely patent. After the stent the mid segment has mild disease and there is a small caliber second diagonal which appears severely and diffusely diseased. Distal LAD has diffuse mild disease with a focal 70% stenosis as the vessel approaches the apex. The apical portion as it wraps the apex is severely and diffusely diseased. LCx: Ostial disease appears in some views to be 30 to 40% narrowed. Proximal vessel runs in the AV groove where it gives an atrial branch. There is a high arising large caliber and long OM1 which branches distally. This vessel has proximal 95 to 99% focal stenosis and mild luminal irregularities throughout. After the atrial branch the AV groove circumflex has extensive stenting which is 100% chronically occluded. The most distal circumflex fills via right to left collateralization demonstrating small caliber posterolateral branch and distal AV groove vessel. Ramus: There is a long vessel of relatively small caliber which represents either the ramus or a high arising first diagonal. This vessel is 100% occluded at the ostium and is seen to fill late via left to left collateralization. RCA: Medium to large caliber and dominant vessel. Proximally there is diffuse mild disease of up to 30 to 40% narrowing. The mid RCA has a previously placed stent which is widely patent. The distal vessel has mild disease and then at the bifurcation into the PDA and posterolateral branch is a focal 70% stenosis. The PDA is relatively large and the posterolateral branch is medium in size. These vessels have mild scattered disease. They provide right to left collateralization to the distal circumflex distribution. Lexiscan perfusion study performed 02/10/2022: Inferior and inferior lateral in farct from base to mid ventricle. Ischemia involving the apex, inferior, inferior lateral and anterolateral martinez. Gated ejection fraction 16% Carotid duplex evaluation dated 02/10/2022: Less than 50% stenosis in both internal carotid arteries. Antegrade flow in the bilateral vertebral arteries. PG Care Time/CCT Total # of Minutes Spent Total Time Spent with Patient: Total time spent is greater than 50% in coordination of care (as documented) at patient's floor/unit and/or counseling patient: Coding Level of Care Code 97525 INT INP/OBS CARE MIN Diagnoses Acute respiratory failure with hypoxia J96.01 Cardiomyopathy, ischemic I25.5 CAD, multiple vessel I25.10 Atrial fibrillation I48.91 ESRD (end stage renal disease) N18.6 T2DM (type 2 diabetes mellitus) E11.9
[2022-11-21] MEDS ORDERED: INSULIN ASPART PER UNIT CHARGE SC SCH (16:00)
[2022-11-21 16:10] LABS: HCO3 ABG 22 mmol/L (19-24); Oxygen Saturation ABG 99.7 % (90-95); PCO2 ABG 36 mmHg (35-46); PO2 ABG 119 mmHg (80-95)
[2022-11-21 16:12] LABS: Allen Test Pos (Pos)
--- NOTE | 2022-11-21 16:30 | Discharge Summary ---
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 History is limited as patient is presently with BiPAP in place, speaking in short sentences. He reports acute onset SOB this AM at 02:00 which woke him from sleep. SOB has progressively worsened. He denies chest pain, palpitations, dizziness, syncope. Denies abdominal pain, nausea, vomiting, diarrhea. Denies fever, chills, cough, sweats. Patient reports compliance with his HD sessions T/R/S and has not missed any treatments. Reports he is compliant with his medications as well. Per EMS patient hypoxic on room air to 82-86% with diffuse crackles. He was administered Nitro spray and a DuoNeb en route. Upon arrival to the ER he was with elevated HR=99, BP 153/104, RR=32 with labored respirations. He was initially placed on 10L NRB then transitioned to BiPAP. Patient is awake and alert. Answering questions. Speaking in 1-2 word sentences. BiPAP presently 16/8, 40% FiO2 Prior hospitalization 10/23/22 - 10/27/22 with acute NSTEMI - troponin peaked at 18,694.8 on 10/25/22. Patient had a cardiac catheterization performed on 10/24/22 which revealed severe multivessel CAD with progression from prior catheterization. No acute thrombotic lesion/culprit for ACS. He is to be referred to a tertiary care center with CT Surgery capability to discuss his complex revascularization needs. Patient had a right IJ temporary HD catheter placed. Tunneled IJ catheter placed 10/26/22 by General Surgery. ER Course: Cefepime 2gm Lasix 40mg IV + 40mg IV Zofran 4mg IV Nitro 1 inch Patient's home Lisinopril 5mg and Isosorbide ER 30mg ordered to assist with BP management - not yet administered Principal Diagnosis Severe CAD, Acute on chronic HFrEF Discharge Exam Constitutional WD/WN, vitals as above Respiratory normal respiratory effort; no cough and not tachypneic Auscultation: + crackles (bibasilar); no rhonchi and no wheezes Cardiovascular Rate/Rhythm: regular rate and + irregularly irregular Heart Sounds: no murmur Extremities: no edema Chest (Breasts) Chest: + vascular access device or port (tunneled IJ dialysis catheter right anterior chest) Psychiatric A+Ox3, euthymic affect Discharge Data Allergies Allergy/AdvReac Type Severity Reaction Status Date / Time No Known Drug Allergies Allergy Verified 11/20/22 14:07 Consultations 11/21/22 06:19 ED Decision to Admit Stat 11/21/22 08:51 Consult Nephrology Routine 11/21/22 10:58 Consult Cardiology Routine Hospital Course (1) Acute respiratory failure with hypoxia: 72yo male with history of multivessel CAD, ICM with EF of 35-40%, ESRD on HD presenting with acute onset SOB, acute hypoxic respiratory failure requiring rescue BiPAP. . Suspect pulmonary edema/volume overload, hypertension, and known severe CAD with ischemia contributing Patient given Lasix 80mg IV, Nitro paste. Managing with BiPAP for now--> weaned to 5LNC after had urgent HD session -BP control - Lisinopril and Isosorbide -Nephrology consulted - appreciate assistance -Empiric Cefepime 2gm IV daily given but not likely needed to be continued -transferring to [facility] [place] revascularization eval (2) Cardiomyopathy, ischemic: With acute on chronic HFrEF EF of 35-40%. Suspect pulmonary edema, need for HD, hypertension contributing to current respiratory distress. Lasix 40mg IV given - Devi in place with a small amount of clear yellow urine -Continue Lisinopril -Isosorbide -Continue Carvedilol -had urgent HD -needs revascularization eval at [place] [facility] consult (3) ESRD (end stage renal disease): Patient new to HD. Receives treatment T/R/S. Reports he still makes urine -Lasix given, monitor output -Nephrology consulted -Continue Calcitriol (4) CAD, multiple vessel: Elevated troponin here initially at 3996, repeat pending at time of transfer. Patient with recent NSTEMI with troponin peak of over 18,000. -Continue ASA, Atorvastatin, Carvedilol -Continue Isosorbide and Lisinopril -Trend troponin -Telemetry monitoring (5) Elevated troponin: Patient denies chest pain. Elevated troponin - as above, also with recent NSTEMI 1 month ago -Trend troponin -Telemetry monitoring -Continue cardiac medications (6) Atrial fibrillation: Mild tachycardia on arrival -Continue Carvedilol -will now hold Apixaban in prep for possible cardiac surgery -start heparin gtt 12 hours after last ELiquis dose which would be 0130 AM tomorrow (7) Hypertension: Blood pressure elevated in the ER, possibly contributing to patient's acute respiratory distress -Continue Lisinopril, Isosorbide -Hydralazine 5mg IV q 4 hours as needed for BP > 180/110 (8) T2DM (type 2 diabetes mellitus): Last HgbA1C on 09/05/22 = 8.1. With hyperglycemia currently, RMY=[id number] -Lantus 7u BID, ISS -Goal blood sugar 110 - 140 -Pharmacy glycemic management consultation (9) Dyslipidemia: Chronic. -Continue Atorvastatin F/E/N - [place]. Monitor electrolytes. Can eat now that off BiPAP Code - Full per discussion with patient Dispo -transfer to [place] Total Time Total Time Spent Total Time Spent (In Minutes): 45 min Discharge Plan Discharge Items Patient Disposition: Transfer Acute Care Hospital Reason For Visit: RESPIRATORY DISTRESS Discharge Diagnosis: Severe CAD, CHF Condition on Discharge: Serious Activity: As commented below Lifting: None Bathing: No limitations Exercise/Sports: Rest today Non-emergency contact: Primary Care Provider Call non-emergency contact if: you have any medication questions and your symptoms worsen Follow-up/Referrals: Petr Blake MD [Primary Care Provider] - Diet: Carb Consistent or DM2 and Low Sodium (2gm) Fluids: 1200ml (5 cups) Addtl Attending Provider Instructions: Transferred to [place] Pending Studies at Discharge: No Stand-Alone Forms: My [facility] [employer] Skilled Items Patient informed of condition?: Yes DNR: No Discharge Level of Care: Other Communicable Disease: No Discharge Prognosis: Stable Lines: Peripheral IV Urinary Catheter: Yes Medications and DC Order Prescriptions: New calcitriol 0.25 mcg Capsule 0.25 mcg PO DAILY Qty: 30 0RF isosorbide mononitrate 30 mg Tablet Extended Release 24 Hr 30 mg PO BID Qty: 60 0RF Continued atorvastatin 80 mg tablet 80 mg PO HS Qty: 90 3RF carvedilol 12.5 mg tablet 12.5 mg PO BID Qty: 180 3RF (DME) FreeStyle Lite Strips Strip See Rx Instructions .Route Qty: 200 0RF Rx Instructions: test 2 times daily Tresiba FlexTouch U-100 100 unit/mL (3 mL) insulin pen See Rx Instructions .ROUTE .COMPLEX Qty: 15 3RF Dose Instruction: INJECT 24 UNITS SUBCUTANEOUSLY AT BEDTIME Rx Instructions: INJECT 10-14 UNITS SUBCUTANEOUSLY AT BEDTIME nitroglycerin 0.4 mg tablet, sublingual 0.4 mg Sublingual UD PRN (Reason: Angina) Qty: 30 3RF aspirin 81 mg tablet,chewable 81 mg PO DAILY Qty: 30 0RF lisinopril 2.5 mg Tablet 2.5 mg PO BID amlodipine 5 mg tablet 5 mg PO DAILY Held Eliquis 2.5 mg tablet 2.5 mg PO Q12H Qty: 180 3RF Hold Instructions: Resume on 11/28/22. Discontinued isosorbide mononitrate 30 mg tablet 30 mg PO DAILY Discharge Orders: Discharge Order (Routine); Ordered 11/21/22 Ordered By: Anne Marie Oliva Admission Data Admit Date/Time: 11/21/22 06:42 Attending Provider: Anne Marie Oliva Admit Provider: Magaly Duke Primary Care Provider: Petr Blake Other Providers: Magaly Duke ; Raghu Carlisle ; Spike Galindo Coding Level of Care Code 84875 INP/OBS DISCH >30 MIN Diagnoses Acute respiratory failure with hypoxia J96.01 Cardiomyopathy, ischemic I25.5 ESRD (end stage renal disease) N18.6 CAD, multiple vessel I25.10 Elevated troponin R77.8 Atrial fibrillation I48.91 Atrial fibrillation type: unspecified Hypertension I10 T2DM (type 2 diabetes mellitus) E11.9 Dyslipidemia E78.5
[2022-11-21] MEDS ORDERED: ATORVASTATIN 40 MG TAB PO SCH (21:00)
[2022-11-22] MEDS ORDERED: lisinopril 5 MG TAB PO SCH (09:00)
[2022-11-22] MEDS ORDERED: CEFEPIME 1,000 MG in SYRINGE 0 ML IV SCH (12:00)
== END 2022-11-21 19:45 | disposition short-term general hospital (02) | DRG 291 ==
LOC: ED 05:24 → SUATTDRO 06:42 → EDINP 06:42 → 2S 13:06